=== PATIENT | female | born 1975 | race Caucasian/White ===

== ENCOUNTER 2020-01-28 14:12 | Inpatient (IN) | payer OTHER, SELFPAY ==
[2020-01-28] VITALS (7 sets, daily range): BP systolic 126–163; BP diastolic 69–79; PULSE 82–101; RESP 16–20; TEMP 36.6–36.9; O2SAT 96–98; BMI 27.4
--- NOTE | 2020-01-28 17:59 | ED.ABDPAIN ---
HPI - Abdominal Pain General Chief Complaint: Abdominal Pain Stated Complaint: abd pain Time Seen by Provider: 01/28/20 17:59 Source: patient Mode of arrival: ambulatory Limitations: no limitations History of Present Illness HPI narrative: patient status post gastric bypass surgery 9 weeks ago was doing good until 3 days ago when started having upper abdominal pain which is getting worse associated with nausea and poor oral intake been diabetic also and her blood sugar is in 200 range patient feels slightly bloated no bowel movement for last 3 days. No fever no chills no shortness of breath. No melena or blood in the stool MD elicited complaint: abdominal pain Onset (ago): day(s) (3) Pain Consistency: constant Location: epigastric Severity: moderate Quality: dull Radiation: epigastric Migration to: no migration Exacerbating factors: eating Relieving factors: nothing Associated symptoms: nausea Related Data Home Medications Medication Instructions Recorded Confirmed calcium carbonate 500 mg calcium 500 mg PO BID 01/08/20 01/16/20 (1,250 mg) tablet duloxetine 30 mg capsule,delayed 30 mg PO BID 01/08/20 01/16/20 release hydroxyzine HCl 50 mg tablet 50 mg PO BEDTIME 01/08/20 01/16/20 infusion set for insulin pump #2 ea 01/08/20 01/16/20 lactobacillus combination no.8 3 3,000 mmu cells PO DAILY 01/08/20 01/16/20 billion cell capsule multivitamin 1 cap PO DAILY 01/08/20 01/16/20 topiramate 100 mg tablet 100 mg PO BEDTIME 01/08/20 01/16/20 Previous Rx's Medication Instructions Recorded sucralfate 100 mg/mL oral 10 ml PO QID 30 Days #1200 ml 01/27/20 suspension Allergies Allergy/AdvReac Type Severity Reaction Status Date / Time codeine [Codeine] Allergy Unknown N/V, Unverified 01/08/20 12:29 vomiting Sulfa (Sulfonamide Allergy Unknown RASH Unverified 01/08/20 12:29 Antibiotics) [SULFA (SULFONAMIDE ANTIBIOTICS)] Sulfa Allergy Unknown rash Uncoded 01/08/20 12:29 Review of Systems Review of Systems REVIEW OF SYSTEMS: Pertinent positives and negatives are stated above in the history. GEN: no fevers, chills, fatigue HEENT: no nasal congestion, sore throat, ear pain NEURO: no headache, dizziness, focal weakness PULM: no cough, shortness of breath CV: no chest pain, palpitations, LE edema ABD: per HPI : no dysuria, urgency, frequency SKIN: no rash ROS otherwise negative x 10 Physical Exam Vital Signs: Vital Signs: Vital Signs Temp Pulse Resp BP Pulse Ox 01/28/20 21:14 98.5 F 88 20 148/79 H 96 01/28/20 20:13 16 01/28/20 19:34 97.8 F 84 16 145/77 H 98 01/28/20 19:15 98.5 F 82 20 140/69 H 97 01/28/20 14:23 97.8 F 101 H 16 126/70 98 Body Mass Index 27.4 Appearance: Alert. Oriented X3. in mild distress. Eyes: Pupils equal, round and reactive to light. ENT: oral mucosa dry no pallor or icterus Neck: Normal inspection. Neck supple. CVS: Normal heart rate and rhythm. Pulses normal. Respiratory: No respiratory distress. Breath sounds normal. Abdomen: Soft and tenderness present in upper abdomen, epigastric area no distension bowel sounds are sluggish no mass palpable . No rebound tenderness or guarding Skin: Skin warm and dry. Normal skin color. Normal skin turgor. Extremities: No lower extremity edema. Good range of movement Neuro: Oriented X 3. No motor deficit. No sensory deficit. Course Course Course Narrative: patient status post gastric bypass surgery with increased abdominal pain and dry heaves unable to take any p.o. fluids for last 3 days workup showed edematous efferent part of the small bowel without any obstruction. Patient is slightly ketotic from poor oral intake and diabetes blood sugar has improved to 231, lactic acid level is normal. Case discussed with FIORELLA for bariatric surgery will admit the patient IV hydration patient is on insulin pump on 13 units basal per 24 hours and patient is aware bolus doses according to carbohydrate intake MDM - Abdominal Pain Differential Diagnosis Differential diagnosis: Likely bowel perforation, gastritis and small bowel obstruction Lab Data Result diagrams: 01/28/20 19:10 01/28/20 19:10 Labs: Lab Results 01/28/20 01/28/20 01/28/20 Range/Units 19:10 19:10 19:10 WBC 12.3 H (4.8-10.8) X10*3/uL RBC 3.88 L (4.20-5.50) X10*6/uL Hgb 11.3 L (12.0-16.0) g/dl Hct 35.1 L (37-47) % MCV 90.5 (80-98) fL MCH 29.1 (27.0-33.0) pg MCHC 32.2 (31.0-35.0) g/dl RDW 13.5 (11.0-16.0) % Plt Count 315 (160-400) X10*3/uL MPV 10.9 (9.4-12.3) fL Immature Gran % (Auto) 0.7 H (0.0-0.4) % Neut % (Auto) 85.0 H (45-73) % Lymph % (Auto) 8.6 L (20-40) % [place] % (Auto) 5.3 (2-11) % Eos % (Auto) 0.1 (0-4) % Baso % (Auto) 0.3 (0-2) % Lymph # (Auto) 1.1 L (1.2-4.9) X10*3/uL [place] # (Auto) 0.7 (0.1-1.2) X10*3/uL Eos # (Auto) 0.0 (0.0-0.4) X10*3/uL Baso # (Auto) 0.0 (0.0-0.2) X10*3/uL Abs Immat Gran (auto) 0.09 H (0.00-0.03) X10*3/uL Absolute Neuts (auto) 10.5 H (2.0-8.3) X10*3/uL Absolute Nucleated RBC 0.000 (0.0-0.012) X10*3/uL Nucleated RBC % (auto) 0.0 (0.0-0.2) /100WBC Sodium 137 (135-145) mmol/L Potassium 4.5 (3.3-5.1) mmol/l Chloride 104 (96-108) mmol/L Carbon Dioxide 16 L (22-29) mmol/L Anion Gap 22 H (12-20) BUN 18 H (9-16) mg/dL Creatinine 0.93 (0.5-1.4) mg/dL Estim Creat Clear Calc 75.3 Estimated GFR > 60 POC Glucose (60-115) mg/dL Random Glucose 326 H (60-115) mg/dL Lactic Acid 0.8 (0.5-2.0) mmol/L Calcium 8.3 L (8.4-10.2) mg/dL Magnesium (1.6-2.6) mg/dL Total Bilirubin 0.3 (0.0-1.0) mg/dL Direct Bilirubin 0.2 (0.0-0.5) mg/dL AST 13 (5-31) U/L ALT 11 (0-31) U/L Alkaline Phosphatase 118 H (39-117) U/L Total Protein 6.0 L (6.5-8.0) g/dL Albumin 3.2 L (3.5-5.0) g/dL Lipase 8 (8-78) U/L Urine Color Urine Appearance Urine pH (5.0-8.0) Ur Specific [place] (1.005-1.025) Urine Protein (NEG-TRACE) MG/DL Urine Glucose (UA) (NEG) MG/DL Urine Ketones (NEG) MG/DL Urine Blood (NEG) Urine Nitrite (NEG) Ur Leukocyte Esterase (NEG) Urine RBC (0) /HPF Urine WBC (0-4) /HPF Ur Squamous Epith Cells /LPF Urine Bacteria /LPF Acetone, Qual (Negative) Coronavirus (PCR) (Negative) 01/28/20 01/28/20 01/28/20 Range/Units 19:10 19:10 20:17 WBC (4.8-10.8) X10*3/uL RBC (4.20-5.50) X10*6/uL Hgb (12.0-16.0) g/dl Hct (37-47) % MCV (80-98) fL MCH (27.0-33.0) pg MCHC (31.0-35.0) g/dl RDW (11.0-16.0) % Plt Count (160-400) X10*3/uL MPV (9.4-12.3) fL Immature Gran % (Auto) (0.0-0.4) % Neut % (Auto) (45-73) % Lymph % (Auto) (20-40) % [place] % (Auto) (2-11) % Eos % (Auto) (0-4) % Baso % (Auto) (0-2) % Lymph # (Auto) (1.2-4.9) X10*3/uL [place] # (Auto) (0.1-1.2) X10*3/uL Eos # (Auto) (0.0-0.4) X10*3/uL Baso # (Auto) (0.0-0.2) X10*3/uL Abs Immat Gran (auto) (0.00-0.03) X10*3/uL Absolute Neuts (auto) (2.0-8.3) X10*3/uL Absolute Nucleated RBC (0.0-0.012) X10*3/uL Nucleated RBC % (auto) (0.0-0.2) /100WBC Sodium (135-145) mmol/L Potassium (3.3-5.1) mmol/l Chloride (96-108) mmol/L Carbon Dioxide (22-29) mmol/L Anion Gap (12-20) BUN (9-16) mg/dL Creatinine (0.5-1.4) mg/dL Estim Creat Clear Calc Estimated GFR POC Glucose (60-115) mg/dL Random Glucose (60-115) mg/dL Lactic Acid (0.5-2.0) mmol/L Calcium 8.2 L (8.4-10.2) mg/dL Magnesium 1.9 (1.6-2.6) mg/dL Total Bilirubin (0.0-1.0) mg/dL Direct Bilirubin (0.0-0.5) mg/dL AST (5-31) U/L ALT (0-31) U/L Alkaline Phosphatase (39-117) U/L Total Protein (6.5-8.0) g/dL Albumin (3.5-5.0) g/dL Lipase (8-78) U/L Urine Color YELLOW Urine Appearance CLEAR Urine pH 6.0 (5.0-8.0) Ur Specific [place] >= 1.030 H (1.005-1.025) Urine Protein 1+ H (NEG-TRACE) MG/DL Urine Glucose (UA) 250 H (NEG) MG/DL Urine Ketones >=80 (NEG) MG/DL Urine Blood NEG (NEG) Urine Nitrite NEG (NEG) Ur Leukocyte Esterase NEG (NEG) Urine RBC 0 (0) /HPF Urine WBC 0-2 (0-4) /HPF Ur Squamous Epith Cells 1+ /LPF Urine Bacteria 1+ /LPF Acetone, Qual Small H (Negative) Coronavirus (PCR) (Negative) 01/28/20 01/28/20 Range/Units 22:04 22:25 WBC (4.8-10.8) X10*3/uL RBC (4.20-5.50) X10*6/uL Hgb (12.0-16.0) g/dl Hct (37-47) % MCV (80-98) fL MCH (27.0-33.0) pg MCHC (31.0-35.0) g/dl RDW (11.0-16.0) % Plt Count (160-400) X10*3/uL MPV (9.4-12.3) fL Immature Gran % (Auto) (0.0-0.4) % Neut % (Auto) (45-73) % Lymph % (Auto) (20-40) % [place] % (Auto) (2-11) % Eos % (Auto) (0-4) % Baso % (Auto) (0-2) % Lymph # (Auto) (1.2-4.9) X10*3/uL [place] # (Auto) (0.1-1.2) X10*3/uL Eos # (Auto) (0.0-0.4) X10*3/uL Baso # (Auto) (0.0-0.2) X10*3/uL Abs Immat Gran (auto) (0.00-0.03) X10*3/uL Absolute Neuts (auto) (2.0-8.3) X10*3/uL Absolute Nucleated RBC (0.0-0.012) X10*3/uL Nucleated RBC % (auto) (0.0-0.2) /100WBC Sodium (135-145) mmol/L Potassium (3.3-5.1) mmol/l Chloride (96-108) mmol/L Carbon Dioxide (22-29) mmol/L Anion Gap (12-20) BUN (9-16) mg/dL Creatinine (0.5-1.4) mg/dL Estim Creat Clear Calc Estimated GFR POC Glucose 231 H (60-115) mg/dL Random Glucose (60-115) mg/dL Lactic Acid (0.5-2.0) mmol/L Calcium (8.4-10.2) mg/dL Magnesium (1.6-2.6) mg/dL Total Bilirubin (0.0-1.0) mg/dL Direct Bilirubin (0.0-0.5) mg/dL AST (5-31) U/L ALT (0-31) U/L Alkaline Phosphatase (39-117) U/L Total Protein (6.5-8.0) g/dL Albumin (3.5-5.0) g/dL Lipase (8-78) U/L Urine Color Urine Appearance Urine pH (5.0-8.0) Ur Specific [place] (1.005-1.025) Urine Protein (NEG-TRACE) MG/DL Urine Glucose (UA) (NEG) MG/DL Urine Ketones (NEG) MG/DL Urine Blood (NEG) Urine Nitrite (NEG) Ur Leukocyte Esterase (NEG) Urine RBC (0) /HPF Urine WBC (0-4) /HPF Ur Squamous Epith Cells /LPF Urine Bacteria /LPF Acetone, Qual (Negative) Coronavirus (PCR) NEGATIVE (Negative) Discharge Plan Discharge Clinical Impression: History of Efra-en-Y gastric bypass, Hyperglycemia Abdominal pain Qualifiers: Abdominal location: periumbilical Qualified Code(s): R10.33 - Periumbilical pain Patient Disposition: Admitted As Inpatient [facility] Past Medical History Medical History (Updated 01/28/20 @ 23:22 by Annalee Boykin PA-C) Chronic migraine w/o aura w/o status migrainosus, not intractable Hypertension Insulin dependent diabetes mellitus Malabsorption due to intolerance, not elsewhere classified Overweight (BMI 25.0-29.9) Surgical History (Updated 01/28/20 @ 23:22 by Annalee Boykin PA-C) History of History of repair of hiatal hernia History of Efra-en-Y gastric bypass History of total abdominal hysterectomy S/P laparoscopic sleeve gastrectomy Family History Family History Father Type 2 diabetes mellitus HTN (hypertension) Mother Obesity History of breast cancer Daughter No problems noted. Brother No problems noted. Son No problems noted. Social History Social History Alcohol intake: current Smoking Status: Former smoker Substance Use Type: Marijuana Advance Directives: No Advance Directives Information Provided: No
--- NOTE | 2020-01-28 18:08 | CT_ITS ---
EXAMINATION: CT ABDOMEN AND PELVIS WITH CONTRAST CLINICAL INFORMATION: Upper abdominal pain status post gastric bypass. COMPARISON: None TECHNIQUE: Multidetector volumetric images were obtained from the superior aspect of the liver through the pubic symphysis following administration 85 mL ofOmnipaque 350 intravenous contrast. Sagittal and coronal reformatted images were obtained on the technologist's workstation. Oral contrast: No This CT examination was performed using dose optimization techniques as appropriate, variously including the following: *Automated exposure control *Adjustment of mA and/or kV according to patient size (this includes techniques or standardized protocols for targeted exams where dose is matched to indication/reason for exam; i.e. extremities or head) *Use of iterative reconstruction technique DLP: 530 mGy-cm FINDINGS: LUNG BASES: The visualized lung bases are unremarkable. LIVER, GALLBLADDER, AND BILIARY TREE: The liver is normal in size, shape, and attenuation. No focal hepatic lesion or biliary ductal dilatation is present. The gallbladder is unremarkable with no evidence of radiopaque gallstones, gallbladder wall thickening, or obvious pericholecystic inflammatory changes. PANCREAS: Unremarkable. SPLEEN: Unremarkable. ADRENAL GLANDS: Unremarkable. KIDNEYS AND URETERS: The kidneys are normal in size, shape, and attenuation. No hydronephrosis, hydroureter, or calculi seen. No perinephric stranding. BLADDER: Unremarkable. GASTROINTESTINAL TRACT: Status post gastric bypass. The efferent loop demonstrates significant edema of the wall involving about 20 cm of length of the proximal small bowel. This does not cause obstruction. Oral contrast reaches the mid small bowel loops which are nondilated. Contrast is also present in the colon, mixed with stool. There is a moderate to large-volume of stool in the colon. The appendix is normal. ABDOMINAL WALL: No significant hernia is appreciated. LYMPH NODES: Normal. VASCULAR: There are scattered small volume of Atherosclerotic vascular calcifications of aorta and iliac arteries. No aneurysm. PELVIC VISCERA: Unremarkable. OSSEOUS STRUCTURES: Unremarkable. CT/CT abdomen pelvis w con IMPRESSION: Status post gastric bypass. There is significant edema involving the efferent loop. There is no obstruction.
[2020-01-28] MEDS: ondansetron HCL 4 MG/2 ML VIAL IVPUSH ×2 (18:57→21:59)
[2020-01-28] MEDS: Morphine Sulfate 4 MG/ML CARTRIDGE IVPUSH ×2 (18:57→20:13)
[2020-01-28] MEDS: 0.9 % Sodium Chloride 1,000 ML 999 ML IVCONT ×2 (18:57→21:59)
[2020-01-28 19:25] LABS: MANUAL DIFF FLAG NO
[2020-01-28 19:26] LABS: Basophils Percent Auto 0.3 % (0-2); Eosinophils Percent Auto 0.1 % (0-4); Hematocrit 35.1 % (37-47); Hemoglobin 11.3 g/dl (12.0-16.0); Imm Gran Abs Auto 0.09 X10*3/uL (0.00-0.03); Imm Gran Pct Auto 0.7 % (0.0-0.4); Lymphocytes Absolute Auto 1.1 X10*3/uL (1.2-4.9); Lymphocytes Percent Auto 8.6 % (20-40); Mean Corpuscular HGB Conc 32.2 g/dl (31.0-35.0); Mean Corpuscular Hemoglobin 29.1 pg (27.0-33.0); Mean Corpuscular Volume 90.5 fL (80-98); Mean Platelet Volume 10.9 fL (9.4-12.3); Monocytes Absolute Auto 0.7 X10*3/uL (0.1-1.2); Monocytes Percent Auto 5.3 % (2-11); Neutrophils Absolute Auto 10.5 X10*3/uL (2.0-8.3); Platelet Count 315 X10*3/uL (160-400); Red Blood Count 3.88 X10*6/uL (4.20-5.50); Red Cell Distribution Width 13.5 % (11.0-16.0); White Blood Count 12.3 X10*3/uL (4.8-10.8)
--- NOTE | 2020-01-28 19:40 | PC.NURSE ---
Pt reports decreased nausea and epigastric pain since medication. ambulates to bathroom w. steady and white gait
[2020-01-28 19:55] LABS: Lactic Acid 0.8 mmol/L (0.5-2.0)
[2020-01-28 19:57] LABS: Calcium 8.2 mg/dL (8.4-10.2); Magnesium 1.9 mg/dL (1.6-2.6)
[2020-01-28 20:00] LABS: Acetone, serum QL Small (Negative); Alanine Aminotransferase 11 U/L (0-31); Albumin Level 3.2 g/dL (3.5-5.0); Alkaline Phosphatase 118 U/L (39-117); Anion Gap 22 (12-20); Aspartate Amino Transferase 13 U/L (5-31); Bilirubin Direct 0.2 mg/dL (0.0-0.5); Bilirubin Total 0.3 mg/dL (0.0-1.0); Blood Urea Nitrogen 18 mg/dL (9-16); Calcium 8.3 mg/dL (8.4-10.2); Carbon Dioxide 16 mmol/L (22-29); Chloride 104 mmol/L (96-108); Creatinine Clr Calc Pharmacy 75.3; Estimated Glomerular Filt Rate > 60; Glucose Random 326 mg/dL (60-115); Lipase 8 U/L (8-78); Potassium 4.5 mmol/l (3.3-5.1); Sodium 137 mmol/L (135-145)
[2020-01-28 20:23] LABS: Appearance Urine CLEAR; Color Urine YELLOW; Glucose Urine UA 250 MG/DL (NEG); Leukocyte Esterase Urine NEG (NEG); Nitrite Urine NEG (NEG); Specific Gravity - Urine >= 1.030 (1.005-1.025); Urine Blood NEG (NEG); Urine Ketones >=80 MG/DL (NEG); Urine Protein 1+ MG/DL (NEG-TRACE)
[2020-01-28 20:31] LABS: RBC Urine 0 /HPF (0); WBC Urine 0-2 /HPF (0-4)
[2020-01-28 20:32] LABS: Bacteria Urine 1+ /LPF; Squamous Epithelial Cell Urine 1+ /LPF
--- NOTE | 2020-01-28 21:09 | PC.NURSE ---
Pt reports increased nausea, provider aware
[2020-01-28 22:09] LABS: Glucose, Whole Blood 231 mg/dL (60-115)
--- NOTE | 2020-01-28 22:58 | P.HPGS_ITS ---
History of Present Illness History of Present Illness Chief complaint: ABDOMINAL PAIN <Annalee Boykin PA-C - Last Filed: 01/28/20 23:25> Narrative: Araceli Vides is a 44 year old female who is s/p LSG to [facility] 9 weeks ago. History per ED attending. Pt was feeling well until 4 d prior to admission when she began having LUQ pain and multiple episodes of loose stool. This persisted and became associated with nausea and dry heaves. She called the bariatric office 01/26 with similar complaints and she was started on carafate id for presumed gastritis. Her symtpoms worsened today and she not ed dark urine due to inability to tolerate fluids and came to ED at [facility]. Kaci continues to have + flatus, no BM's in ED. <Annalee Boykin PA-C - Last Filed: 01/28/20 23:25> this is a 44-year-old lady who underwent conversion from a sleeve gastrectomy to a gastric bypass for severe gastroesophageal reflux about 9 weeks ago. Patient reports she started having some loose stools that turned to diarrhea over this past weekend. She took 1/2 of an Imodium and had no further stools. She did call and speak with me 2 days ago and reported having some mild epigastric discomfort. We attributed to likely gastritis following recent surgery and placed her on Carafate. Patient reports yesterday her epigastric pain was worse and she had associated nausea and dry heaves and was unable to tolerate liquids and had dark urine. She came to the emergency department and had IV fluids as well as workup with laboratory values and CT scan abdomen pelvis with p.o. contrast. Laboratory values were consistent with dehydration with a white blood cell count of 12 neutrophilia to 80%. Her kidney function was within normal limits. Patient was hydrated and today's labs are now normal. Patient did had a CT scan abdomen and pelvis with p.o. contrast which showed some edematous appearing bowel that is likely the Becki limb. There is no evidence of any bowel obstruction. There is contrast in the distal small bowel as well as all of the transverse colon. There is some mild stool burden within the colon. Patient reports her pain is significantly improved after being hydrated. When she came to the emergency department her pain was a 10/10 and is now 6/10. Her nausea has resolved. She is passing gas but has not had a bowel movement the past 3 days. Vital signs are within normal limits. <Audelia Castaneda MD - Last Filed: 01/29/20 10:28> Review of Systems Constitutional: Constitutional: Reports anorexia, Reports fatigue, Denies fe isaiah(s) and Reports lethargy <Audelia Castaneda MD - Last Filed: 01/29/20 10:28> Eyes: Eyes: Denies blurry vision, Denies diplopia and Reports requires corrective lenses <Audelia Castaneda MD - Last Filed: 01/29/20 10:28> ENT: Denies dysphagia, Denies vertigo and Denies dizziness <Audelia Castaneda MD - Last Filed: 01/29/20 10:28> Cardiovascular: Cardiovascular: Denies Abdominal Distension, Denies chest pain, Denies chest pain at rest, Denies chest pain with activity, Reports Epigastric Pain, Denies diaphoresis, Denies syncope, Denies rapid heart rate and Denies pedal edema <Audelia Castaneda MD - Last Filed: 01/29/20 10:28> Gastrointestinal: Gastrointestinal: Reports as per HPI <Annalee Boykin PA-C - Last Filed: 01/28/20 23:25> Gastrointestinal: Reports abdominal pain ( epigastric with associated dry heaving and nausea), Denies dysphagia, Denies heartburn, Reports diarrhea, Reports loose stools (No stools in the past 3 days), Reports nausea and Denies vomiting <Audelia Castaneda MD - Last Filed: 01/29/20 10:28> Genitourinary: Genitourinary: Denies hematuria, Denies urinary frequency, Denies difficulty voiding, Denies urinary hesitancy and Denies urinary urgency <Audelia Castaneda MD - Last Filed: 01/29/20 10:28> Musculoskeletal: Musculoskeletal: Denies joint swelling, Denies muscle weakness and Denies stiffness <Audelia Castaneda MD - Last Filed: 01/29/20 10:28> Neurologic: Denies confusion, Denies vertigo, Denies dizziness, Denies syncope and Denies memory loss <Audelia Castaneda MD - Last Filed: 01/29/20 10:28> Psychiatric: Psychiatric: Reports anxiety, Denies confusion, Reports depression, Denies memory loss and Denies suicidal ideation <Audelia Castaneda MD - Last Filed: 01/29/20 10:28> Endocrine: Endocrine: Denies cold intolerance, Reports fatigue, Denies heat intolerance and Denies polydipsia <Audelia Castaneda MD - Last Filed: 01/29/20 10:28> Hematologic/Lymphatic: Hematologic/Lymphatic: Denies easy bleeding, Denies easy bruising and Denies lymphadenopathy <Audelia Castaneda MD - Last Filed: 01/29/20 10:28> [facility] Past Medical History Medical History: Medical History Chronic migraine w/o aura w/o status migrainosus, not intractable Hypertension Insulin dependent diabetes mellitus Malabsorption due to intolerance, not elsewhere classified Overweight (BMI 25.0-29.9) <Annalee Boykin PA-C - Last Filed: 01/28/20 23:25> Family History Family History: Family History Father Type 2 diabetes mellitus HTN (hypertension) Mother Obesity History of breast cancer Daughter No problems noted. Brother No problems noted. Son No problems noted. <Annalee Boykin PA-C - Last Filed: 01/28/20 23:25> Surgical History Surgical History: Surgical History History of History of repair of hiatal hernia History of Becki-en-Y gastric bypass History of total abdominal hysterectomy S/P laparoscopic sleeve gastrectomy <Annalee Boykin PA-C - Last Filed: 01/28/20 23:25> Social History Social History: Social History Household Members: Unknown / Unable to assess Housing: House Alcohol intake: current Smoking Status: Unknown if ever smoked Substance Use Type: Unknown Currently Displaying Signs/Symptoms of Drug Intoxication Withdrawal: No Advance Directives: No Advance Directives Information Provided: No Do you have thoughts of harming others: None Recently lost weight without trying: No service: No Current occupational status: employed <Annalee Boykin PA-C - Last Filed: 01/28/20 23:25> Meds Allergies/Adverse reactions: Allergies Allergy/AdvReac Type Severity Reaction Status Date / Time codeine [Codeine] Allergy Unknown N/V, Unverified 01/08/20 12:29 vomiting Sulfa (Sulfonamide Allergy Unknown RASH Unverified 01/08/20 12:29 Antibiotics) [SULFA (SULFONAMIDE ANTIBIOTICS)] Sulfa Allergy Unknown rash Uncoded 01/08/20 12:29 <Annalee Boykin PA-C - Last Filed: 01/28/20 23:25> Home medications: Home Medications Medication Instructions Recorded Confirmed Type calcium carbonate 500 mg calcium 500 mg PO BID 01/08/20 01/29/20 History (1,250 mg) tablet duloxetine 30 mg capsule,delayed 30 mg PO BID 01/08/20 01/16/20 History release hydroxyzine HCl 50 mg tablet 50 mg PO BEDTIME 01/08/20 01/16/20 History infusion set for insulin pump #2 ea 01/08/20 01/16/20 History lactobacillus combination no.8 3 3,000 mmu cells PO DAILY 01/08/20 01/16/20 History billion cell capsule multivitamin 1 cap PO DAILY 01/08/20 01/16/20 History topiramate 100 mg tablet 100 mg PO BEDTIME 01/08/20 01/16/20 History <Annalee Boykin PA-C - Last Filed: 01/28/20 23:25> Physical Exam Vital Signs: Vital Signs: Vital Signs Temp Pulse Resp BP Pulse Ox 01/28/20 21:14 98.5 F 88 20 148/79 H 96 01/28/20 20:13 16 01/28/20 19:34 97.8 F 84 16 145/77 H 98 01/28/20 19:15 98.5 F 82 20 140/69 H 97 01/28/20 14:23 97.8 F 101 H 16 126/70 98 Body Mass Index 27.4 <SILVIA Adamson Last Filed: 01/28/20 23:25> per ED attending Dr Byers <SILVIA Adamson Last Filed: 01/28/20 23:25> Const: General: cooperative, healthy appearing, comfortable and no acute distress; No confusion <Audelia Castaneda MD - Last Filed: 01/29/20 10:28> Orientation/consciousness: No confusion <Audelia Castaneda MD - Last Filed: 01/29/20 10:28> HENMT: Head: Yes normal to inspection, Yes normocephalic and Yes atraumatic <Audelia Castaneda MD - Last Filed: 01/29/20 10:28> Eyes: General: appearance normal, both eyes and all related structures <Audelia Castaneda MD - Last Filed: 01/29/20 10:28> Sclerae: sclerae normal <Audelia Castaneda MD - Last Filed: 01/29/20 10:28> EOM: EOMs intact bilaterally <Audelia Castaneda MD - Last Filed: 01/29/20 10:28> Neck: Neck: Yes normal visual inspection, Yes full ROM and Yes no lymphadenopathy <Audelia Castaneda MD - Last Filed: 01/29/20 10:28> Thyroid: Thyroid normal <Audelia Castaneda MD - Last Filed: 01/29/20 10:28> Chest: Chest palpation & inspection: normal inspection of the chest <Audelia Castaneda MD - Last Filed: 01/29/20 10:28> Resp: Effort & Inspection: normal respiratory effort, able to speak in complete sentences, no audible wheezes and no cough <Audelia Castaneda MD - Last Filed: 01/29/20 10:28> Auscultation: clear to auscultation bilaterally <Audelia Castaneda MD - Last Filed: 01/29/20 10:28> Cardio: Jugular venous distension: no JVD <Audelia Castaneda MD - Last Filed: 01/29/20 10:28> Heart sounds: S1 normal heart sound present, S2 normal heart sound present, no gallops, no murmurs and no rubs <Audelia Castaneda MD - Last Filed: 01/29/20 10:28> GI: Inspection: Yes normal to inspection, No Abdominal wall edema, No distended and Yes obesity <Audelia Castaneda MD - Last Filed: 01/29/20 10:28> Palpation (GI): Soft to palpation, nontender, no guarding, no hepatosplenomegaly , no hernias and no masses <Audelia Castaneda MD - Last Filed: 01/29/20 10:28> Skin: General skin exam: no rashes or lesions noted <Audelia Castaneda MD - Last Filed: 01/29/20 10:28> Neuro: General: No confusion <Audelia Castaneda MD - Last Filed: 01/29/20 10:28> Extrem: General: Yes normal to inspection and Yes full ROM <Audelia Castaneda MD - Last Filed: 01/29/20 10:28> Right upper extremity: normal to inspection <Audelia Castaneda MD - Last Filed: 01/29/20 10:28> Left upper extremity: normal to inspection and full ROM <Audelia Castaneda MD - Last Filed: 01/29/20 10:28> Psych: Appearance: grossly normal and well kempt <Audelia Castaneda MD - Last Filed: 01/29/20 10:28> Speech and movement: Normal speech and movement present <Audelia Castaneda MD - Last Filed: 01/29/20 10:28> Affect: normal affect <Audelia Castaneda MD - Last Filed: 01/29/20 10:28> Attitude: cooperative <Audelia Castaneda MD - Last Filed: 01/29/20 10:28> Thought process: Normal thought process present <Audelia Castaneda MD - Last Filed: 01/29/20 10:28> Thought content: Normal thought content present <Audelia Castaneda MD - Last Filed: 01/29/20 10:28> Insight: Good insight present (Psych) <Audelia Castaneda MD - Last Filed: 01/29/20 10:28> Results Results Labs: Short CBC 01/28/20 Range/Units 19:10 WBC 12.3 H (4.8-10.8) X10*3/uL Hgb 11.3 L (12.0-16.0) g/dl Hct 35.1 L (37-47) % Plt Count 315 (160-400) X10*3/uL BMP 01/28/20 01/28/20 19:10 19:10 Sodium 137 Potassium 4.5 Chloride 104 Carbon Dioxide 16 L BUN 18 H Creatinine 0.93 Calcium 8.3 L 8.2 L Liver Function 01/28/20 Range/Units 19:10 Total Bilirubin 0.3 (0.0-1.0) mg/dL Direct Bilirubin 0.2 (0.0-0.5) mg/dL AST 13 (5-31) U/L ALT 11 (0-31) U/L Alkaline Phosphatase 118 H (39-117) U/L Albumin 3.2 L (3.5-5.0) g/dL Urine 01/28/20 Range/Units 20:17 Urine Color YELLOW Urine Appearance CLEAR Urine pH 6.0 (5.0-8.0) Ur Specific [place] >= 1.030 H (1.005-1.025) Urine Protein 1+ H (NEG-TRACE) MG/DL Urine Glucose (UA) 250 H (NEG) MG/DL <Annalee Boykin PA-C - Last Filed: 01/28/20 23:25> CT scan - pelvis: report reviewed (edematous proximal small bowel, no obstruction), image r eviewed (large amounts of stool, question of patency of j-j anastomosis) and other (Discussed findings with Dr Schmidt - covering attending. ) <Annalee Boykin PA-C - Last Filed: 01/28/20 23:25> Assessment and Plan (1) History of Becki-en-Y gastric bypass: Problem details: laparoscopic conversion of sleeve gastrectomy to becki-en-y gastric bypass 11/26/2019, Dr Castaneda to review CT scan in am. <Annalee Boykin PA-C - Last Filed: 01/28/20 23:25> Status: Acute <SILVIA Adamson Last Filed: 01/28/20 23:25> (2) Insulin dependent diabetes mellitus: Problem details: patient has insulin pump - humalog, uses ~13 U in 24 hrs, admitted with hyperglycemia , normalizing with IV hydration. Will continue to use insulin pump to keep BS between 100 and 200. <SILVIA Adamson Last Filed: 01/28/20 23:25> Status: Inactive <SILVIA Adamson Last Filed: 01/28/20 23:25> (3) Abdominal pain: Qualifiers: Abdominal location: periumbilical Qualified Code(s): R10.33 - Periumbilical pain <Annalee Boykin PA-C - Last Filed: 01/28/20 23:25> Problem details: Pt with 5 d history of loose stool, nausea, dry heaves, upper abd pain and inability to tolerate po liquids or food. Slightly elevated WBC with increased neutrophils with edematous bowel may represent GI infection - started on Zosyn. Stool cultures if patient continues to have loose stool. Pt to remain NPO, IVF hydration, IV PPI, repeat labs in am. Dr Castaneda bariatric surgeon to assess in am <Annalee Boykin PA-C - Last Filed: 01/28/20 23:25> Status: Acute <Annalee Boykin PA-C - Last Filed: 01/28/20 23:25> I reviewed the patient's CT scan of the abdomen and pelvis which showed some edematous cyst proximal small bowel that is likely the Becki limb. Patient did have 2 day history of loose stools which may likely main that her gastroenteritis is infectious in nature. Patient has not had any further stools in past 3 days. If patient does have further stools we will take a sample and s ent for culture. Patient is currently being kept NPO. I plan to do a endoscopy today to further evaluate the stomach for any evidence ischemia or ulceration. I discussed this with the patient and she agrees to proceed with the plan. Patient is clinically improved after being hydrated. If there is no evidence of abnormality on endoscopy will restart the patient on protein shakes and likely discharge the patient home tomorrow if she has better pain control. <Audelia Castaneda MD - Last Filed: 01/29/20 10:28>
[2020-01-28 23:23] LABS: SARS COV2 PCR INHOUSE NEGATIVE (Negative)
[2020-01-28] MEDS: Prochlorperazine Edisylate 10 MG/2 ML VIAL IVPUSH (23:41)
[2020-01-29] VITALS (8 sets, daily range): BP systolic 103–141; BP diastolic 58–75; PULSE 68–82; RESP 12–20; TEMP 36.1–37.7; O2SAT 97–100
--- NOTE | 2020-01-29 00:01 | PC.NURSE ---
rn to rn with gianni.
[2020-01-29 00:29] LABS: Lactic Acid 0.7 mmol/L (0.5-2.0)
[2020-01-29] MEDS: Piperacillin Sodium/Tazobactam 3.375 GM in 0.9 % Sodium Chloride 50 ML IV ×4 (01:10→20:09)
[2020-01-29] MEDS: Lactated Ringers 1,000 ML 150 ML IVCONT ×2 (01:12→08:15)
[2020-01-29 01:13] LABS: Glucose, Whole Blood 193 mg/dL (60-115)
[2020-01-29] MEDS: Pantoprazole Sodium 40 MG/10 ML VIAL IVPUSH ×3 (01:27→20:09)
[2020-01-29 06:51] LABS: Basophils Percent Auto 0.4 % (0-2); Eosinophils Absolute Auto 0.2 X10*3/uL (0.0-0.4); Eosinophils Percent Auto 1.6 % (0-4); Hematocrit 29.9 % (37-47); Hemoglobin 9.7 g/dl (12.0-16.0); Imm Gran Abs Auto 0.05 X10*3/uL (0.00-0.03); Imm Gran Pct Auto 0.5 % (0.0-0.4); Lymphocytes Absolute Auto 2.4 X10*3/uL (1.2-4.9); Lymphocytes Percent Auto 23.9 % (20-40); MANUAL DIFF FLAG NO; Mean Corpuscular HGB Conc 32.4 g/dl (31.0-35.0); Mean Corpuscular Hemoglobin 29.4 pg (27.0-33.0); Mean Corpuscular Volume 90.6 fL (80-98); Mean Platelet Volume 10.8 fL (9.4-12.3); Monocytes Absolute Auto 0.7 X10*3/uL (0.1-1.2); Monocytes Percent Auto 7.3 % (2-11); Neutrophils Absolute Auto 6.5 X10*3/uL (2.0-8.3); Neutrophils Percent Auto 66.3 % (45-73); Platelet Count 288 X10*3/uL (160-400); Red Cell Distribution Width 13.2 % (11.0-16.0); White Blood Count 9.8 X10*3/uL (4.8-10.8)
[2020-01-29 07:19] LABS: Anion Gap 13 (12-20); Blood Urea Nitrogen 13 mg/dL (9-16); Calcium 7.9 mg/dL (8.4-10.2); Carbon Dioxide 21 mmol/L (22-29); Chloride 108 mmol/L (96-108); Creatinine Clr Calc Pharmacy 97.3; Estimated Glomerular Filt Rate > 60; Glucose Random 155 mg/dL (60-115); Potassium 3.9 mmol/l (3.3-5.1); Sodium 138 mmol/L (135-145)
[2020-01-29] MEDS: 0.9 % Sodium Chloride Flush 3 ML SYRINGE IVFLUSH (08:14)
[2020-01-29 08:57] LABS: Glucose, Whole Blood 136 mg/dL (60-115)
--- NOTE | 2020-01-29 09:30 | MHC.SHP ---
Pre-Procedural Eval Section A The patient is an INPATIENT: Yes The History & Physical has been completed within 30 days and I have reviewed it.: Yes Section B Chief Complaint: ABDOMINAL PAIN Allergies: Allergies Allergy/AdvReac Type Severity Reaction Status Date / Time codeine [Codeine] Allergy Unknown N/V, Unverified 01/08/20 12:29 vomiting Sulfa (Sulfonamide Allergy Unknown RASH Unverified 01/08/20 12:29 Antibiotics) [SULFA (SULFONAMIDE ANTIBIOTICS)] Sulfa Allergy Unknown rash Uncoded 01/08/20 12:29 Plan Patient has been examined and remains a candidate for the planned procedure
--- NOTE | 2020-01-29 09:33 | MHC.CM.PN ---
REHAB SERVICES AIDE completed with pt who reports she lives at home with her and adult son. Pt reports she is independent with care and mobility. She does not have any services. Pt uses an insulin pump, has no other DME. Pt reports she has a HCP completed naming her as her agent. Pt confirms PCP is Vitaliy Godfrey. Pt denies having any concerns related to DC. Current DC plan is home with no services family to transport
--- NOTE | 2020-01-29 11:30 | HO.ANESPROP2 ---
[facility] Past Medical History Medical History Chronic migraine w/o aura w/o status migrainosus, not intractable Hypertension Insulin dependent diabetes mellitus Malabsorption due to intolerance, not elsewhere classified Overweight (BMI 25.0-29.9) Family History Family History Father Type 2 diabetes mellitus HTN (hypertension) Mother Obesity History of breast cancer Daughter No problems noted. Brother No problems noted. Son No problems noted. Surgical History Surgical History History of History of repair of hiatal hernia History of Efra-en-Y gastric bypass History of total abdominal hysterectomy S/P laparoscopic sleeve gastrectomy Social History Social History Household Members: Unknown / Unable to assess Housing: House Alcohol intake: current Smoking Status: Former smoker Smoking Quit Date: 1998 Substance Use Type: Unknown Currently Displaying Signs/Symptoms of Drug Intoxication Withdrawal: No Advance Directives: No Advance Directives Information Provided: No Do you have thoughts of harming others: None Do you have a plan to hurt others: No Plan Recently lost weight without trying: No service: No Current occupational status: employed Meds Allergies Allergy/AdvReac Type Severity Reaction Status Date / Time codeine [Codeine] Allergy Unknown N/V, Unverified 01/08/20 12:29 vomiting Sulfa (Sulfonamide Allergy Unknown RASH Unverified 01/08/20 12:29 Antibiotics) [SULFA (SULFONAMIDE ANTIBIOTICS)] Sulfa Allergy Unknown rash Uncoded 01/08/20 12:29 Home Medications Medication Instructions Recorded Confirmed Type calcium carbonate 500 mg calcium 500 mg PO BID 01/08/20 01/29/20 History (1,250 mg) tablet duloxetine 30 mg capsule,delayed 30 mg PO BID 01/08/20 01/16/20 History release hydroxyzine HCl 50 mg tablet 50 mg PO BEDTIME 01/08/20 01/16/20 History infusion set for insulin pump #2 ea 01/08/20 01/16/20 History lactobacillus combination no.8 3 3,000 mmu cells PO DAILY 01/08/20 01/16/20 History billion cell capsule multivitamin 1 cap PO DAILY 01/08/20 01/16/20 History topiramate 100 mg tablet 100 mg PO BEDTIME 01/08/20 01/16/20 History Exam Exam Date and Time: January 29, 2020 1130 Height,Weight and Vital Signs: Height 5 ft 4 in Weight 72.575 kg Last Vital Signs Temp 97.7 F 01/29/20 11:20 Pulse 70 01/29/20 11:20 Resp 18 01/29/20 11:20 BP 138/72 01/29/20 11:20 Pulse Ox 99 01/29/20 11:20 Pertinent Lab Results Pertinent Lab Results: Laboratory Tests 01/28/20 01/28/20 01/28/20 19:10 19:10 19:10 WBC 12.3 H RBC 3.88 L Hgb 11.3 L Hct 35.1 L MCV 90.5 MCH 29.1 MCHC 32.2 RDW 13.5 Plt Count 315 MPV 10.9 Immature Gran % (Auto) 0.7 H Neut % (Auto) 85.0 H Lymph % (Auto) 8.[address] [place] % (Auto) 5.3 Eos % (Auto) 0.1 Baso % (Auto) 0.3 Lymph # (Auto) 1.[address] [place] # (Auto) 0.7 Eos # (Auto) 0.0 Baso # (Auto) 0.0 Abs Immat Gran (auto) 0.09 H Absolute Neuts (auto) 10.5 H Absolute Nucleated RBC 0.000 Nucleated RBC % (auto) 0.0 Sodium 137 Potassium 4.5 Chloride 104 Carbon Dioxide 16 L Anion Gap 22 H BUN 18 H Creatinine 0.93 Estim Creat Clear Calc 75.3 Estimated GFR > 60 POC Glucose Random Glucose 326 H Lactic Acid 0.8 Calcium 8.3 L Magnesium Total Bilirubin 0.3 Direct Bilirubin 0.2 AST 13 ALT 11 Alkaline Phosphatase 118 H Total Protein 6.0 L Albumin 3.2 L Lipase 8 Urine Color Urine Appearance Urine pH Ur Specific [place] Urine Protein Urine Glucose (UA) Urine Ketones Urine Blood Urine Nitrite Ur Leukocyte Esterase Urine RBC Urine WBC Ur Squamous Epith Cells Urine Bacteria Acetone, Qual Coronavirus (PCR) 01/28/20 01/28/20 01/28/20 19:10 19:10 20:17 WBC RBC Hgb Hct MCV MCH MCHC RDW Plt Count MPV Immature Gran % (Auto) Neut % (Auto) Lymph % (Auto) [place] % (Auto) Eos % (Auto) Baso % (Auto) Lymph # (Auto) [place] # (Auto) Eos # (Auto) Baso # (Auto) Abs Immat Gran (auto) Absolute Neuts (auto) Absolute Nucleated RBC Nucleated RBC % (auto) Sodium Potassium Chloride Carbon Dioxide Anion Gap BUN Creatinine Estim Creat Clear Calc Estimated GFR POC Glucose Random Glucose Lactic Acid Calcium 8.2 L Magnesium 1.9 Total Bilirubin Direct Bilirubin AST ALT Alkaline Phosphatase Total Protein Albumin Lipase Urine Color YELLOW Urine Appearance CLEAR Urine pH 6.0 Ur Specific [place] >= 1.030 H Urine Protein 1+ H Urine Glucose (UA) 250 H Urine Ketones >=80 Urine Blood NEG Urine Nitrite NEG Ur Leukocyte Esterase NEG Urine RBC 0 Urine WBC 0-2 Ur Squamous Epith Cells 1+ Urine Bacteria 1+ Acetone, Qual Small H Coronavirus (PCR) 01/28/20 01/28/20 01/28/20 22:04 22:25 23:55 WBC RBC Hgb Hct MCV MCH MCHC RDW Plt Count MPV Immature Gran % (Auto) Neut % (Auto) Lymph % (Auto) [place] % (Auto) Eos % (Auto) Baso % (Auto) Lymph # (Auto) [place] # (Auto) Eos # (Auto) Baso # (Auto) Abs Immat Gran (auto) Absolute Neuts (auto) Absolute Nucleated RBC Nucleated RBC % (auto) Sodium Potassium Chloride Carbon Dioxide Anion Gap BUN Creatinine Estim Creat Clear Calc Estimated GFR POC Glucose 231 H Random Glucose Lactic Acid 0.7 Calcium Magnesium Total Bilirubin Direct Bilirubin AST ALT Alkaline Phosphatase Total Protein Albumin Lipase Urine Color Urine Appearance Urine pH Ur Specific [place] Urine Protein Urine Glucose (UA) Urine Ketones Urine Blood Urine Nitrite Ur Leukocyte Esterase Urine RBC Urine WBC Ur Squamous Epith Cells Urine Bacteria Acetone, Qual Coronavirus (PCR) NEGATIVE 01/29/20 01/29/20 01/29/20 01:09 06:25 06:25 WBC 9.8 RBC 3.30 L Hgb 9.7 L Hct 29.9 L MCV 90.6 MCH 29.4 MCHC 32.4 RDW 13.2 Plt Count 288 MPV 10.8 Immature Gran % (Auto) 0.5 H Neut % (Auto) 66.3 Lymph % (Auto) 23.9 [place] % (Auto) 7.3 Eos % (Auto) 1.6 Baso % (Auto) 0.4 Lymph # (Auto) 2.4 [place] # (Auto) 0.7 Eos # (Auto) 0.2 Baso # (Auto) 0.0 Abs Immat Gran (auto) 0.05 H Absolute Neuts (auto) 6.5 Absolute Nucleated RBC 0.000 Nucleated RBC % (auto) 0.0 Sodium 138 Potassium 3.9 Chloride 108 Carbon Dioxide 21 L Anion Gap 13 BUN 13 Creatinine 0.72 Estim Creat Clear Calc 97.3 Estimated GFR > 60 POC Glucose 193 H Random Glucose 155 H D Lactic Acid Calcium 7.9 L Magnesium Total Bilirubin Direct Bilirubin AST ALT Alkaline Phosphatase Total Protein Albumin Lipase Urine Color Urine Appearance Urine pH Ur Specific [place] Urine Protein Urine Glucose (UA) Urine Ketones Urine Blood Urine Nitrite Ur Leukocyte Esterase Urine RBC Urine WBC Ur Squamous Epith Cells Urine Bacteria Acetone, Qual Coronavirus (PCR) 01/29/20 07:47 WBC RBC Hgb Hct MCV MCH MCHC RDW Plt Count MPV Immature Gran % (Auto) Neut % (Auto) Lymph % (Auto) [place] % (Auto) Eos % (Auto) Baso % (Auto) Lymph # (Auto) [place] # (Auto) Eos # (Auto) Baso # (Auto) Abs Immat Gran (auto) Absolute Neuts (auto) Absolute Nucleated RBC Nucleated RBC % (auto) Sodium Potassium Chloride Carbon Dioxide Anion Gap BUN Creatinine Estim Creat Clear Calc Estimated GFR POC Glucose 136 H Random Glucose Lactic Acid Calcium Magnesium Total Bilirubin Direct Bilirubin AST ALT Alkaline Phosphatase Total Protein Albumin Lipase Urine Color Urine Appearance Urine pH Ur Specific [place] Urine Protein Urine Glucose (UA) Urine Ketones Urine Blood Urine Nitrite Ur Leukocyte Esterase Urine RBC Urine WBC Ur Squamous Epith Cells Urine Bacteria Acetone, Qual Coronavirus (PCR) Airway Mallampati Class: II TM Dist: >3cm Neck ROM: Full Assessment and Plan Assessment Anesthesia Assessment: Anesthesia Plan Discussed and Chart Reviewed Final Anesthetic Review NPO: Yes ASA Class: II Final Preanesthetic Review: No Changes in Pt Med Stat, Meds/Allgs Chart Reviewed, Consent Obtained/Reviewed and Anes Risks/Benef Reviewed Patient Risk: Intermediate Procedure Risk: Low Assessment/Block/Sedation in SS: Assess/Block/Sedation-SS Anesthetic Plan Anesthetic Plan: MAC: Disposition: Standard PACU
[2020-01-29 11:56] LABS: Glucose, Whole Blood 95 mg/dL (60-115)
--- NOTE | 2020-01-29 13:08 | PM.OP ---
Brief Operative Note Date of procedure: 01/29/20 Pre-op diagnosis: Epigastric pain and edematous Efra limb on CT scan Post-op diagnosis: other ( large marginal ulcer and skip ulceration in the proximal Efra limb and distal esophagus) Procedure: esophagogastroduodenoscopy with biopsy of the Efra limb mucosa Implants: none Surgeon: Audelia Castaneda MD Anesthesia: MAC Estimated blood loss (mL): 0 Pathology: other ( proximal Efra limb) Condition: stable Disposition: PACU
[2020-01-29] MEDS: ondansetron HCL 4 MG/2 ML VIAL IVPUSH ×2 (13:43→22:12)
[2020-01-29 16:05] LABS: Glucose, Whole Blood 101 mg/dL (60-115)
--- NOTE | 2020-01-29 16:22 | PC.NURSE ---
P-patient upset asked for popsicle at on return from procedure and did not get it I-the only available popsicle on the floor has citric acid in it so patient can not have it,nurse called kitchen twice and requested early tray for this patient e-will monitor
[2020-01-29 21:07] LABS: Glucose, Whole Blood 84 mg/dL (60-115)
--- NOTE | 2020-01-29 23:42 | PC.NURSE ---
H pylori test pending,unable to obtain this afternoon,serology staff not available,[place] nursing Trade Sales Assistant aware will assist in am,Yaquelin 11-7 RN made aware
[2020-01-30] MEDS: Piperacillin Sodium/Tazobactam 3.375 GM in 0.9 % Sodium Chloride 50 ML IV ×2 (01:15→06:15)
[2020-01-30] MEDS: 0.9 % Sodium Chloride Flush 3 ML SYRINGE IVFLUSH (01:15)
[2020-01-30] MEDS: Lactated Ringers 1,000 ML 150 ML IVCONT (04:09)
--- NOTE | 2020-01-30 09:19 | PM.PNGS ---
Subjective Subjective Interval history: Patient feeling much better than when she was admitted. She underwent endoscopy yesterday and was found to have a large marginal ulcer on the jejunal surface of the anastomosis with punctate ulcerations at a. The process of healing just distal to that in the Efra limb. Beyond that the rib Efra limb appeared to be healthy and pink mucosa. There also appeared to be a ulceration of the distal esophagus as in the process of healing. Patient was started on Carafate yesterday and continues to be on IV Protonix. She was able to tolerate chicken broth without difficulty. She felt that the protein shakes were a little heavy and cause some discomfort with drinking those. Vital signs are within normal limits. Laboratory values have also come back down to the normal limits. Physical Exam Vital Signs: Vital Signs: Vital Signs Temp Pulse Resp BP Pulse Ox 01/29/20 15:20 97.7 F 72 18 119/61 97 01/29/20 14:53 97.7 F 71 20 119/58 L 98 01/29/20 12:56 98 F 72 16 130/68 98 01/29/20 12:39 99.8 F 68 12 106/60 100 01/29/20 11:20 97.7 F 70 18 138/72 99 Body Mass Index 27.4 Const: General: cooperative, healthy appearing, comfortable, no acute distress and other ( Wearing glasses) Resp: Effort & Inspection: normal respiratory effort and able to speak in complete sentences Auscultation: clear to auscultation bilaterally Cardio: Heart sounds: S1 normal heart sound present and S2 normal heart sound present GI: Inspection: Yes normal to inspection and No distended Palpation (GI): Tenderness to palpation present (GI) ( mild tenderness to deep palpation in epigastrium. No rebound or guarding.) and no guarding Extrem: General: Yes normal to inspection, Yes full ROM, No calf tenderness, No clubbing and No pedal edema Progress Note: A&P Assessment and plan (1) Marginal ulcers: Status: Acute Assessment and Plan: this is a 44-year-old lady who is 9 weeks status post gastric bypass who now has a marginal ulcer on the jejunal surface of the gastrojejunal anastomosis. She also had evidence of healing ulcer and the distal esophagus. Patient will be discharged home today to on a liquid diet which will consist of thin liquids of bone broth and chicken broth, vegetable broth, or beef broth with added collagen. The patient will consume at least 80 g of protein per day. She will drinks at least 60 oz of liquids per day. Patient will also be sent home on Carafate 1 g liquid 4 times daily and should not consume any liquids for an hour after taking Carafate. Patient will also be sent home on Protonix 40 mg tablet b.i.d.. I will follow up with this patient and about 2 weeks time frame to determine how well she is doing and how well her symptoms are resolving. The plan will be to perform a repeat endoscopy and the next 3-4 weeks if not earlier. Patient was in the room with her and they both document understanding of the plan and the liquid diet. Patient was told to call the office with any questions or concerns if she was unsure of anything or there are any changes to her clinical status. (2) History of Efra-en-Y gastric bypass: Problem details: laparoscopic conversion of sleeve gastrectomy to efra-en-y gastric bypass 11/26/2019, Dr Castaneda to review CT scan in am. Status: Acute Fall Risk Details Current Medications: Current Medications Generic Name Dose Route Start Last Admin Trade Name Freq PRN Reason Stop Dose Admin Lactated Ringer's 1,000 mls @ 150 mls/hr 01/28/20 22:45 01/30/20 04:09 Lr IVCONT 150 mls/hr .Q6H40M KEHINDE Administration Thiamine HCl 100 mg/ 1,011.2 mls @ 149.999 mls/hr 01/29/20 09:00 01/29/20 20:11 Multivitamins 10 ml/ Folic IVPUSH Infused Acid 1 mg/ Sodium Chloride DAILY KEHINDE Infusion Acetaminophen 1,000 mg in 100 mls @ 400 mls/hr 01/28/20 23:00 01/30/20 05:50 Ofirmev IV 01/31/20 17:14 Infused Q6H KEHINDE Infusion Piperacillin Sod/Tazobactam 50 mls @ 100 mls/hr 01/29/20 00:00 01/30/20 07:25 Sod 3.375 gm/ Sodium Chloride IV Infused Q6H KEHINDE Infusion Ondansetron HCl 4 mg 01/28/20 22:39 01/29/20 22:12 Ondansetron Hcl 4 Mg/2 Ml Vial IVPUSH 4 mg Q4H PRN Administration Nausea and Vomiting Pantoprazole Sodium 40 mg 01/28/20 23:00 01/29/20 20:09 Pantoprazole Sodium 40 Mg/10 Ml Vial IVPUSH 40 mg BID KEHINDE Administration Sodium Chloride 3 ml 01/29/20 00:00 01/30/20 07:26 0.9 % Sodium Chloride Flush 3 Ml Syringe IVFLUSH Not Given QSHIFT KEHINDE Sodium Chloride 3 ml 01/29/20 00:00 01/30/20 07:27 0.9 % Sodium Chloride Flush 3 Ml Syringe IVFLUSH Not Given QSHIFT KEHINDE Sucralfate 1 gm 01/29/20 17:00 01/29/20 20:09 Sucralfate 1 Gm/10 Ml Oral.Susp PO Not Given QID KEHINDE Time Spent With Patient Time: Total time spent is greater than 50% in coordination of care (as documented) at patient's floor/unit and/or counseling patient: Time with patient: 25 - 35 minutes
[2020-01-30] MEDS: Pantoprazole Sodium 40 MG/10 ML VIAL IVPUSH (09:40)
[2020-01-30] MEDS: ondansetron HCL 4 MG/2 ML VIAL IVPUSH (10:06)
[2020-01-30 11:18] LABS: Glucose, Whole Blood 80 mg/dL (60-115)
--- NOTE | 2020-01-30 13:42 | HO.POSTANES ---
Post Anesthesia Evaluation Post Anesthesia Evaluation Vital Signs: Vital Signs Temp Pulse Resp BP Pulse Ox 01/29/20 15:20 97.7 F 72 18 119/61 97 01/29/20 14:53 97.7 F 71 20 119/58 L 98 Anesthesia: Monitored Mental Status: Awake Pain Control: Satisfactory Nausea/Vomiting: None Hydration: Adequate Anesthesia-Related Issues: No Anes. Related Issues
--- NOTE | 2020-01-30 15:32 | OP_ITS ---
SURGEON: Audelia Castaneda MD PREOPERATIVE DIAGNOSIS: Epigastric pain and edematous Becki-limb on CT, status post gastric bypass 9 weeks ago. POSTOPERATIVE DIAGNOSIS: marginal anastomotic ulcer on jejunal surface comprising about 50 percent of the surface with small punctate ulcerations just distal to marginal ulcer PROCEDURE PERFORMED: Esophagogastrojejunoscopy, enteroscopy to 70 cm from incisors, jejunal biopsy x 2 ESTIMATED BLOOD LOSS:none COMPLICATIONS: None. ANESTHESIA: Total intravenous anesthesia with propofol given by the nurse program clinician. ASSISTANTS:none SPECIMENS:becki limb jejunal biopsy x 2 POSTOPERATIVE DIAGNOSES: Distal esophageal ulceration as well as large marginal ulcer on the jejunal surface of the gastrojejunal anastomosis and skip ulcerations on the mucosa in the proximal Becki-limb. DESCRIPTION OF PROCEDURE: The patient was brought into the operating room, placed on the stretcher in the left lateral decubitus position. A safety time-out was performed. A bite block was placed in teeth. Total intravenous anesthesia was administered by the nurse program clinician. Once the patient was adequately sedated, the gastroscope was placed into the posterior oropharynx, passed down the esophagus under direct vision to the distal esophagus where there was evidence of a 2 moderate-sized ulcerations at the GE junction just above the GE junction. The gastroscope was passed into the gastric lumen. There was no evidence of abnormalities of gastric lumen, it was nice and pink and healthy. The gastroscope was passed through the Becki-limb and just on the jejunal surface of the anastomosis, about half of the anastomosis proximally had evidence of a large marginal ulcer. The gastroscope was passed distally and there were small skip lesions of ulceration on the folds of the small bowel, which were biopsied x2 for sampling. Distally, there was less evidence of ulceration for the remainder of the mucosa and the small bowel was healthy and pink with a small skip areas of eschar and white ulcer. There was no evidence of any stenosis or torsion. The gastroscope was used to desufflate the gastric and the small bowel lumen and the gastroscope was removed without difficulty. The patient tolerated the procedure well. The patient was sent to recovery room in stable condition and I discussed the findings with the patient as well as have her photos of the photodocumentation of the upper endoscopy. SPECIMEN: Biopsy of the Becki-limb mucosa at the skip lesions ulceration. CONDITION POSTPROCEDURE: Fair. MD MARAL Gupta/JESSENIA / [id number] MTDD
--- NOTE | 2020-03-24 15:49 | P.DS_ITS ---
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 Patient underwent repeat endoscopy showing improvement. Patient is now having repeat endoscopy to evaluate marginal ulcer. (2) History of Becki-en-Y gastric bypass: Status: Acute Problem details: laparoscopic conversion of sleeve gastrectomy to becki-en-y gastric bypass DS: Medications Discharge Medications Home Medications: Home Medications Medication Instructions Recorded Confirmed duloxetine 30 mg capsule,delayed 30 mg PO BID 01/08/20 03/05/20 release hydroxyzine HCl 50 mg tablet 50 mg PO BEDTIME 01/08/20 03/05/20 infusion set for insulin pump #2 ea 01/08/20 03/03/20 multivitamin 1 cap PO DAILY 01/08/20 03/05/20 topiramate 100 mg tablet 100 mg PO BEDTIME 01/08/20 03/05/20 bupropion HCl [Wellbutrin XL] 150 mg PO DAILY 02/10/20 03/05/20 insulin lispro [Humalog U-100 0 unit SUBCUT DAILY PRN 02/10/20 03/05/20 Insulin] Previous Rx's Medication Instructions Recorded pantoprazole [Protonix] 40 mg PO BID #60 tab 01/30/20 sucralfate [Carafate] 10 ml PO QID 30 Days #1200 ml 01/30/20 DS: Summary Time Spent with Patient Time attestation: Total time spent providing and/or coordinating discharge services: Physical Exam Vital Signs: Vital Signs: Last Vital Signs Temp 97.7 F 01/29/20 15:20 Pulse 72 01/29/20 15:20 Resp 18 01/29/20 15:20 BP 119/61 01/29/20 15:20 Pulse Ox 97 01/29/20 15:20 Body Mass Index 27.4 DS: Data Data Completed and Pending Completed studies during hospitalization [Text1]: Pending at discharge 01/29/20 12:45 Surgical [PTH] Routine Procedures Excision of Esophagogastric Junction, Via Natural or Artificial Opening Endoscopic, Diagnostic (02/10/20) Excision of Jejunum, Via Natural or Artificial Opening Endoscopic, Diagnostic (01/28/20) Excision of Lower Esophagus, Via Natural or Artificial Opening Endoscopic, Diagnostic (02/10/20) Labs on day of discharge: 01/28/20 18:07 IV insert/maintain .Now 01/28/20 18:08 CT abdomen pelvis w con Stat 01/28/20 18:09 Morphine Sulfate 4 mg IVPUSH ONCE ONE ondansetron HCL [Zofran] 4 mg IVPUSH ONCE ONE 01/28/20 18:15 0.9 % Sodium Chloride [Ns] 1,000 ml IVCONT 999 mls/hr 01/28/20 19:10 Acetone, serum QL Stat Basic Metabolic Panel Stat Calcium Stat Complete Blood Count Auto Diff Stat Lactic Acid Stat Lipase Stat Liver Panel Stat Magnesium Stat 01/28/20 20:09 Morphine Sulfate 4 mg IVPUSH ONCE ONE 01/28/20 21:40 ondansetron HCL [Zofran] 4 mg IVPUSH ONCE ONE 01/28/20 21:45 0.9 % Sodium Chloride [Ns] 1,000 ml IVCONT 999 mls/hr 01/28/20 22:04 Glucose, Whole Blood Routine 01/28/20 22:07 Glucose, blood poc .Now 01/28/20 22:25 SARS COV2 PCR INHOUSE Stat 01/28/20 22:35 Intake and Output Q4HR Code Status Routine 01/28/20 22:39 Compression Therapy QSHIFT Up ad inga .Continous ondansetron HCL [Zofran] 4 mg IVPUSH Q4H PRN 01/28/20 22:45 Lactated Ringers [Lr] 1,000 ml IVCONT 150 mls/hr 01/28/20 22:52 Glucose, blood poc QIDACHS 01/28/20 22:58 Prochlorperazine Edisylate [Compazine] 10 mg IVPUSH ONCE ONE 01/28/20 23:00 Acetaminophen [Ofirmev] 1,000 mg in 100 ml IV Q6H Pantoprazole Sodium [Protonix] 40 mg IVPUSH BID 01/28/20 23:55 Lactic Acid Stat 01/29/20 00:00 0.9 % Sodium Chloride Flush [NS Flush] 3 ml IVFLUSH QSHIFT 0.9 % Sodium Chloride Flush [NS Flush] 3 ml IVFLUSH QSHIFT Piperacillin Sodium/Tazobactam [Zosyn] 3.375 gm 0.9 % Sodium Chloride [Ns] 50 ml IV Q6H 01/29/20 00:41 Piperacillin Sodium/Tazobactam [Zosyn] 3.375 gm IV .STK-MED ONE 01/29/20 01:09 Glucose, Whole Blood Routine 01/29/20 05:02 Piperacillin Sodium/Tazobactam [Zosyn] 3.375 gm IV .STK-MED ONE 01/29/20 06:25 Basic Metabolic Panel DAILY@0600 Complete Blood Count Auto Diff DAILY@0600 01/29/20 07:47 Glucose, Whole Blood Routine 01/29/20 08:05 Thiamine HCL 200 mg .ROUTE .STK-MED ONE 01/29/20 09:00 Thiamine HCL 100 mg MVI, Adult [Infuvite Adult] 10 ml Folic Acid 1 mg 0.9 % Sodium Chloride [Ns] 1,000 ml IVPUSH DAILY 01/29/20 11:35 Lactated Ringers [Lr] 1,000 ml in 1,000 ml IVCONT 20 mls/hr 01/29/20 11:39 Glucose, Whole Blood Routine 01/29/20 12:03 fentaNYL citrate/PF [Sublimaze] 50 mcg .ROUTE .STK-MED ONE 01/29/20 12:04 Lidocaine HCl 2 % MPF [Xylocaine 2 % MPF] 5 ml .ROUTE .STK-MED ONE propofoL [Diprivan] 200 mg IVPUSH .STK-MED ONE 01/29/20 12:22 Transfer Order Routine 01/29/20 12:45 Surgical [PTH] Routine 01/29/20 12:57 Sucralfate Oral Suspension [Carafate Oral Suspension] 1 gm PO QID ONE 01/29/20 13:00 Transfer Order Routine 01/29/20 13:35 Piperacillin Sodium/Tazobactam [Zosyn] 3.375 gm IV .STK-MED ONE 01/29/20 Lunch Clear Liquid Diet 01/29/20 15:56 Glucose, Whole Blood Routine 01/29/20 17:00 Sucralfate Oral Suspension [Carafate Oral Suspension] 1 gm PO QID 01/29/20 20:01 Piperacillin Sodium/Tazobactam [Zosyn] 3.375 gm IV .STK-MED ONE 01/29/20 21:01 Glucose, Whole Blood Routine 01/30/20 01:12 Piperacillin Sodium/Tazobactam [Zosyn] 3.375 gm IV .STK-MED ONE 01/30/20 05:52 Piperacillin Sodium/Tazobactam [Zosyn] 3.375 gm IV .STK-MED ONE 01/30/20 07:26 Glucose, Whole Blood Routine Laboratory Last Values WBC 9.8 X10*3/uL (4.8-10.8) 01/29/20 06:25 RBC 3.30 X10*6/uL (4.20-5.50) L 01/29/20 06:25 Hgb 9.7 g/dl (12.0-16.0) L 01/29/20 06:25 Hct 29.9 % (37-47) L 01/29/20 06:25 MCV 90.6 fL (80-98) 01/29/20 06:25 MCH 29.4 pg (27.0-33.0) 01/29/20 06:25 MCHC 32.4 g/dl (31.0-35.0) 01/29/20 06:25 RDW 13.2 % (11.0-16.0) 01/29/20 06:25 Plt Count 288 X10*3/uL (160-400) 01/29/20 06:25 MPV 10.8 fL (9.4-12.3) 01/29/20 06:25 Immature Gran % (Auto) 0.5 % (0.0-0.4) H 01/29/20 06:25 Neut % (Auto) 66.3 % (45-73) 01/29/20 06:25 Lymph % (Auto) 23.9 % (20-40) 01/29/20 06:25 Cascade % (Auto) 7.3 % (2-11) 01/29/20 06:25 Eos % (Auto) 1.6 % (0-4) 01/29/20 06:25 Baso % (Auto) 0.4 % (0-2) 01/29/20 06:25 Lymph # (Auto) 2.4 X10*3/uL (1.2-4.9) 01/29/20 06:25 Cascade # (Auto) 0.7 X10*3/uL (0.1-1.2) 01/29/20 06:25 Eos # (Auto) 0.2 X10*3/uL (0.0-0.4) 01/29/20 06:25 Baso # (Auto) 0.0 X10*3/uL (0.0-0.2) 01/29/20 06:25 Abs Immat Gran (auto) 0.05 X10*3/uL (0.00-0.03) H 01/29/20 06:25 Absolute Neuts (auto) 6.5 X10*3/uL (2.0-8.3) 01/29/20 06:25 Absolute Nucleated RBC 0.000 X10*3/uL (0.0-0.012) 01/29/20 06:25 Nucleated RBC % (auto) 0.0 /100WBC (0.0-0.2) 01/29/20 06:25 Sodium 138 mmol/L (135-145) 01/29/20 06:25 Potassium 3.9 mmol/l (3.3-5.1) 01/29/20 06:25 Chloride 108 mmol/L (96-108) 01/29/20 06:25 Carbon Dioxide 21 mmol/L (22-29) L 01/29/20 06:25 Anion Gap 13 (12-20) 01/29/20 06:25 BUN 13 mg/dL (9-16) 01/29/20 06:25 Creatinine 0.72 mg/dL (0.5-1.4) 01/29/20 06:25 Estim Creat Clear Calc 97.3 01/29/20 06:25 Estimated GFR > 60 01/29/20 06:25 POC Glucose 80 mg/dL (60-115) 01/30/20 07:26 Random Glucose 155 mg/dL (60-115) H D 01/29/20 06:25 Lactic Acid 0.7 mmol/L (0.5-2.0) 01/28/20 23:55 Calcium 7.9 mg/dL (8.4-10.2) L 01/29/20 06:25 Magnesium 1.9 mg/dL (1.6-2.6) 01/28/20 19:10 Total Bilirubin 0.3 mg/dL (0.0-1.0) 01/28/20 19:10 Direct Bilirubin 0.2 mg/dL (0.0-0.5) 01/28/20 19:10 AST 13 U/L (5-31) 01/28/20 19:10 ALT 11 U/L (0-31) 01/28/20 19:10 Alkaline Phosphatase 118 U/L (39-117) H 01/28/20 19:10 Total Protein 6.0 g/dL (6.5-8.0) L 01/28/20 19:10 Albumin 3.2 g/dL (3.5-5.0) L 01/28/20 19:10 Lipase 8 U/L (8-78) 01/28/20 19:10 Urine Color YELLOW 01/28/20 20:17 Urine Appearance CLEAR 01/28/20 20:17 Urine pH 6.0 (5.0-8.0) 01/28/20 20:17 Ur Specific Eleva >= 1.030 (1.005-1.025) H 01/28/20 20:17 Urine Protein 1+ MG/DL (NEG-TRACE) H 01/28/20 20:17 Urine Glucose (UA) 250 MG/DL (NEG) H 01/28/20 20:17 Urine Ketones >=80 MG/DL (NEG) 01/28/20 20:17 Urine Blood NEG (NEG) 01/28/20 20:17 Urine Nitrite NEG (NEG) 01/28/20 20:17 Ur Leukocyte Esterase NEG (NEG) 01/28/20 20:17 Urine RBC 0 /HPF (0) 01/28/20 20:17 Urine WBC 0-2 /HPF (0-4) 01/28/20 20:17 Ur Squamous Epith Cells 1+ /LPF 01/28/20 20:17 Urine Bacteria 1+ /LPF 01/28/20 20:17 Acetone, Qual Small (Negative) H 01/28/20 19:10 Coronavirus (PCR) NEGATIVE (Negative) 01/28/20 22:25 Discharge Plan Discharge Patient Disposition: Home, Self-Care Referrals: Vitaliy Godfrey MD [Primary Care Provider] - Discharge Medications: New pantoprazole [Protonix] 40 mg tablet,delayed release (DR/EC) 40 mg PO BID Qty: 60 RF: 8 Continued sucralfate [Carafate] 100 mg/mL suspension 10 ml PO QID 30 Days Qty: 1200 RF: 4 topiramate [Topamax] 100 mg tablet 100 mg PO BEDTIME RF: 0 (DME) infusion set for insulin pump Infusion Set See Rx Instructions .ROUTE .MEDSUPPLY Qty: 2 RF: 0 hydroxyzine HCl 50 mg tablet 50 mg PO BEDTIME RF: 0 Hold Instructions: hold duloxetine [Cymbalta] 30 mg capsule,delayed release(DR/EC) 30 mg PO BID RF: 0 multivitamin Capsule 1 cap PO DAILY RF: 0 Discontinued Adult Probiotic 3 billion cell capsule 3,000 mmu cells PO DAILY RF: 0 No Action bupropion HCl [Wellbutrin XL] 150 mg Tablet Extended Release 24 Hr 150 mg PO DAILY RF: 0 insulin lispro [Humalog U-100 Insulin] 100 unit/mL Solution 0 unit SUBCUT DAILY PRN (Reason: INSULIN PUMP REFILL) RF: 0 Discharge Orders: Discharge Order (Routine); Ordered 01/30/20 Ordered By: Audelia Castaneda Diet: other Activity on Discharge: As tolerated Discharge Date/Time: 01/30/20 10:30 Activity Restrictions/Additional Instructions: patient should consume at least 60 oz of liquids daily. She will drink either bone broth, chicken broth, be crossed, vegetable broth with the addition of collagen to equal a total of 80 g of protein daily. Patient was told to avoid any citrus fruits, tomato based products, caffeine, chocolate to avoid increased pain with consumption. Patient will continue taking Carafate 4 times daily and Protonix 40 mg b.i.d.. She will call the office with any questions or concerns crit. We will follow up with her in 2 weeks via [employer]. The plan will be to perform a repeat endoscopy in 2-4 weeks. Discharge Summary Date of Service: 01/30/20 Admitting Diagnosis: Discharge Diagnosis: marginal ulcers s/p LRYGB conversion Procedure Performed: EGD Discharge Medications: 1. sucralfate 2. pantoprazole Discharge Instructions: The patient should consume at least 60 oz of liquids daily. She will drink either bone broth, chicken broth, be crossed, vegetable broth with the addition of collagen to equal a total of 80 g of protein daily. Patient was told to avoid any citrus fruits, tomato based products, caffeine, chocolate to avoid increased pain with consumption. Patient will continue taking Carafate 4 times daily and Protonix 40 mg b.i.d.. She will call the office with any questions or concerns. We will follow up with her in 2 weeks via [employer]. The plan will be to perform a repeat endoscopy in 2-4 weeks. Hospital Course: The patient was admitted after presenting to the ED with complaints of abdominal pain/diarrhea/nausea/dark urine/dry heaves/and inability to tolerate po liquids. She is 9 weeks s/p conversion from a sleeve gastrectomy to a gastric bypass for severe GERD. CT showed edematous bowel, and no evidence of any bowel obstruction. Pain improved with hydration. EGD done yesterday showed marginal ulcers along with evidence of healing ulcers. She was able to tolerate po liquids today 01/30/20. Sent home with above instructions. Will follow up with Dr. Castaneda in 2 weeks time. Discharge Disposition: Home. Visit Report Forms: Patient Portal Discharge page Care Plan Goals: Improve ulcers with the administration of Carafate and Protonix Health Concerns: marginal ulcer Plan of Treatment: Carafate 1 g liquid 4 times daily and Protonix 40 mg b.i.d. with a plan for repeat endoscopy in 2-4weeks
== END 2020-01-30 10:30 | disposition home or self-care (01) | DRG 241 ==
LOC: HO.ED 22:10 → HO.S3 23:08
PROVIDERS: Physician Assistant; Admitting Provider Internal Medicine; Emergency Provider Internal Medicine; PCP Internal Medicine; Visit Provider Surgery
PROC: 0DJ08ZZ Inspection of Upper Intestinal Tract, Via Natural or Artificial Opening Endoscopic (ICD-10-PCS; CPT 43235; principal; 2020-01-29 13:30)
DX: K28.9 Gastrojejunal ulcer, unspecified as acute or chronic, without hemorrhage or perforation (principal); Z20.828 Contact with and (suspected) exposure to other viral communicable diseases; Z87.891 Personal history of nicotine dependence; Z79.4 Long term (current) use of insulin; Z96.41 Presence of insulin pump (external) (internal); Z88.2 Allergy status to sulfonamides; Z98.84 Bariatric surgery status; Z88.5 Allergy status to narcotic agent; Z79.899 Other long term (current) drug therapy
CPT/HCPCS: 43239; 36415; 74177; 80048; 80076; 81001; 82009; 82310; 82947; 83605; 83690; 83735; 85025; 87635; 88305; 96361; 96374; 96375; 96376; 99218; 99219; 99225; 99284; 99285; J0131; J2270; J2405; J2543; J3010; J3411

== ENCOUNTER 2020-02-10 12:32 | Inpatient (IN) | payer OTHER, SELFPAY ==
--- NOTE | 2020-02-10 | CT_ITS ---
EXAMINATION: CT ABDOMEN AND PELVIS WITH CONTRAST CLINICAL INFORMATION: Abdominal pain and diarrhea. Post gastric bypass. COMPARISON: Previous CT scans of the abdomen and pelvis 01/28/2020 TECHNIQUE: Multidetector volumetric images were obtained from the superior aspect of the liver through the pubic symphysis following administration 100 mL of Omnipaque 350 intravenous contrast. Yes Oral contrast: No This CT examination was performed using dose optimization techniques as appropriate, variously including the following: *Automated exposure control *Adjustment of mA and/or kV according to patient size (this includes techniques or standardized protocols for targeted exams where dose is matched to indication/reason for exam; i.e. extremities or head) *Use of iterative reconstruction technique DLP: 369 mGy-cm FINDINGS: LUNG BASES: The visualized lung bases are unremarkable. LIVER, GALLBLADDER, AND BILIARY TREE: The liver is normal in size, shape, and attenuation. No focal hepatic lesion or biliary ductal dilatation is present. The gallbladder is unremarkable with no evidence of radiopaque gallstones, gallbladder wall thickening, or obvious pericholecystic inflammatory changes. PANCREAS: There is a 1.1 cm cyst in the tail the pancreas near the splenic hilum. Axial image 20 series 3 and coronal reconstructed image 57 SPLEEN: Unremarkable. ADRENAL GLANDS: Unremarkable. KIDNEYS AND URETERS: The kidneys are normal in size, shape, and attenuation. No hydronephrosis, hydroureter, or calculi seen. No perinephric stranding. BLADDER: Unremarkable. GASTROINTESTINAL TRACT: There are postsurgical changes following gastric bypass. The edema of the efferent limb seen on 01/28/2020 exam is no longer seen. There are no dilated loops of bowel to suggest obstruction. Small and large bowel is otherwise unremarkable. The surgical staple line extends above the diaphragm questionable for an esophageal hernia. No fluid collection extravasation of oral contrast or extraluminal air is seen. The appendix is unremarkable. ABDOMINAL WALL: No significant hernia is appreciated. LYMPH NODES: There are small, small bowel mesentery lymph nodes. No enlarged lymph nodes are seen. VASCULAR: There is evidence of atherosclerotic disease. PELVIC VISCERA: The uterus appears to have been removed. No pelvic mass is seen. OSSEOUS STRUCTURES: Unremarkable. CT/CT abdomen pelvis w con IMPRESSION: Stable postsurgical changes from gastric bypass. Edema of the efferent limb seen on January 2020 CT scan is no longer seen. Surgical staple line extends above the diaphragm questionable for small esophageal hernia. Shotty small bowel mesentery lymphadenopathy. 1.1 cm cyst in the tail of the pancreas.
[2020-02-10 13:07] LABS: Glucose, Whole Blood 161 mg/dL (60-115)
[2020-02-10 13:15] VITALS: BP 131/72; PULSE 73; RESP 16; TEMP 36.6; O2SAT 100
[2020-02-10] MEDS: Subcutaneous Insulin Pump 1 EACH SUBCUT ×2 (14:43→16:38)
[2020-02-10 14:53] LABS: MANUAL DIFF FLAG NO
[2020-02-10 14:55] LABS: Basophils Percent Auto 0.4 % (0-2); Eosinophils Absolute Auto 0.1 X10*3/uL (0.0-0.4); Eosinophils Percent Auto 1.7 % (0-4); Hematocrit 33.1 % (37-47); Hemoglobin 10.5 g/dl (12.0-16.0); Imm Gran Abs Auto 0.03 X10*3/uL (0.00-0.03); Imm Gran Pct Auto 0.4 % (0.0-0.4); Lymphocytes Absolute Auto 2.2 X10*3/uL (1.2-4.9); Lymphocytes Percent Auto 30.4 % (20-40); Mean Corpuscular HGB Conc 31.7 g/dl (31.0-35.0); Mean Corpuscular Hemoglobin 28.7 pg (27.0-33.0); Mean Corpuscular Volume 90.4 fL (80-98); Mean Platelet Volume 10.8 fL (9.4-12.3); Monocytes Absolute Auto 0.5 X10*3/uL (0.1-1.2); Monocytes Percent Auto 6.8 % (2-11); Neutrophils Absolute Auto 4.3 X10*3/uL (2.0-8.3); Neutrophils Percent Auto 60.3 % (45-73); Platelet Count 370 X10*3/uL (160-400); Red Blood Count 3.66 X10*6/uL (4.20-5.50); Red Cell Distribution Width 14.5 % (11.0-16.0); White Blood Count 7.1 X10*3/uL (4.8-10.8)
[2020-02-10] MEDS: Lactated Ringers 1,000 ML 125 ML IVCONT (15:09)
[2020-02-10] MEDS: ondansetron HCL 4 MG/2 ML VIAL IVPUSH (15:09)
[2020-02-10 15:14] VITALS: BP 149/83; PULSE 81; RESP 18; TEMP 36.6; O2SAT 100
[2020-02-10 15:19] LABS: Amylase 31 U/L (28-100); Anion Gap 13 (12-20); Blood Urea Nitrogen 24 mg/dL (9-16); Calcium 8.2 mg/dL (8.4-10.2); Carbon Dioxide 18 mmol/L (22-29); Chloride 110 mmol/L (96-108); Estimated Glomerular Filt Rate > 60; Glucose Random 127 mg/dL (60-115); Lipase 7 U/L (8-78); Magnesium 2.3 mg/dL (1.6-2.6); Phosphorus 3.4 mg/dL (2.7-4.5); Potassium 3.7 mmol/l (3.3-5.1); Sodium 137 mmol/L (135-145)
[2020-02-10] MEDS: iohexoL 350 MG/ML 100 ML INFUS..BTL IV (16:01)
[2020-02-10] MEDS: Barium Sulfate Oral (Berry) 450 ML ORAL.SUSP PO (16:04)
[2020-02-10 17:22] LABS: Glucose, Whole Blood 83 mg/dL (60-115)
--- NOTE | 2020-02-10 19:23 | P.HPGS_ITS ---
History of Present Illness History of Present Illness Chief complaint: abd pain, diarrhea s/p gbp Narrative: Araceli Vides: 44yo F who is 2.5 mo s/p conversion of LSG (originally done in [address] Castaneda at [facility]) LRYGB done November 2019 due to for severe GERD. She as IDDM with insulin pump and hx of HTN. Since her conversion to bypass, she has had loose BMs. But 1.5 weeks ago was admitted for pain/nausea. EGD showed large marginal ulcer. Been on broth w/ collagen protein (72g/day), electrolyte water (90 oz/day), and few soft foods like rice or banana. Diarrhea is much worse. Some anal leakage noted on clothes. Otherwise has liquid BM every time she goes to the bathroom, up to 10x/day, and 5+ times a night. Thought it was dumping, but happening all night too even when not eating. Going through a bottle of immodium every 2 days (helps a little). No cramping with BMs. No nausea/vomiting/abdominal pain/fever/chills/SOB/chest pain. Notes yellow/orange oiliness on BMs (no hx of gall bladder removal). Patient discussed options with Dr Loyola (covering attending) who recommended admission for work up and control of Type 1 DM. 01/29/20 EGD: large marginal ulcer on the jejunal surface of the gastrojejunal anastamosis, and skip ulceration in the proximal Becki limb and distal esophagus. labs normal except slight dilutional anemia and low calcium. 01/28/20 Went to ED with ? LUQ pain and loose stool, nausea/dry heaves, CT showed edematous bowel, no BM in past 3 days ? admitted. 01/27/20 Called office, given carafate for presumed gastritis 01/16/20 diarrhea had resolved, had f/u with endo, A/P: continue 3 shakes, phase 4 food, hydration 01/08/20 pt noted few episodes of black stools and abdominal pain over the past week, then stools changed to orange/yellow, A/P: ?gastritis w/ mild blood loss, no evidence of ongoing HI blood loss 11/26/19 conversion to [address]YGB with Dr Castaneda. Review of Systems Review of Systems: Yes all other systems are reviewed and are negative PMFSH Past Medical History Medical History (Updated 02/10/20 @ 19:41 by Annalee Boykin PA-C) Chronic migraine w/o aura w/o status migrainosus, not intractable Hyperglycemia Hypertension Insulin dependent diabetes mellitus Malabsorption due to intolerance, not elsewhere classified Overweight (BMI 25.0-29.9) Family History Family History Father Type 2 diabetes mellitus HTN (hypertension) Mother Obesity History of breast cancer Daughter No problems noted. Brother No problems noted. Son No problems noted. Surgical History Surgical History (Updated 02/10/20 @ 19:31 by Annalee Boykin PA-C) History of History of repair of hiatal hernia History of Becki-en-Y gastric bypass History of total abdominal hysterectomy S/P laparoscopic sleeve gastrectomy Social History Social History Household Members: Unknown / Unable to assess Housing: House Alcohol intake: current Smoking Status: Former smoker Substance Use Type: Unknown Advance Directives: No Advance Directives Information Provided: Yes service: No Current occupational status: employed Meds Allergies Allergy/AdvReac Type Severity Reaction Status Date / Time codeine [Codeine] Allergy Unknown N/V, Verified 01/29/20 11:32 vomiting Sulfa (Sulfonamide Allergy Unknown RASH Verified 01/29/20 11:32 Antibiotics) [SULFA (SULFONAMIDE ANTIBIOTICS)] Home Medications Medication Instructions Recorded Confirmed Type calcium carbonate 500 mg calcium 500 mg PO BID 01/08/20 02/10/20 History (1,250 mg) tablet duloxetine 30 mg capsule,delayed 30 mg PO BID 01/08/20 02/10/20 History release hydroxyzine HCl 50 mg tablet 50 mg PO BEDTIME 01/08/20 02/10/20 History infusion set for insulin pump #2 ea 01/08/20 01/16/20 History multivitamin 1 cap PO DAILY 01/08/20 02/10/20 History topiramate 100 mg tablet 100 mg PO BEDTIME 01/08/20 02/10/20 History bupropion HCl [Wellbutrin XL] 150 mg PO DAILY 02/10/20 02/10/20 History insulin lispro [Humalog U-100 0 unit SUBCUT DAILY PRN 02/10/20 02/10/20 History Insulin] Physical Exam Vital Signs: Vital Signs: Last Vital Signs Temp 97.9 F 02/10/20 15:14 Pulse 81 02/10/20 15:14 Resp 18 02/10/20 15:14 BP 149/83 H 02/10/20 15:14 Pulse Ox 100 02/10/20 15:14 Results Results Labs: Short CBC 02/10/20 Range/Units 14:40 WBC 7.1 (4.8-10.8) X10*3/uL Hgb 10.5 L (12.0-16.0) g/dl Hct 33.1 L (37-47) % Plt Count 370 D (160-400) X10*3/uL BMP 02/10/20 14:40 Sodium 137 Potassium 3.7 Chloride 110 H Carbon Dioxide 18 L BUN 24 H D Creatinine 0.80 Calcium 8[address] scan report/results: report reviewed (No further bowel edema, s/p GBP - appears to have hiatal hernia) Assessment and Plan (1) Marginal ulcers: Problem details: EGD to re assess ulcers and esophagitis, NPO, IVF, PPI Status: Acute (2) History of Becki-en-Y gastric bypass: Problem details: laparoscopic conversion of sleeve gastrectomy to becki-en-y gastric bypass 11/26/2019 Status: Acute (3) Diarrhea: Problem details: Stool cultures have been ordered, normal WBC count. Diarrhea may represent chronic GII condition. Status: Acute (4) Insulin dependent diabetes mellitus: Problem details: Patient has insulin pump - humalog, uses ~13 U in 24 hrs. Will continue to use insulin pump to keep BS between 100 and 200. Status: Acute Pt will be kept NPO until EGD to assess marginal ulcer and esophagitis to be performed by Dr Loyola. IVF hydration, PPI, stool cultures orderd.
--- NOTE | 2020-02-10 19:34 | P.HPGS_ITS ---
History of Present Illness History of Present Illness Chief complaint: abd pain, diarrhea s/p gbp Narrative: Araceli Vides is a 44 year old female who is admitted for persistent diarrhea up to 10-12 watery or loose bowel movements per day since her previous admission at the end of December. She does report that she has loose bowel movements prior to that as well and reviewing her past history she did have complaints of diarrhea since 2018. Denies any blood in the stool, fever, nausea. vomiting or abdominal pain. The diarrhea has been persistent despite use of Imodium. The patient has a history of sleeve gastrectomy and anterior hiatal hernia repair on 10/26/2016 at [facility]. Pathology report revealed a 16cm x 5.3cm x 4.5cm specimen. The patient continued to have persistent GERD, several episodes of vomiting and dehydration as well as episode of GI bleed in 04/2017. EGD revealed erosive esophagitis with a recurrent 5cm hiatal hernia. The patient underwent a redo-hiatal hernia repair with gastropexy on 05/10/2017. In both operative reports and anterior crural repair was reported but it is unclear whether circumferential dissection of the esophagus was performed. Lost 71 lbs until last follow up at [facility] prior to conversion to LRYGB on 11/26/19. Continued to have GERD requiring Protonix twice per day. Initially this dose controlled symptoms but since 12/2018 the GERD was not controlled and required admission of GI bleed again. The patient continued to have persistent GERD until her revision to LRYGB. Prior to this operation, the patient was not studied with an UGI or EGD. Operative report of the conversion to LRYGB states that there was no hernia. A transverse division of the sleeve was made to create the pouch. Patient was re-admitted for abdominal pain on 01/27/[address] abd/pelvis showed thickening of the Becki limb. Upon my review there was also a moderate size hiatal hernia with the staple line appearing well into the mediastinum. This was confirmed with yesterday's CT. EGD was performed on 01/28/20 which showed significant erosive esophagitis (biopsies were not obtained), an anastomotic ulcer as well as several supervicial ulcers at the Becki limb which were biopsied revealing enteriris and ulcer. Gastric biopsies were not obtained for H. pylori. H. pylori was not performed preoperatively and not tested at the time of the sleeve gastrectomy. Review of Systems Review of Systems: Yes all other systems are reviewed and are negative Gastrointestinal: Gastrointestinal: Reports heartburn, Reports fecal incontinence, Reports diarrhea, Reports loose stools and Reports nausea PMFSH Past Medical History Medical History (Updated 02/10/20 @ 20:17 by Meet Loyola MD) Chronic migraine w/o aura w/o status migrainosus, not intractable GERD (gastroesophageal reflux disease) Hiatal hernia Hyperglycemia Hypertension Insulin dependent diabetes mellitus Malabsorption due to intolerance, not elsewhere classified Overweight (BMI 25.0-29.9) Family History Family History Father Type 2 diabetes mellitus HTN (hypertension) Mother Obesity History of breast cancer Daughter No problems noted. Brother No problems noted. Son No problems noted. Surgical History Surgical History (Updated 02/10/20 @ 19:31 by Annalee Boykin PA-C) History of History of repair of hiatal hernia History of Becki-en-Y gastric bypass History of total abdominal hysterectomy S/P laparoscopic sleeve gastrectomy Social History Social History Household Members: Unknown / Unable to assess Housing: House Alcohol intake: current Smoking Status: Former smoker Substance Use Type: Unknown Advance Directives: No Advance Directives Information Provided: Yes service: No Current occupational status: employed Meds Allergies Allergy/AdvReac Type Severity Reaction Status Date / Time codeine [Codeine] Allergy Unknown N/V, Verified 01/29/20 11:32 vomiting Sulfa (Sulfonamide Allergy Unknown RASH Verified 01/29/20 11:32 Antibiotics) [SULFA (SULFONAMIDE ANTIBIOTICS)] Home Medications Medication Instructions Recorded Confirmed Type calcium carbonate 500 mg calcium 500 mg PO BID 01/08/20 02/10/20 History (1,250 mg) tablet duloxetine 30 mg capsule,delayed 30 mg PO BID 01/08/20 02/10/20 History release hydroxyzine HCl 50 mg tablet 50 mg PO BEDTIME 01/08/20 02/10/20 History infusion set for insulin pump #2 ea 01/08/20 01/16/20 History multivitamin 1 cap PO DAILY 01/08/20 02/10/20 History topiramate 100 mg tablet 100 mg PO BEDTIME 01/08/20 02/10/20 History bupropion HCl [Wellbutrin XL] 150 mg PO DAILY 02/10/20 02/10/20 History insulin lispro [Humalog U-100 0 unit SUBCUT DAILY PRN 02/10/20 02/10/20 History Insulin] Physical Exam Vital Signs: Vital Signs: Last Vital Signs Temp 97.9 F 02/10/20 15:14 Pulse 81 02/10/20 15:14 Resp 18 02/10/20 15:14 BP 149/83 H 02/10/20 15:14 Pulse Ox 100 02/10/20 15:14 Resp: Effort & Inspection: normal respiratory effort Cardio: Jugular venous distension: no JVD Rhythm: regular rhythm GI: Inspection: Yes normal to inspection and Yes incision (well healed) Extrem: General: Yes normal to inspection (no calf tenderness) Left upper extremity: normal to inspection Right lower extremity: normal to inspection (no calf tenderness) Left lower extremity: normal to inspection (no calf tenderness) Results Results Labs: Short CBC 02/10/20 Range/Units 14:40 WBC 7.1 (4.8-10.8) X10*3/uL Hgb 10.5 L (12.0-16.0) g/dl Hct 33.1 L (37-47) % Plt Count 370 D (160-400) X10*3/uL BMP 02/10/20 14:40 Sodium 137 Potassium 3.7 Chloride 110 H Carbon Dioxide 18 L BUN 24 H D Creatinine 0.80 Calcium 8.2 L Assessment and Plan (1) Marginal ulcers: Problem details: EGD to re assess ulcers and esophagitis, NPO, IVF, PPI Status: Acute (2) History of Becki-en-Y gastric bypass: Problem details: laparoscopic conversion of sleeve gastrectomy to becki-en-y gastric bypass 11/26/2019 Status: Acute (3) Diarrhea: Problem details: Stool cultures have been ordered, normal WBC count. 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 If stool cultures are negative this could be diet-related. If persists, a GI consult will be obtained for additional feedback. Status: Acute (4) Insulin dependent diabetes mellitus: Problem details: Patient has insulin pump - humalog, uses ~13 U in 24 hrs. Will continue to use insulin pump to keep BS between 100 and 200. Check Hba1c tomorrow Status: Acute (5) Malabsorption due to intolerance, not elsewhere classified: Status: Acute (6) Overweight (BMI 25.0-29.9): Status: Acute (7) Hiatal hernia: Status: Acute 1) UGI tomorrow to assess GERD and hiatal hernia seen on CT (8) GERD (gastroesophageal reflux disease): Problem details: EGD to assess with biopsies of esophagus and gastric pouch planned All plans have been discussed with the patient who is in agreement. Status: Acute (9) Anemia: Status: Acute EGD
[2020-02-10 19:52] VITALS: BP 132/72; PULSE 72; RESP 17; TEMP 36.8; O2SAT 100
[2020-02-10 20:43] LABS: C Reactive Protein 0.32 mg/dL (< or = 0.50)
[2020-02-10] MEDS: Pantoprazole Sodium 40 MG/10 ML VIAL IVPUSH (20:49)
[2020-02-10 21:19] LABS: Glucose, Whole Blood 85 mg/dL (60-115)
[2020-02-11] VITALS (7 sets, daily range): BP systolic 116–143; BP diastolic 68–78; PULSE 62–72; RESP 14–19; TEMP 35.9–37.1; O2SAT 96–99
[2020-02-11 00:52] LABS: Glucose, Whole Blood 208 mg/dL (60-115)
[2020-02-11] MEDS: Dextrose 5 % and Lactated Ring 1,000 ML 125 ML IVCONT ×4 (01:06→20:30)
[2020-02-11] MEDS: ondansetron HCL 4 MG/2 ML VIAL IVPUSH ×4 (03:11→22:00)
[2020-02-11] MEDS: Subcutaneous Insulin Pump 1 EACH SUBCUT ×4 (07:33→21:15)
[2020-02-11 07:42] LABS: Estimated Average Glucose 128 mg/dL; Hemoglobin A1c % 6.1 %
--- NOTE | 2020-02-11 07:42 | PC.NURSE ---
pt around 11 pm notified us her senspr glucose was 65 and checked by glucometer 85 she felt slightly lightheaded JUSTINA Boykin was notified and fluids were changed to D5LR same rate 125
[2020-02-11 07:59] LABS: Glucose, Whole Blood 169 mg/dL (60-115)
--- NOTE | 2020-02-11 08:03 | FL_ITS ---
EXAMINATION: XR GI SERIES CLINICAL INFORMATION: Severe esophagitis. GERD, recurrent hiatal hernia COMPARISON: CT abdomen 02/10/2020 TECHNIQUE: Upper GI with air FINDINGS: Postsurgical changes status post gastric bypass surgery. Normal swallowing reflex. Esophagus demonstrates normal distention and motility. No mass or mucosal lesions are seen in the esophagus. The barium demonstrates prompt passage through the residual stomach into the efferent limb/small bowel without evidence of obstruction. Suboptimal distention of the residual stomach, without gross mass or mucosal lesion seen. No significant hiatal hernia is appreciated. No gastroesophageal reflux is demonstrated during the procedure. FLUOROSCOPY TIME: 1.9 minutes DOSE AREA PRODUCT: 22.6 uGy-m2 (microgray-meter squared) FL/FL upper GI series IMPRESSION: 1. Postsurgical changes status post gastric bypass surgery. Prompt passage of the barium into the efferent limb without evidence of obstruction. 2. No discrete mass, lesion, or ulceration is identified. Further evaluation with endoscopy as clinically warranted. 3. No significant hiatal hernia is seen. No gastroesophageal reflux was visualized during the procedure.
[2020-02-11] MEDS: Pantoprazole Sodium 40 MG/10 ML VIAL IVPUSH ×2 (08:43→21:14)
[2020-02-11 11:56] LABS: Glucose, Whole Blood 172 mg/dL (60-115)
[2020-02-11] MEDS: HYDROmorphone HCl 0.5 MG/0.5 ML SYRINGE 0.25 MG IVPUSH ×2 (13:30→17:31)
--- NOTE | 2020-02-11 13:52 | MHC.CM.PN ---
NURSE BUTTER GRADER NOTE ELECTRONIC MEDICAL RECORD REVIEWED ALONG WITH CASE DISCUSSED WITH STAFF NURSE AND MET WITH PATIENT . PATIENT REPORTED TO ME THAT SHE WILL BE HAVING A SCOPE TOMORROW BY DR MCALLISTER AND DEPENDING ON PATIENT RESULTS HE WILL DETERMINE WHETHER SHE NEEDS PIC LINE AND IV FLUIDS VS HOME WITH NO SERVICES SHE IS Active , independent in al adls and mobility , she works from home for the [employer] ( DISCUSED IF SHE GOES HOME NO SERVICES HER WILL PICK HER UP, VS IF NEEDED POSSIBLE PIC LINE AND IV FLUIDS . SHE ASKED THAT I START THE REFERRALS SOON iniated referrasl to the following [facility]na [facility] , [facility] and [facility] also iniated referral to [facility] for possible need for iv fluids
[2020-02-11 17:31] LABS: Glucose, Whole Blood 134 mg/dL (60-115)
[2020-02-11] MEDS: Metoclopramide HCl 10 MG/2 ML VIAL IVPUSH (19:25)
[2020-02-11 23:58] LABS: Glucose, Whole Blood 228 mg/dL (60-115)
[2020-02-12] VITALS (9 sets, daily range): BP systolic 99–161; BP diastolic 49–81; PULSE 65–73; RESP 16–19; TEMP 36.2–36.9; O2SAT 96–100; BMI 27.4
[2020-02-12] MEDS: ondansetron HCL 4 MG/2 ML VIAL IVPUSH ×3 (02:27→17:14)
[2020-02-12] MEDS: Dextrose 5 % and Lactated Ring 1,000 ML 125 ML IVCONT ×3 (04:35→21:34)
[2020-02-12 05:50] LABS: Glucose, Whole Blood 229 mg/dL (60-115)
--- NOTE | 2020-02-12 07:27 | P.CONAN_ITS ---
[facility] Past Medical History Medical History (Updated 02/10/20 @ 20:17 by Meet Loyola MD) Chronic migraine w/o aura w/o status migrainosus, not intractable GERD (gastroesophageal reflux disease) Hiatal hernia Hyperglycemia Hypertension Insulin dependent diabetes mellitus Malabsorption due to intolerance, not elsewhere classified Overweight (BMI 25.0-29.9) Family History Family History Father Type 2 diabetes mellitus HTN (hypertension) Mother Obesity History of breast cancer Daughter No problems noted. Brother No problems noted. Son No problems noted. Surgical History Surgical History (Updated 02/10/20 @ 19:31 by Annalee Boykin PA-C) History of History of repair of hiatal hernia History of Efra-en-Y gastric bypass History of total abdominal hysterectomy S/P laparoscopic sleeve gastrectomy Social History Social History Household Members: Unknown / Unable to assess Housing: House Alcohol intake: current Smoking Status: Never smoker Use of substances other than those prescribed or required for medical reasons: No Substance Use Type: Unknown Currently Displaying Signs/Symptoms of Drug Intoxication Withdrawal: No Advance Directives: No Advance Directives Information Provided: Yes Do you have thoughts of harming others: None Do you have a plan to hurt others: No Plan service: No Current occupational status: employed Meds Allergies Allergy/AdvReac Type Severity Reaction Status Date / Time codeine [Codeine] Allergy Unknown N/V, Verified 01/29/20 11:32 vomiting Sulfa (Sulfonamide Allergy Unknown RASH Verified 01/29/20 11:32 Antibiotics) [SULFA (SULFONAMIDE ANTIBIOTICS)] Home Medications Medication Instructions Recorded Confirmed Type calcium carbonate 500 mg calcium 500 mg PO BID 01/08/20 02/10/20 History (1,250 mg) tablet duloxetine 30 mg capsule,delayed 30 mg PO BID 01/08/20 02/10/20 History release hydroxyzine HCl 50 mg tablet 50 mg PO BEDTIME 01/08/20 02/10/20 History infusion set for insulin pump #2 ea 01/08/20 01/16/20 History multivitamin 1 cap PO DAILY 01/08/20 02/10/20 History topiramate 100 mg tablet 100 mg PO BEDTIME 01/08/20 02/10/20 History bupropion HCl [Wellbutrin XL] 150 mg PO DAILY 02/10/20 02/10/20 History insulin lispro [Humalog U-100 0 unit SUBCUT DAILY PRN 02/10/20 02/10/20 History Insulin] Exam Exam Date and Time: February 12, 2020726 Height,Weight and Vital Signs: Height 5 ft 4 in Weight 72.6 kg Last Vital Signs Temp 97.7 F 02/12/20 07:11 Pulse 70 02/12/20 07:11 Resp 16 02/12/20 07:11 BP 161/81 H 02/12/20 07:11 Pulse Ox 99 02/12/20 07:11 Pertinent Lab Results Pertinent Lab Results: Laboratory Tests 02/10/20 02/10/20 02/10/20 13:02 14:40 14:40 WBC 7.1 RBC 3.66 L Hgb 10.5 L Hct 33.1 L MCV 90.4 MCH 28.7 MCHC 31.7 RDW 14.5 Plt Count 370 D MPV 10.8 Immature Gran % (Auto) 0.4 Neut % (Auto) 60.3 Lymph % (Auto) 30.4 [place] % (Auto) 6.8 Eos % (Auto) 1.7 Baso % (Auto) 0.4 Lymph # (Auto) 2.2 [place] # (Auto) 0.5 Eos # (Auto) 0.1 Baso # (Auto) 0.0 Abs Immat Gran (auto) 0.03 Absolute Neuts (auto) 4.3 Absolute Nucleated RBC 0.000 Nucleated RBC % (auto) 0.0 Sodium 137 Potassium 3.7 Chloride 110 H Carbon Dioxide 18 L Anion Gap 13 BUN 24 H D Creatinine 0.80 Estim Creat Clear Calc TNP Estimated GFR > 60 POC Glucose 161 H Random Glucose 127 H Estimat Average Glucose Hemoglobin A1c % Calcium 8.2 L Phosphorus 3.4 Magnesium 2.3 C-Reactive Protein Amylase 31 Lipase 7 L 02/10/20 02/10/20 02/10/20 14:40 14:40 17:04 WBC RBC Hgb Hct MCV MCH MCHC RDW Plt Count MPV Immature Gran % (Auto) Neut % (Auto) Lymph % (Auto) [place] % (Auto) Eos % (Auto) Baso % (Auto) Lymph # (Auto) [place] # (Auto) Eos # (Auto) Baso # (Auto) Abs Immat Gran (auto) Absolute Neuts (auto) Absolute Nucleated RBC Nucleated RBC % (auto) Sodium Potassium Chloride Carbon Dioxide Anion Gap BUN Creatinine Estim Creat Clear Calc Estimated GFR POC Glucose 83 Random Glucose Estimat Average Glucose 128 Hemoglobin A1c % 6.1 Calcium Phosphorus Magnesium C-Reactive Protein 0.32 Amylase Lipase 02/10/20 02/11/20 02/11/20 21:13 00:47 07:29 WBC RBC Hgb Hct MCV MCH MCHC RDW Plt Count MPV Immature Gran % (Auto) Neut % (Auto) Lymph % (Auto) [place] % (Auto) Eos % (Auto) Baso % (Auto) Lymph # (Auto) [place] # (Auto) Eos # (Auto) Baso # (Auto) Abs Immat Gran (auto) Absolute Neuts (auto) Absolute Nucleated RBC Nucleated RBC % (auto) Sodium Potassium Chloride Carbon Dioxide Anion Gap BUN Creatinine Estim Creat Clear Calc Estimated GFR POC Glucose 85 208 H 169 H Random Glucose Estimat Average Glucose Hemoglobin A1c % Calcium Phosphorus Magnesium C-Reactive Protein Amylase Lipase 02/11/20 02/11/20 02/11/20 11:43 17:25 23:50 WBC RBC Hgb Hct MCV MCH MCHC RDW Plt Count MPV Immature Gran % (Auto) Neut % (Auto) Lymph % (Auto) [place] % (Auto) Eos % (Auto) Baso % (Auto) Lymph # (Auto) [place] # (Auto) Eos # (Auto) Baso # (Auto) Abs Immat Gran (auto) Absolute Neuts (auto) Absolute Nucleated RBC Nucleated RBC % (auto) Sodium Potassium Chloride Carbon Dioxide Anion Gap BUN Creatinine Estim Creat Clear Calc Estimated GFR POC Glucose 172 H 134 H 228 H Random Glucose Estimat Average Glucose Hemoglobin A1c % Calcium Phosphorus Magnesium C-Reactive Protein Amylase Lipase 02/12/20 05:45 WBC RBC Hgb Hct MCV MCH MCHC RDW Plt Count MPV Immature Gran % (Auto) Neut % (Auto) Lymph % (Auto) [place] % (Auto) Eos % (Auto) Baso % (Auto) Lymph # (Auto) [place] # (Auto) Eos # (Auto) Baso # (Auto) Abs Immat Gran (auto) Absolute Neuts (auto) Absolute Nucleated RBC Nucleated RBC % (auto) Sodium Potassium Chloride Carbon Dioxide Anion Gap BUN Creatinine Estim Creat Clear Calc Estimated GFR POC Glucose 229 H Random Glucose Estimat Average Glucose Hemoglobin A1c % Calcium Phosphorus Magnesium C-Reactive Protein Amylase Lipase Airway Mallampati Class: II TM Dist: >3cm Neck ROM: Full Denture: Upper Partial: Lower Heart: RRR Assessment and Plan Assessment Anesthesia Assessment: Anesthesia Plan Discussed Final Anesthetic Review NPO: Yes ASA Class: III Final Preanesthetic Review: Consent Obtained/Reviewed Anesthetic Plan Anesthetic Plan: MAC: Disposition: Standard PACU
[2020-02-12] MEDS: Lactated Ringers 1,000 ML 100 ML IVCONT (07:31)
--- NOTE | 2020-02-12 08:17 | P.BOP_ITS ---
Brief Operative Note Date of procedure: 02/12/20 Pre-op diagnosis: Anastomotic ulcer, esophagitis, jejunal ulcers, diarrhea Post-op diagnosis: same (See detailed report) Procedure: PROCEDURE DATE: 02/12/2020 PREOPERATIVE DIAGNOSIS: GERD, esophagitis, anastomotic ulcer, jejunal ulcers, diarrhea, s/p gastric bypass POSTOPERATIVE DIAGNOSIS: Same as above. 1) Improved esophagitis, 2) fixed diaphragmatic hernia, 3) elongated gastric pouch, 4) Candy cane gastro-jejunostomy, 4) GJ anastomotic ulcer, 5) jejunal ulcer with mild stricture 5cm distal to GJ anastomosis PROCEDURE: Xzjkgnwa-[id number]-[id number] with biopsies Surgeon: Severino Loyola M.D.. Ph.D. Healthcare Social Worker: None Anesthesia: IV sedation Estimated blood loss: Minimal FINDINGS AND PROCEDURE: OPERATIVE INDICATIONS: The patient is a 44 year old female known to the service who underwent a laparoscopic revision of sleeve gastrectomy to gastric bypass. Prior to that she had a sleeve gastrectomy with hiatal hernia repair and subsequently a redo hiatal hernia for persistent GERD. The patient was admitted recently for abdominal pain and work-up revealed esophagitis, a GJ ulcer and several jejunal ulcers. Patient was re-admitted for severe diarrhea. Based on this information I recommended an upper endoscopy to evaluate the patient's symptoms. Risks and complications of the surgery were discussed with the patient in advance particularly the possibility of perforation or bleeding that may require surgical intervention. The patient understood the risks and was in agreement with the plan. PROCEDURE: After informed consent was obtained by the patient, the patient was transferred to the Operating Room and was placed in the supine position. After successful induction of IV sedation, a mouth block was placed and the patient was placed in the left lateral decubitus position. An upper endoscopy was performed next, the oropharynx and proximal esophagus appeared within the normal limits. Previous esophagitis has improved. The z-line was irregular and it was at 35 cm from incisors. Small tongues of gastric mucosa protrude into the esophagus in less than 25% circumference. There was a fixed 3.5-4cm hiatal hernia. Hiatus was at 39cm from incisors. There was mild lateral redundancy of the pouch proximal to the hiatus. Three biopsies were obtained from the distal esophagus 2-3 cm proximal to the GE junction and two biopsies from the GE junction. The intra-abdominal portion of the pouch was entered. There was mild gastritis. The gastric pouch is long with an estimated 10cm length. A biopsy was obtained from the gastric pouch. No significant bleeding was noted from any of the biopsy sites. The gastrojejunostomy was patent. There was a large anastomotic ulcer but it appeared to be in a healing phase. There was mild elongation (3-4cm) of the blind end of the Efra limb (candy cane anatomy. At that point the scope was advanced into the proximal small intestine (proximal Efra limb) to a distance of 80cm from incisors. There was a second jejunal ulcer about 5cm distal to the GJ anastomosis causing mild stricture and inflammation at the area. The scope can easily pass through. The remaining of the examined Efra limb up to 80cm from incisors appeared to be normal. The Efra limb and the pouch were then decompressed and the scope was withdrawn from the patient's mouth. The patient was awaken and was transferred in stable condition to the Recovery Room for further care. I was present and performed all steps of the procedure. There were no residents to assist with this case. Please send a copy of the operative report to Dr. Vitaliy Godfrey. Severino Loyola M.D., Ph.D. Surgeon: Meet Loyola MD Anesthesia: MAC Estimated blood loss (mL): 5 IV fluids (mL): 300 Urine output (mL): 0 (No Mchugh to record) Pathology: other (1) Distal esophagus x3, 2) GEJ x2, 3) stomach x1) Condition: stable Disposition: PACU
[2020-02-12 08:26] LABS: Glucose, Whole Blood 176 mg/dL (60-115)
--- NOTE | 2020-02-12 08:38 | PM.PNGS ---
Subjective Subjective Interval history: Diarrhea has resolved. Complained of nausea overnight. No abdominal pain UGI was reviewed yesterday. Was read as no GERD or hiatal hernia, but in my review there is a 3-4cm fixed diaphragmatic hernia. Physical Exam Vital Signs: Vital Signs: Last Vital Signs Temp 97.7 F 02/12/20 07:11 Pulse 70 02/12/20 07:11 Resp 16 02/12/20 07:11 BP 161/81 H 02/12/20 07:11 Pulse Ox 99 02/12/20 07:11 Body Mass Index 27.4 Resp: Effort & Inspection: normal respiratory effort Cardio: Jugular venous distension: no JVD Rate: regular rate GI: Inspection: Yes normal to inspection Palpation (GI): Soft to palpation (no tenderness) Extrem: Right lower extremity: normal to inspection (no calf tenderness) Left lower extremity: normal to inspection (no calf tenderness) Progress Note: A&P Assessment and plan (1) Hiatal hernia: Status: Acute (2) GERD (gastroesophageal reflux disease): Problem details: EGD to assess with biopsies of esophagus and gastric pouch planned All plans have been discussed with the patient who is in agreement. Status: Acute (3) Marginal ulcers: Problem details: EGD to re assess ulcers and esophagitis, NPO, IVF, PPI Status: Acute Assessment and Plan: EGD today to assess status of esophagitis and anastomotic ulcer as well as the presence of a diaphragmatic hernia. Patient understands and is in agreement with the plan. (4) Diarrhea: Problem details: Stool cultures have been ordered, normal WBC count. Diarrhea may represent chronic GI condition. If stool cultures are negative this could be diet-related. If persists, a GI consult will be obtained for additional feedback. Status: Acute Fall Risk Details Current Medications: Current Medications Generic Name Dose Route Start Last Admin Trade Name Freq PRN Reason Stop Dose Admin Acetaminophen 650 mg 02/12/20 07:26 Acetaminophen 325 Mg Tablet PO ONCE PRN Pain, Mild (Pain Scale 1-3) Hydromorphone HCl 0.25 mg 02/11/20 12:30 02/11/20 17:31 Hydromorphone Hcl 0.5 Mg/0.5 Ml Syringe IVPUSH 0.25 mg Q4H PRN Administration Headache Acetaminophen 1,000 mg in 100 mls @ 400 mls/hr 02/10/20 10:15 02/11/20 20:10 Ofirmev IV Infused Q6H PRN Infusion Pain, Moderate (Pain Scale 4-6 Dextrose/Lactated Ringer's 1,000 mls @ 125 mls/hr 02/11/20 00:00 02/12/20 04:35 D5lr IVCONT 125 mls/hr .Q8H KEHINDE Administration Lactated Ringer's 1,000 mls @ 100 mls/hr 02/12/20 07:30 02/12/20 07:31 Lr IVCONT 100 mls/hr .Q10H KEHINDE Administration Insulin Pump 1 each 02/10/20 11:30 02/11/20 21:15 Subcutaneous Insulin Pump SUBCUT 1 each QIDACHS KEHINDE Administration Metoclopramide HCl 10 mg 02/10/20 10:01 02/11/20 19:25 Metoclopramide Hcl 10 Mg/2 Ml Vial IVPUSH 10 mg Q6H PRN Administration Nausea Non-Formulary Medication 330 container 02/12/20 08:19 Ensure Max PO 02/12/20 08:20 ONCE ONE Ondansetron HCl 4 mg 02/10/20 10:15 02/12/20 02:27 Ondansetron Hcl 4 Mg/2 Ml Vial IVPUSH 4 mg Q8H KEHINDE Administration Ondansetron HCl 4 mg 02/12/20 07:26 Ondansetron Hcl 4 Mg/2 Ml Vial IVPUSH ONCE PRN Nausea and Vomiting Pantoprazole Sodium 40 mg 02/10/20 10:15 02/11/20 21:14 Pantoprazole Sodium 40 Mg/10 Ml Vial IVPUSH 40 mg BID KEHINDE Administration Sodium Chloride 3 ml 02/10/20 16:00 02/11/20 23:03 0.9 % Sodium Chloride Flush 3 Ml Syringe IVFLUSH Not Given QSHIFT KEHINDE Sucralfate 1 gm 02/12/20 16:30 Sucralfate 1 Gm/10 Ml Oral.Susp PO BIDAC KEHINDE Time Spent With Patient Time: Total time spent is greater than 50% in coordination of care (as documented) at patient's floor/unit and/or counseling patient: Time with patient: 15 - 24 minutes
--- NOTE | 2020-02-12 08:41 | HO.POSTANES ---
Post Anesthesia Evaluation Post Anesthesia Evaluation Vital Signs: Vital Signs Temp Pulse Resp BP Pulse Ox 02/12/20 08:21 97.1 F 73 16 99/49 L 98 02/12/20 07:11 97.7 F 70 16 161/81 H 99 02/12/20 03:33 97.3 F 65 19 131/66 96 02/11/20 23:00 97.7 F 68 19 116/68 96 Anesthesia: Monitored Mental Status: Awake Pain Control: Satisfactory Nausea/Vomiting: None Hydration: Adequate Anesthesia-Related Issues: No Anes. Related Issues
--- NOTE | 2020-02-12 08:59 | MHC.SHP ---
Pre-Procedural Eval Section A The patient is an INPATIENT: Yes The History & Physical has been completed within 30 days and I have reviewed it.: Yes Section B Chief Complaint: abd pain, diarrhea s/p gbp Allergies: Allergies Allergy/AdvReac Type Severity Reaction Status Date / Time codeine [Codeine] Allergy Unknown N/V, Verified 01/29/20 11:32 vomiting Sulfa (Sulfonamide Allergy Unknown RASH Verified 01/29/20 11:32 Antibiotics) [SULFA (SULFONAMIDE ANTIBIOTICS)] Review of Systems Sugical H&P ROS: Negative: Constitution, Cardiovascular, Respiratory, Neurological, Psychiatric, Hem-Onc, Allergic/Immunologic, Genitourinary, Musculoskeletal, Integumentary, Endocrine and Eyes/Ears/Nose/Throat and Yes, Specify: Gastrointestinal (nausea and diarrhea) Exam Surgical H&P Exam: Normal: HEENT, Normal: Heart, Normal: Lungs, Normal: Extremities, Normal: Abdomen, Normal: Skin and Normal: Neurological Plan Diagnosis/Plan: Unchanged Patient has been examined and remains a candidate for the planned procedure
[2020-02-12] MEDS: Pantoprazole Sodium 40 MG/10 ML VIAL IVPUSH ×2 (09:11→20:12)
[2020-02-12 09:12] LABS: Glucose, Whole Blood 141 mg/dL (60-115)
[2020-02-12] MEDS: Subcutaneous Insulin Pump 1 EACH SUBCUT ×4 (09:18→20:12)
[2020-02-12] MEDS: 0.9 % Sodium Chloride Flush 3 ML SYRINGE IVFLUSH (09:18)
[2020-02-12 11:59] LABS: Glucose, Whole Blood 194 mg/dL (60-115)
[2020-02-12] MEDS: Metoclopramide HCl 10 MG/2 ML VIAL IVPUSH ×2 (14:09→20:12)
[2020-02-12 19:00] LABS: Glucose, Whole Blood 271 mg/dL (60-115)
[2020-02-12 23:32] LABS: Glucose, Whole Blood 309 mg/dL (60-115)
[2020-02-13] MEDS: 0.9 % Sodium Chloride Flush 3 ML SYRINGE IVFLUSH (02:40)
[2020-02-13] MEDS: ondansetron HCL 4 MG/2 ML VIAL IVPUSH ×2 (02:40→10:32)
[2020-02-13 03:28] VITALS: BP 108/53; PULSE 67; RESP 19; TEMP 36.6; O2SAT 98
[2020-02-13] MEDS: Dextrose 5 % and Lactated Ring 1,000 ML 125 ML IVCONT (05:40)
[2020-02-13 05:48] VITALS: BMI 27.6
[2020-02-13 06:00] LABS: Glucose, Whole Blood 234 mg/dL (60-115)
[2020-02-13 07:02] VITALS: BP 132/72; PULSE 71; RESP 18; TEMP 36.7; O2SAT 96
[2020-02-13] MEDS: Subcutaneous Insulin Pump 1 EACH SUBCUT (07:38)
[2020-02-13] MEDS: Pantoprazole Sodium 40 MG/10 ML VIAL IVPUSH (07:46)
--- NOTE | 2020-02-13 07:50 | PM.PNGS ---
Subjective Subjective Interval history: Feels better. No nausea or diarrhea or pain since endoscopy. Did one Ensure Max protein shake Physical Exam Vital Signs: Vital Signs: Last Vital Signs Temp 98.1 F 02/13/20 07:02 Pulse 71 02/13/20 07:02 Resp 18 02/13/20 07:02 BP 132/72 02/13/20 07:02 Pulse Ox 96 02/13/20 07:02 Body Mass Index 27.6 GI: Inspection: Yes normal to inspection Palpation (GI): Soft to palpation (no tenderness) Progress Note: A&P Assessment and plan (1) GERD (gastroesophageal reflux disease): Problem details: EGD findings were discussed. Patient to do 2 Ensure Max protein shakes this morning drinking 1oz every 15min. If she does OK, without nausea, pain or diarrhea, will be discharged at noon At home she will be on 5 Pure protein shakes per day with 1/2 scoop each in 8oz of low fat unsweetened almond milk taking 2 hours to do each one. No food or bars. Stop collagen shakes. Continue Pantoprazole every 12 hours and Carafate every 12 hours. Follow up at the office with the PA in one week. Instructions were discussed with the patient and the RN. Status: Acute (2) Marginal ulcers: Problem details: EGD to re assess ulcers and esophagitis, NPO, IVF, PPI Status: Acute (3) Hiatal hernia: Status: Acute Fall Risk Details Current Medications: Current Medications Generic Name Dose Route Start Last Admin Trade Name Freq PRN Reason Stop Dose Admin Acetaminophen 650 mg 02/12/20 07:26 Acetaminophen 325 Mg Tablet PO ONCE PRN Pain, Mild (Pain Scale 1-3) Hydromorphone HCl 0.25 mg 02/11/20 12:30 02/11/20 17:31 Hydromorphone Hcl 0.5 Mg/0.5 Ml Syringe IVPUSH 0.25 mg Q4H PRN Administration Headache Acetaminophen 1,000 mg in 100 mls @ 400 mls/hr 02/10/20 10:15 02/11/20 20:10 Ofirmev IV Infused Q6H PRN Infusion Pain, Moderate (Pain Scale 4-6 Dextrose/Lactated Ringer's 1,000 mls @ 125 mls/hr 02/11/20 00:00 02/13/20 05:40 D5lr IVCONT 125 mls/hr .Q8H KEHINDE Administration Lactated Ringer's 1,000 mls @ 100 mls/hr 02/12/20 07:30 02/13/20 03:18 Lr IVCONT Not Given .Q10H KEHINDE Insulin Pump 1 each 02/10/20 11:30 02/13/20 07:38 Subcutaneous Insulin Pump SUBCUT 1 each QIDACHS KEHINDE Administration Metoclopramide HCl 10 mg 02/10/20 10:01 02/12/20 20:12 Metoclopramide Hcl 10 Mg/2 Ml Vial IVPUSH 10 mg Q6H PRN Administration Nausea Ondansetron HCl 4 mg 02/10/20 10:15 02/13/20 02:40 Ondansetron Hcl 4 Mg/2 Ml Vial IVPUSH 4 mg Q8H KEHINDE Administration Ondansetron HCl 4 mg 02/12/20 07:26 Ondansetron Hcl 4 Mg/2 Ml Vial IVPUSH ONCE PRN Nausea and Vomiting Pantoprazole Sodium 40 mg 02/10/20 10:15 02/13/20 07:46 Pantoprazole Sodium 40 Mg/10 Ml Vial IVPUSH 40 mg BID KEHINDE Administration Sodium Chloride 3 ml 02/10/20 16:00 02/13/20 07:39 0.9 % Sodium Chloride Flush 3 Ml Syringe IVFLUSH Not Given QSHIFT KEHINDE Sucralfate 1 gm 02/12/20 16:30 02/13/20 07:46 Sucralfate 1 Gm/10 Ml Oral.Susp PO 1 gm BIDAC KEHINDE Administration Time Spent With Patient Time: Total time spent is greater than 50% in coordination of care (as documented) at patient's floor/unit and/or counseling patient: Time with patient: 15 - 24 minutes Procedures Abscess I/D Date of Service: 02/13/20
[2020-02-13 07:52] LABS: Glucose, Whole Blood 223 mg/dL (60-115)
[2020-02-13 08:00] VITALS: BP 132/72; PULSE 71; RESP 18; TEMP 36.7; O2SAT 96
--- NOTE | 2020-02-13 09:01 | MHC.CM.PN ---
nurse lead care manager note electron ic medical record reviewed along with case discussed with staff nurse . [patient is nows/p esophago gastro jejunoscopy with biopsies per documentation (improved esophagitis, fixed diaphramatic hernia, elongated gastric pouch gastro jejunostomuy anasdtomotic ulcer, jejunal ulcer with mild stricture) she started on bariatric shakes last evening and advancin this morning . if patient is able to conotniue to tolerate this she will not need any vna or home infusion cvo for iv fluids. late entry from 02/12/20 out of 11 vna agencies [facility] was the only one that would be able to accept patient (despite insurance listed on carport the following declined either not contracted , out of network , out os service area short staffing ,/ [facility], [facility] care discharge plan home with no services)- pcp patient follow up post hospital discharge bariatric surgeon follow
[2020-02-13] MEDS: Metoclopramide HCl 10 MG/2 ML VIAL IVPUSH (09:06)
--- NOTE | 2020-02-13 10:29 | HO.POSTANES ---
Post Anesthesia Evaluation Post Anesthesia Evaluation Vital Signs: Vital Signs Temp Pulse Resp BP Pulse Ox 02/13/20 08:00 98.1 F 71 18 132/72 96 02/13/20 07:02 98.1 F 71 18 132/72 96 02/13/20 03:28 97.8 F 67 19 108/53 L 98 02/12/20 23:07 97.7 F 72 19 137/74 96 Anesthesia: Monitored Mental Status: Awake Pain Control: Satisfactory Nausea/Vomiting: None Hydration: Adequate Anesthesia-Related Issues: No Anes. Related Issues
[2020-02-13 11:01] VITALS: BP 137/71; PULSE 66; RESP 17; TEMP 36.2; O2SAT 100
[2020-02-13 11:26] LABS: Glucose, Whole Blood 187 mg/dL (60-115)
--- NOTE | 2020-02-13 14:02 | MHC.CM.PN ---
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
--- NOTE | 2020-03-23 16:02 | PM.DS ---
DS: Providers Provider Date of admission: 02/10/20 12:32 Primary care physician: Vitaliy Godfrey MD DS: Diagnosis Discharge Diagnosis (1) GERD (gastroesophageal reflux disease): Status: Acute (2) Marginal ulcers: Status: Acute Problem details: Patient noted to have severe marginal ulcer disease after gastric bypass. Patient underwent repeat endoscopy showing improvement. Patient is now having repeat endoscopy to evaluate marginal ulcer. (3) Hiatal hernia: Status: Acute DS: Medications Discharge Medications Home Medications: Home Medications Medication Instructions Recorded Confirmed duloxetine 30 mg capsule,delayed 30 mg PO BID 01/08/20 03/05/20 release hydroxyzine HCl 50 mg tablet 50 mg PO BEDTIME 01/08/20 03/05/20 infusion set for insulin pump #2 ea 01/08/20 03/03/20 multivitamin 1 cap PO DAILY 01/08/20 03/05/20 topiramate 100 mg tablet 100 mg PO BEDTIME 01/08/20 03/05/20 bupropion HCl [Wellbutrin XL] 150 mg PO DAILY 02/10/20 03/05/20 insulin lispro [Humalog U-100 0 unit SUBCUT DAILY PRN 02/10/20 03/05/20 Insulin] Previous Rx's Medication Instructions Recorded pantoprazole [Protonix] 40 mg PO BID #60 tab 01/30/20 sucralfate [Carafate] 10 ml PO QID 30 Days #1200 ml 01/30/20 DS: Summary Time Spent with Patient Time attestation: Total time spent providing and/or coordinating discharge services: Physical Exam Vital Signs: Vital Signs: Last Vital Signs Temp 97.1 F 02/13/20 11:01 Pulse 66 02/13/20 11:01 Resp 17 02/13/20 11:01 BP 137/71 02/13/20 11:01 Pulse Ox 100 02/13/20 11:01 Body Mass Index 27.6 DS: Data Data Completed and Pending Completed studies during hospitalization [Text1]: Pending at discharge 02/12/20 08:21 Surgical [PTH] Routine Procedures Excision of Esophagogastric Junction, Via Natural or Artificial Opening Endoscopic, Diagnostic (02/10/20) Excision of Jejunum, Via Natural or Artificial Opening Endoscopic, Diagnostic (01/28/20) Excision of Lower Esophagus, Via Natural or Artificial Opening Endoscopic, Diagnostic (02/10/20) Labs on day of discharge: 02/10/20 CT abdomen pelvis w con Urgent 02/10/20 10:01 Ambulate Q4H WHILE AWAKE Intake and Output QSHIFT Up ad inga .Continous Vital Signs QSHIFT Code Status Routine Metoclopramide HCl [Reglan] 10 mg IVPUSH Q6H PRN 02/10/20 10:15 Acetaminophen [Ofirmev] 1,000 mg in 100 ml IV Q6H Lactated Ringers [Lr] 1,000 ml IVCONT 125 mls/hr Pantoprazole Sodium [Protonix] 40 mg IVPUSH BID ondansetron HCL [Zofran] 4 mg IVPUSH Q8H 02/10/20 11:30 Subcutaneous Insulin Pump [Insulin Pump (Pt own)] 1 each SUBCUT QIDACHS 02/10/20 13:02 Glucose, Whole Blood Routine 02/10/20 14:40 Amylase Urgent Basic Metabolic Panel Urgent C Reactive Protein Routine Complete Blood Count Auto Diff Urgent Hemoglobin A1c Routine Lipase Urgent Magnesium Urgent Phosphorus Urgent 02/10/20 15:03 Glucose, blood poc Q6HR 02/10/20 16:00 0.9 % Sodium Chloride Flush [NS Flush] 3 ml IVFLUSH QSHIFT iohexoL 350 MG/ML [Omnipaque 350 MG/ML] 100 ml IV ONCE ONE 02/10/20 16:03 Barium Sulfate Oral (Downing) [Readi-Cat 2 Smoothie (Downing)] 450 ml PO ONCE ONE 02/10/20 17:04 Glucose, Whole Blood Routine 02/10/20 21:13 Glucose, Whole Blood Routine 02/11/20 00:00 Dextrose 5 % and Lactated Ring [D5lr] 1,000 ml IVCONT 125 mls/hr 02/11/20 00:47 Glucose, Whole Blood Routine 02/11/20 07:29 Glucose, Whole Blood Routine 02/11/20 08:03 FL upper GI series Urgent 02/11/20 11:43 Glucose, Whole Blood Routine 02/11/20 12:30 HYDROmorphone HCl [Dilaudid] 0.25 mg IVPUSH Q4H PRN 02/11/20 15:08 Weight DAILY@0600 02/11/20 17:25 Glucose, Whole Blood Routine 02/11/20 21:39 ondansetron HCL [Zofran] 4 mg IVPUSH ONCE ONE 02/11/20 23:50 Glucose, Whole Blood Routine 02/12/20 05:45 Glucose, Whole Blood Routine 02/12/20 07:18 Lidocaine HCl 2 % MPF [Xylocaine 2 % MPF] 5 ml .ROUTE .STK-MED ONE propofoL [Diprivan] 200 mg IVPUSH .STK-MED ONE 02/12/20 07:26 Continuous pulse oximetry CONT Vital Signs Q4HR Vital Signs Q5MIN Acetaminophen [Tylenol] 650 mg PO ONCE PRN ondansetron HCL [Zofran] 4 mg IVPUSH ONCE PRN 02/12/20 07:30 Lactated Ringers [Lr] 1,000 ml IVCONT 100 mls/hr 02/12/20 07:54 propofoL [Diprivan] 200 mg IVPUSH .STK-MED ONE 02/12/20 08:19 Ensure Max 330 container PO ONCE ONE 02/12/20 08:21 Glucose, Whole Blood Routine Surgical [PTH] Routine 02/12/20 09:05 Glucose, Whole Blood Routine 02/12/20 11:52 Glucose, Whole Blood Routine 02/12/20 16:30 Sucralfate Oral Suspension [Carafate Oral Suspension] 1 gm PO BIDAC 02/12/20 18:56 Glucose, Whole Blood Routine 02/12/20 23:25 Glucose, Whole Blood Routine 02/13/20 05:56 Glucose, Whole Blood Routine 02/13/20 07:04 Glucose, Whole Blood Routine 02/13/20 11:03 Glucose, Whole Blood Routine Laboratory Last Values WBC 7.1 X10*3/uL (4.8-10.8) 02/10/20 14:40 RBC 3.66 X10*6/uL (4.20-5.50) L 02/10/20 14:40 Hgb 10.5 g/dl (12.0-16.0) L 02/10/20 14:40 Hct 33.1 % (37-47) L 02/10/20 14:40 MCV 90.4 fL (80-98) 02/10/20 14:40 MCH 28.7 pg (27.0-33.0) 02/10/20 14:40 MCHC 31.7 g/dl (31.0-35.0) 02/10/20 14:40 RDW 14.5 % (11.0-16.0) 02/10/20 14:40 Plt Count 370 X10*3/uL (160-400) D 02/10/20 14:40 MPV 10.8 fL (9.4-12.3) 02/10/20 14:40 Immature Gran % (Auto) 0.4 % (0.0-0.4) 02/10/20 14:40 Neut % (Auto) 60.3 % (45-73) 02/10/20 14:40 Lymph % (Auto) 30.4 % (20-40) 02/10/20 14:40 Stewart % (Auto) 6.8 % (2-11) 02/10/20 14:40 Eos % (Auto) 1.7 % (0-4) 02/10/20 14:40 Baso % (Auto) 0.4 % (0-2) 02/10/20 14:40 Lymph # (Auto) 2.2 X10*3/uL (1.2-4.9) 02/10/20 14:40 Stewart # (Auto) 0.5 X10*3/uL (0.1-1.2) 02/10/20 14:40 Eos # (Auto) 0.1 X10*3/uL (0.0-0.4) 02/10/20 14:40 Baso # (Auto) 0.0 X10*3/uL (0.0-0.2) 02/10/20 14:40 Abs Immat Gran (auto) 0.03 X10*3/uL (0.00-0.03) 02/10/20 14:40 Absolute Neuts (auto) 4.3 X10*3/uL (2.0-8.3) 02/10/20 14:40 Absolute Nucleated RBC 0.000 X10*3/uL (0.0-0.012) 02/10/20 14:40 Nucleated RBC % (auto) 0.0 /100WBC (0.0-0.2) 02/10/20 14:40 Sodium 137 mmol/L (135-145) 02/10/20 14:40 Potassium 3.7 mmol/l (3.3-5.1) 02/10/20 14:40 Chloride 110 mmol/L (96-108) H 02/10/20 14:40 Carbon Dioxide 18 mmol/L (22-29) L 02/10/20 14:40 Anion Gap 13 (12-20) 02/10/20 14:40 BUN 24 mg/dL (9-16) H D 02/10/20 14:40 Creatinine 0.80 mg/dL (0.5-1.4) 02/10/20 14:40 Estim Creat Clear Calc TNP 02/10/20 14:40 Estimated GFR > 60 02/10/20 14:40 POC Glucose 187 mg/dL (60-115) H 02/13/20 11:03 Random Glucose 127 mg/dL (60-115) H 02/10/20 14:40 Estimat Average Glucose 128 mg/dL 02/10/20 14:40 Hemoglobin A1c % 6.1 % 02/10/20 14:40 Calcium 8.2 mg/dL (8.4-10.2) L 02/10/20 14:40 Phosphorus 3.4 mg/dL (2.7-4.5) 02/10/20 14:40 Magnesium 2.3 mg/dL (1.6-2.6) 02/10/20 14:40 C-Reactive Protein 0.32 mg/dL (< or = 0.50) 02/10/20 14:40 Amylase 31 U/L (28-100) 02/10/20 14:40 Lipase 7 U/L (8-78) L 02/10/20 14:40 Discharge Plan Discharge Patient Disposition: Home, Self-Care Referrals: Vitaliy Godfrey MD [Primary Care Provider] - 1 Week (Nurse will call you to schedule a follow up appointment) Discharge Medications: Continued bupropion HCl [Wellbutrin XL] 150 mg Tablet Extended Release 24 Hr 150 mg PO DAILY RF: 0 insulin lispro [Humalog U-100 Insulin] 100 unit/mL Solution 0 unit SUBCUT DAILY PRN (Reason: INSULIN PUMP REFILL) RF: 0 pantoprazole [Protonix] 40 mg tablet,delayed release (DR/EC) 40 mg PO BID Qty: 60 RF: 8 sucralfate [Carafate] 100 mg/mL suspension 10 ml PO QID 30 Days Qty: 1200 RF: 4 topiramate [Topamax] 100 mg tablet 100 mg PO BEDTIME RF: 0 (DME) infusion set for insulin pump Infusion Set See Rx Instructions .ROUTE .MEDSUPPLY Qty: 2 RF: 0 duloxetine [Cymbalta] 30 mg capsule,delayed release(DR/EC) 30 mg PO BID RF: 0 multivitamin Capsule 1 cap PO DAILY RF: 0 Held hydroxyzine HCl 50 mg tablet 50 mg PO BEDTIME RF: 0 Hold Instructions: hold Discontinued calcium carbonate [Calcium 500] 500 mg calcium (1,250 mg) tablet 500 mg PO BID RF: 0 Discharge Orders: Discharge Order (Routine); Ordered 02/13/20 Ordered By: Meet Loyola Diet: other Activity on Discharge: As tolerated Discharge Date/Time: 02/13/20 14:41 Activity Restrictions/Additional Instructions: Discharge Instructions: At home she will be on 5 Pure protein shakes per day with 1/2 scoop each in 8oz of low fat unsweetened almond milk taking 2 hours to do each one. No food or bars. Stop collagen shakes. Continue Pantoprazole every 12 hours and Carafate every 12 hours. Follow up at the office with the PA in one week (appointment scheduled for next Sunday02/20/20 at 9am), then weekly after that. Discharge Summary: Date of Service: 02/13/20 Admitting Diagnosis: abdominal pain and diarrhea s/p revision LSG --> LRYGB Discharge Diagnosis: GERD, marginal ulcers, hiatal hernia Procedure Performed: Discharge Medications: 1. pantoprazole BID 2. sucralfate BID Discharge Instructions: See above, Dr. Loyola discussed with patient this morning. Hospital Course: The patient was admitted after experieneing abdominal pain and persisant diarrhea. She is 3 yrs s/p LSG and anterior hiatal hernia repair in 2017 at [facility] [place] with Dr. Castaneda, then had persistent GERD and a GI bleed in 2018. At that time had a recurrent hiatal hernia and erosive esophagitis. Had a conversion to LRYGB with Dr. Castaneda on 11/26/19. She was previously admitted last month on 01/27/20 for abdominal pain - CT scan showed edematous bowel, and endoscopy revealed erosive esophagitis, an anastomotic ulcer, and jejunal ulcers at the Efra limb. She was discharged on collagen powder and broth, and experienced worsening diarrhea up to 10+ BMs/day. Re-admitted directly on 02/10/20. UGI was read as no GERD or hiatal hernia, but in Dr. Loyola's review there is a 3-4cm fixed diaphragmatic hernia. Endoscopy on 02/12/20 showed 1) Improved esophagitis, 2) fixed diaphragmatic hernia, 3) elongated gastric pouch, 4) Candy cane gastro-jejunostomy, 4) GJ anastomotic ulcer, 5) jejunal ulcer with mild stricture 5cm distal to GJ anastomosis. Patient started on po protein shakes on 02/12/20. Tolerated well, slight nausea, but no abdominal pain and diarrhea has ceased since admission. Today 02/13/20 tolerated 2 protein shakes po and was discharged home with the above instructions. Discharge Disposition: Home. Visit Report Forms: Patient Portal Discharge page Care Plan Goals: Heal ulcer Health Concerns: Follow directions Plan of Treatment: In my note
== END 2020-02-13 14:41 | disposition home or self-care (01) | DRG 241 ==
PROVIDERS: Physician Assistant; Admitting Provider Surgery; PCP Internal Medicine; Visit Provider Surgery
PROC: 0DJ08ZZ Inspection of Upper Intestinal Tract, Via Natural or Artificial Opening Endoscopic (ICD-10-PCS; CPT 43235; principal; 2020-02-12 07:30)
DX: K28.9 Gastrojejunal ulcer, unspecified as acute or chronic, without hemorrhage or perforation (principal); E66.3 Overweight; K20.90 Esophagitis, unspecified without bleeding; K21.9 Gastro-esophageal reflux disease without esophagitis; Z68.27 Body mass index [BMI] 27.0-27.9, adult; Z87.891 Personal history of nicotine dependence; Z79.4 Long term (current) use of insulin; Z98.84 Bariatric surgery status; Z88.2 Allergy status to sulfonamides; Z88.5 Allergy status to narcotic agent; Z79.899 Other long term (current) drug therapy
CPT/HCPCS: 43239; 36415; 74177; 74240; 80048; 82150; 82947; 83036; 83690; 83735; 84100; 85025; 86140; 88305; 88342; 99218; J0131; J1170; J2405; J2765; Q9967

== ENCOUNTER → 2020-03-03 08:53 | Outpatient (BNVA) | payer OTHER, SELFPAY | PROVIDERS: PCP Internal Medicine; Visit Provider Physician Assistant | DX: Z76.89 Persons encountering health services in other specified circumstances (principal) ==

== ENCOUNTER 2020-03-10 06:25 | Day surgery (SDC) | payer OTHER, SELFPAY ==
--- NOTE | 2020-03-09 12:34 | HO.ANESPROP2 ---
Documented by User: Araceli De Santiago 03/09/20 12:40 HPI - Anesthesia Eval Consult details Narrative: 44yo F for Upper Endoscopy s/p gastric bypass 11/2019 [facility] Past Medical History Medical History Chronic migraine w/o aura w/o status migrainosus, not intractable GERD (gastroesophageal reflux disease) Hiatal hernia History of anxiety History of depression Hyperglycemia Hypertension Insulin dependent diabetes mellitus Intestinal malabsorption following gastrectomy Malabsorption due to intolerance, not elsewhere classified Overweight (BMI 25.0-29.9) PONV (postoperative nausea and vomiting) Family History Family History Father Type 2 diabetes mellitus HTN (hypertension) Mother Obesity History of breast cancer Daughter No problems noted. Brother No problems noted. Son No problems noted. Surgical History Surgical History History of History of repair of hiatal hernia History of Efra-en-Y gastric bypass History of total abdominal hysterectomy Hx of esophagogastroduodenoscopy S/P laparoscopic sleeve gastrectomy Social History Social History Household Members: Unknown / Unable to assess Housing: House Alcohol intake: current Alcohol intake frequency: a few times a month Smoking Status: Former smoker Smoking Quit Date: 1998 Substance Use Type: Marijuana Advance Directives: No Advance Directives Information Provided: No Advance Directives on File: No service: No Current occupational status: employed Meds Allergies Allergy/AdvReac Type Severity Reaction Status Date / Time codeine [Codeine] Allergy Unknown N/V, Verified 03/05/20 10:31 vomiting Sulfa (Sulfonamide Allergy Unknown RASH Verified 03/05/20 10:31 Antibiotics) [SULFA (SULFONAMIDE ANTIBIOTICS)] Home Medications Medication Instructions Recorded Confirmed Type duloxetine 30 mg capsule,delayed 30 mg PO BID 01/08/20 03/05/20 History release hydroxyzine HCl 50 mg tablet 50 mg PO BEDTIME 01/08/20 03/05/20 History infusion set for insulin pump #2 ea 01/08/20 03/03/20 History multivitamin 1 cap PO DAILY 01/08/20 03/05/20 History topiramate 100 mg tablet 100 mg PO BEDTIME 01/08/20 03/05/20 History bupropion HCl [Wellbutrin XL] 150 mg PO DAILY 02/10/20 03/05/20 History insulin lispro [Humalog U-100 0 unit SUBCUT DAILY PRN 02/10/20 03/05/20 History Insulin] Exam Exam Date and Time: March 09, 2020 1234 Height,Weight and Vital Signs: Height 5 ft 4 in Pertinent Lab Results Pertinent Lab Results: Laboratory Tests 02/10/20 02/10/20 14:40 14:40 WBC 7.1 Hgb 10.5 L Hct 33.1 L Plt Count 370 D Sodium 137 Potassium 3.7 Chloride 110 H Carbon Dioxide 18 L BUN 24 H D Creatinine 0.80 Assessment and Plan Assessment Anesthesia Assessment: Chart Reviewed Documented by User: Jessica Sage 03/10/20 07:37 [facility] Past Medical History Medical History Chronic migraine w/o aura w/o status migrainosus, not intractable GERD (gastroesophageal reflux disease) Hiatal hernia History of anxiety History of depression Hyperglycemia Hypertension Insulin dependent diabetes mellitus Intestinal malabsorption following gastrectomy Malabsorption due to intolerance, not elsewhere classified Overweight (BMI 25.0-29.9) PONV (postoperative nausea and vomiting) Family History Family History Father Type 2 diabetes mellitus HTN (hypertension) Mother Obesity History of breast cancer Daughter No problems noted. Brother No problems noted. Son No problems noted. Surgical History Surgical History History of History of repair of hiatal hernia History of Efra-en-Y gastric bypass History of total abdominal hysterectomy Hx of esophagogastroduodenoscopy S/P laparoscopic sleeve gastrectomy Social History Social History Household Members: Unknown / Unable to assess Housing: House Alcohol intake: current Alcohol intake frequency: a few times a month Smoking Status: Former smoker Smoking Quit Date: 1998 Substance Use Type: Marijuana Advance Directives: No Advance Directives Information Provided: No Advance Directives on File: No service: No Current occupational status: employed Meds Allergies Allergy/AdvReac Type Severity Reaction Status Date / Time codeine [Codeine] Allergy Unknown N/V, Verified 03/05/20 10:31 vomiting Sulfa (Sulfonamide Allergy Unknown RASH Verified 03/05/20 10:31 Antibiotics) [SULFA (SULFONAMIDE ANTIBIOTICS)] Home Medications Medication Instructions Recorded Confirmed Type duloxetine 30 mg capsule,delayed 30 mg PO BID 01/08/20 03/05/20 History release hydroxyzine HCl 50 mg tablet 50 mg PO BEDTIME 01/08/20 03/05/20 History infusion set for insulin pump #2 ea 01/08/20 03/03/20 History multivitamin 1 cap PO DAILY 01/08/20 03/05/20 History topiramate 100 mg tablet 100 mg PO BEDTIME 01/08/20 03/05/20 History bupropion HCl [Wellbutrin XL] 150 mg PO DAILY 02/10/20 03/05/20 History insulin lispro [Humalog U-100 0 unit SUBCUT DAILY PRN 02/10/20 03/05/20 History Insulin] Exam Airway Mallampati Class: I TM Dist: >3cm Neck ROM: Full Denture: Upper Partial: Lower Loose/Missing/Broken Teeth: Yes (Edentulous upper, missing lower central incisors), Upper and Lower (Edentulous upper, missing lower central incisors) Heart: RRR Lungs: CTA Assessment and Plan Assessment Anesthesia Assessment: Anesthesia Plan Discussed and Chart Reviewed Final Anesthetic Review NPO: Yes ASA Class: III Final Preanesthetic Review: Meds/Allgs Chart Reviewed, Consent Obtained/Reviewed and Anes Risks/Benef Reviewed Patient Risk: Intermediate Procedure Risk: Intermediate Anesthetic Plan Anesthetic Plan: MAC: Disposition: Standard PACU
[2020-03-09 12:54] VITALS: BMI 28.5
--- NOTE | 2020-03-09 17:14 | MHC.SHP ---
Pre-Procedural Eval Section B Chief Complaint: Ulcer Allergies: Allergies Allergy/AdvReac Type Severity Reaction Status Date / Time codeine [Codeine] Allergy Unknown N/V, Verified 03/05/20 10:31 vomiting Sulfa (Sulfonamide Allergy Unknown RASH Verified 03/05/20 10:31 Antibiotics) [SULFA (SULFONAMIDE ANTIBIOTICS)] Plan Patient has been examined and remains a candidate for the planned procedure
--- NOTE | 2020-03-09 17:15 | PM.PNGS ---
Subjective Subjective Date of Service: 03/09/20 Interval history: 44-year-old type 1 diabetic found to have significant marginal ulcer disease after gastric bypass. Patient has had a repeat endoscopy in is undergoing another repeat endoscopy to evaluate improvement ulcer disease. Patient's ulcers were improving on last endoscopy. Physical Exam Vital Signs: Vital Signs: Body Mass Index 28.5 Const: General: cooperative, healthy appearing and comfortable Resp: Effort & Inspection: normal respiratory effort and no audible wheezes Auscultation: clear to auscultation bilaterally Cardio: Heart sounds: S1 normal heart sound present, S2 normal heart sound present and normal S1 and S2 Extrem: General: Yes normal to inspection, Yes no pedal edema and Yes no calf tenderness Progress Note: A&P Assessment and plan (1) Marginal ulcers: Problem details: Patient noted to have severe marginal ulcer disease after gastric bypass. Patient underwent repeat endoscopy showing improvement. Patient is now having repeat endoscopy to evaluate marginal ulcer. Status: Acute Time Spent With Patient Time with patient: less than 15 minutes
[2020-03-10 06:54] LABS: Glucose, Whole Blood 184 mg/dL (60-115)
[2020-03-10 06:58] VITALS: BP 97/72; PULSE 80; RESP 16; TEMP 37.2; O2SAT 97
[2020-03-10 08:06] VITALS: BP 110/62; PULSE 69; RESP 16; TEMP 36.2; O2SAT 100
[2020-03-10 08:21] VITALS: BP 113/71; PULSE 67; RESP 18; TEMP 36.2; O2SAT 100
--- NOTE | 2020-03-10 08:48 | HO.POSTANES ---
Post Anesthesia Evaluation Post Anesthesia Evaluation Vital Signs: Vital Signs Temp Pulse Resp BP Pulse Ox 03/10/20 08:21 97.2 F 67 18 113/71 100 03/10/20 08:06 97.2 F 69 16 110/62 100 03/10/20 06:58 99 F 80 16 97/72 97 Anesthesia: Monitored Mental Status: Awake Pain Control: Satisfactory Nausea/Vomiting: None Hydration: Adequate Anesthesia-Related Issues: No Anes. Related Issues
--- NOTE | 2020-03-10 11:06 | OP_ITS ---
SURGEON: Audelia Castaneda MD PREOPERATIVE DIAGNOSIS: POSTOPERATIVE DIAGNOSIS: PROCEDURE PERFORMED: 1. esophagogastrojejunoscopy 2. Enteroscopy to 90 cm from incisors. ESTIMATED BLOOD LOSS: COMPLICATIONS: None. ANESTHESIA: Total intravenous anesthesia with propofol given by the nurse gas furnace installer. ASSISTANTS: None. SPECIMENS: PREOPERATIVE DIAGNOSES: Marginal ulcer at the gastrojejunal anastomosis as well as small hiatal hernia. POSTOPERATIVE DIAGNOSES: Improved marginal ulcer and small hiatal hernia. FINDINGS: 1. Small sliding hiatal hernia located at the GE junction at 35 cm from the incisors. 2. Improved healing marginal ulcer at anastomosis of the gastrojejunal anastomosis, significantly improved from my first endoscopy. The small punctate ulcerations that was in the small bowel were completely resolved and the ulceration in the distal esophagus was also resolved. There was no evidence of any mucosal lesions within the stomach and there was no evidence of stenosis or torsion. COMPLICATIONS: None. CONDITION: Postprocedure, good. DESCRIPTION OF PROCEDURE: The patient was brought into the operating room, placed on the stretcher in the left lateral decubitus position. A safety time-out was performed. Total intravenous anesthesia was administered using propofol by the nurse gas furnace installer. Once the patient was adequately sedated, the gastroscope was placed in the posterior oropharynx, passed down the esophagus, evaluating esophageal mucosa which was normal. GE junction was located at 35 cm from the incisors. There was a small sliding hiatal hernia. Gastroscope was passed into the stomach. The gastric mucosa was normal. There was no evidence of abnormal lesions or torsion or stenosis. Gastroscope was passed to the anastomosis. There was significant improvement in the marginal ulcer that was on the jejunal surface of the anastomosis, was in good healing condition. There was white plaque on the ulceration and it was superficial. There was no evidence of black eschar anymore. The gastroscope was passed distally. The small punctate ulcerations within the small bowel that were scattered are all resolved. Enteroscopy was performed at 90 cm from the incisors. There were no other abnormalities. All these portions of the upper endoscopy were documented using photo documentation. The gastroscope was retracted back in the stomach. Stomach was desufflated and gastroscope was removed without difficulty. The patient tolerated the procedure well and was sent to the recovery room in stable condition. MD MARAL Gupta/MODL / [phone] MTDD
== END 2020-03-10 09:05 | disposition home or self-care (01) ==
PROVIDERS: PCP Internal Medicine; Visit Provider Surgery
PROC: 0DJ08ZZ Inspection of Upper Intestinal Tract, Via Natural or Artificial Opening Endoscopic (ICD-10-PCS; CPT 43235; principal; 2020-03-10 07:30)
DX: K28.9 Gastrojejunal ulcer, unspecified as acute or chronic, without hemorrhage or perforation (principal); K44.9 Diaphragmatic hernia without obstruction or gangrene; Z98.84 Bariatric surgery status; K91.2 Postsurgical malabsorption, not elsewhere classified; Z98.0 Intestinal bypass and anastomosis status; E10.8 Type 1 diabetes mellitus with unspecified complications; Z96.41 Presence of insulin pump (external) (internal); Z79.4 Long term (current) use of insulin; Z79.899 Other long term (current) drug therapy; Z88.2 Allergy status to sulfonamides; Z88.8 Allergy status to other drugs, medicaments and biological substances
CPT/HCPCS: 43235; 82947; 99024

== ENCOUNTER → 2020-04-09 13:57 | Outpatient (BNVA) | payer OTHER, SELFPAY | PROVIDERS: PCP Internal Medicine; Visit Provider Surgery | DX: Z76.89 Persons encountering health services in other specified circumstances (principal) ==

== ENCOUNTER 2020-04-14 07:37 | Day surgery (SDC) | payer OTHER, SELFPAY ==
[2020-04-13 10:39] VITALS: BMI 25.4
--- NOTE | 2020-04-13 11:54 | P.CONAN_ITS ---
Documented by User: Araceli De Santiago 04/13/20 11:56 HPI - Anesthesia Eval Consult details Narrative: 44yo F for Upper Endoscopy PMFSH Past Medical History Medical History Chronic migraine w/o aura w/o status migrainosus, not intractable GERD (gastroesophageal reflux disease) Hiatal hernia History of anxiety History of depression Hyperglycemia Hypertension Insulin dependent diabetes mellitus Intestinal malabsorption following gastrectomy Malabsorption due to intolerance, not elsewhere classified Overweight (BMI 25.0-29.9) PONV (postoperative nausea and vomiting) Stage 3 chronic kidney disease due to type 1 diabetes mellitus Family History Family History Father Type 2 diabetes mellitus HTN (hypertension) Mother Obesity History of breast cancer Daughter No problems noted. Brother No problems noted. Son No problems noted. Surgical History Surgical History History of History of repair of hiatal hernia History of Efra-en-Y gastric bypass History of total abdominal hysterectomy Hx of esophagogastroduodenoscopy S/P laparoscopic sleeve gastrectomy Social History Social History Household Members: Unknown / Unable to assess Housing: House Alcohol intake: current Alcohol intake frequency: a few times a month Smoking Status: Former smoker Second Hand Smoke Exposure: No Use of substances other than those prescribed or required for medical reasons: Yes Substance Use Type: Marijuana Advance Directives: No Advance Directives Information Provided: No Advance Directives on File: No service: No Current occupational status: employed Meds Allergies Allergy/AdvReac Type Severity Reaction Status Date / Time codeine [Codeine] Allergy Unknown N/V, Verified 04/09/20 14:09 vomiting Sulfa (Sulfonamide Allergy Unknown RASH Verified 04/09/20 14:09 Antibiotics) [SULFA (SULFONAMIDE ANTIBIOTICS)] Home Medications Medication Instructions Recorded Confirmed Type duloxetine 30 mg capsule,delayed 30 mg PO BID 01/08/20 04/09/20 History release hydroxyzine HCl 50 mg tablet 50 mg PO BEDTIME 01/08/20 04/09/20 History infusion set for insulin pump #2 ea 01/08/20 04/09/20 History multivitamin 1 cap PO DAILY 01/08/20 04/09/20 History topiramate 100 mg tablet 100 mg PO BEDTIME 01/08/20 04/09/20 History insulin lispro [Humalog U-100 0 unit SUBCUT DAILY PRN 02/10/20 04/09/20 History Insulin] celebrate calcium citrate 1 tab PO BID 04/09/20 04/09/20 History ondansetron 4 mg disintegrating 4 mg PO Q6-8H PRN 04/09/20 04/09/20 History tablet Exam Exam Date and Time: April 13, 2020 1154 Height,Weight and Vital Signs: Height 5 ft 4 in Weight 67.132 kg Pertinent Lab Results Pertinent Lab Results: Laboratory Tests 02/10/20 02/10/20 14:40 14:40 WBC 7.1 Hgb 10.5 L Hct 33.1 L Plt Count 370 D Sodium 137 Potassium 3.7 Chloride 110 H Carbon Dioxide 18 L BUN 24 H D Creatinine 0.80 Assessment and Plan Assessment Anesthesia Assessment: Chart Reviewed Documented by User: Kena Thompson 04/14/20 08:46 [facility] Past Medical History Medical History Chronic migraine w/o aura w/o status migrainosus, not intractable GERD (gastroesophageal reflux disease) Hiatal hernia History of anxiety History of depression Hyperglycemia Hypertension Insulin dependent diabetes mellitus Intestinal malabsorption following gastrectomy Malabsorption due to intolerance, not elsewhere classified Overweight (BMI 25.0-29.9) PONV (postoperative nausea and vomiting) Stage 3 chronic kidney disease due to type 1 diabetes mellitus Family History Family History Father Type 2 diabetes mellitus HTN (hypertension) Mother Obesity History of breast cancer Daughter No problems noted. Brother No problems noted. Son No problems noted. Family history of problems with anesthesia: No Surgical History Surgical History History of History of repair of hiatal hernia History of Efra-en-Y gastric bypass History of total abdominal hysterectomy Hx of esophagogastroduodenoscopy S/P laparoscopic sleeve gastrectomy History of Problems with Anesthesia: No Social History Social History Household Members: Unknown / Unable to assess Housing: House Alcohol intake: current Alcohol intake frequency: a few times a month Smoking Status: Former smoker Second Hand Smoke Exposure: No Use of substances other than those prescribed or required for medical reasons: Yes Substance Use Type: Marijuana Advance Directives: No Advance Directives Information Provided: No Advance Directives on File: No service: No Current occupational status: employed Meds Allergies Allergy/AdvReac Type Severity Reaction Status Date / Time codeine [Codeine] Allergy Unknown N/V, Verified 04/09/20 14:09 vomiting Sulfa (Sulfonamide Allergy Unknown RASH Verified 04/09/20 14:09 Antibiotics) [SULFA (SULFONAMIDE ANTIBIOTICS)] Home Medications Medication Instructions Recorded Confirmed Type duloxetine 30 mg capsule,delayed 30 mg PO BID 01/08/20 04/09/20 History release hydroxyzine HCl 50 mg tablet 50 mg PO BEDTIME 01/08/20 04/09/20 History infusion set for insulin pump #2 ea 01/08/20 04/09/20 History multivitamin 1 cap PO DAILY 01/08/20 04/09/20 History topiramate 100 mg tablet 100 mg PO BEDTIME 01/08/20 04/09/20 History insulin lispro [Humalog U-100 0 unit SUBCUT DAILY PRN 02/10/20 04/09/20 History Insulin] celebrate calcium citrate 1 tab PO BID 04/09/20 04/09/20 History ondansetron 4 mg disintegrating 4 mg PO Q6-8H PRN 04/09/20 04/09/20 History tablet Exam Height,Weight and Vital Signs: Vital Signs Temp Pulse Resp BP Pulse Ox 04/14/20 08:08 97.8 F 84 16 105/73 100 Pertinent Lab Results Pertinent Lab Results: Lab Results 04/14/20 Range/Units 08:04 POC Glucose 112 (60-115) mg/dL Airway Mallampati Class: II TM Dist: >3cm Denture: Upper Partial: Lower Heart: RRR Lungs: CTAB Assessment and Plan Assessment Anesthesia Assessment: Anesthesia Plan Discussed and Chart Reviewed Final Anesthetic Review NPO: Yes ASA Class: III Final Preanesthetic Review: No Changes in Pt Med Stat, Meds/Allgs Chart Reviewed, Consent Obtained/Reviewed and Anes Risks/Benef Reviewed Patient Risk: Intermediate Procedure Risk: Low Assessment/Block/Sedation in SS: Assess/Block/Sedation-SS Anesthetic Plan Anesthetic Plan: MAC: Disposition: Standard PACU
--- NOTE | 2020-04-13 13:11 | MHC.SHP ---
Pre-Procedural Eval Section B Chief Complaint: gastrojejunal ulcer, Allergies: Allergies Allergy/AdvReac Type Severity Reaction Status Date / Time codeine [Codeine] Allergy Unknown N/V, Verified 04/09/20 14:09 vomiting Sulfa (Sulfonamide Allergy Unknown RASH Verified 04/09/20 14:09 Antibiotics) [SULFA (SULFONAMIDE ANTIBIOTICS)] Plan I have reviewed the history and physical and performed a pertinent physical examination on my patient. No changes have occurred unless specified.
[2020-04-14 08:07] LABS: Glucose, Whole Blood 112 mg/dL (60-115)
[2020-04-14 08:08] VITALS: BP 105/73; PULSE 84; RESP 16; TEMP 36.6; O2SAT 100
[2020-04-14] MEDS: 0.9 % Sodium Chloride 1,000 ML 50 ML IVCONT (08:48)
[2020-04-14 09:06] VITALS: BP 96/70; PULSE 82; RESP 12; TEMP 36.6; O2SAT 100
[2020-04-14 09:21] VITALS: BP 109/63; PULSE 70; RESP 16; TEMP 36.6; O2SAT 98
--- NOTE | 2020-04-14 09:43 | HO.POSTANES ---
Post Anesthesia Evaluation Post Anesthesia Evaluation Vital Signs: Vital Signs Temp Pulse Resp BP Pulse Ox 04/14/20 09:21 97.8 F 70 16 109/63 98 04/14/20 09:06 97.8 F 82 12 96/70 100 04/14/20 08:08 97.8 F 84 16 105/73 100 Anesthesia: Monitored Mental Status: Awake Pain Control: Satisfactory Nausea/Vomiting: None Hydration: Adequate Anesthesia-Related Issues: No Anes. Related Issues
--- NOTE | 2020-04-14 09:45 | OP_ITS ---
SURGEON: Audelia Castaneda MD PREOPERATIVE DIAGNOSIS: POSTOPERATIVE DIAGNOSIS: PROCEDURE PERFORMED: Esophagogastrojejunoscopy and enteroscopy to 90 cm from the incisors. ESTIMATED BLOOD LOSS: COMPLICATIONS: None. ANESTHESIA: Total intravenous anesthesia with propofol given by the nurse instrument lens inspector. ASSISTANTS: None. SPECIMENS: PREPROCEDURE DIAGNOSIS: Anastomotic marginal ulcer. POSTPROCEDURE DIAGNOSES: Small sliding hiatal hernia and significantly improved anastomotic marginal ulcer on the jejunal surface of the gastrojejunostomy. FINDINGS: Significantly improved anastomotic marginal ulcer and small sliding hiatal hernia. Otherwise, the gastric bypass anatomy was normal. DESCRIPTION OF PROCEDURE: The patient was brought into the operating room, placed on the stretcher in the left lateral decubitus position. A safety time-out was performed. A bite block was placed between the teeth. Total intravenous anesthesia was given by the nurse instrument lens inspector. Once the patient was adequately sedated, the gastroscope was placed into posterior oropharynx, passed down the esophagus, evaluating the esophageal mucosa which was normal. The GE junction was located at 36 cm from the incisors. The gastroscope was then passed into the gastric pouch. There was a small sliding hiatal hernia. The gastroscope was passed to the anastomosis, which was located at 44 cm from the incisors on the jejunal surface of the anastomosis. There was evidence of a significantly healed marginal ulcer, which appeared significantly better than the past 2 endoscopies. There was white slough on the anastomotic ulcer. There was no evidence of any active bleeding. The gastroscope was passed down the Efra limb to 90 cm from the incisors, all of which was normal. All these portions of the upper endoscopy were documented using photo documentation. The gastroscope was used to desufflate the stomach and the Efra limb was removed without difficulty. The patient did well during the procedure, was sent to the recovery room in stable condition. Audelia Castaneda MD UM/MODL / [id number]
--- NOTE | 2020-04-15 16:28 | PM.OP ---
Brief Operative Note Date of Service: 04/14/20 Pre-op diagnosis: Postop marginal ulcer status post gastric bypass Post-op diagnosis: other (Healing marginal ulcer at the anastomosis) Procedure: Esophagogastrojejunoscopy and enteroscopy to 90 cm from the incisors Implants: None Surgeon: Audelia Castaneda MD Anesthesia: MAC Estimated blood loss (mL): 0 Pathology: none sent Condition: stable Disposition: PACU
== END 2020-04-14 09:45 | disposition home or self-care (01) ==
PROVIDERS: PCP Internal Medicine; Visit Provider Surgery
PROC: 0DJ08ZZ Inspection of Upper Intestinal Tract, Via Natural or Artificial Opening Endoscopic (ICD-10-PCS; CPT 43235; principal; 2020-04-14 08:50)
DX: K28.9 Gastrojejunal ulcer, unspecified as acute or chronic, without hemorrhage or perforation (principal); Z98.84 Bariatric surgery status; Z98.0 Intestinal bypass and anastomosis status; K21.9 Gastro-esophageal reflux disease without esophagitis; K44.9 Diaphragmatic hernia without obstruction or gangrene; K58.9 Irritable bowel syndrome, unspecified; E11.9 Type 2 diabetes mellitus without complications; Z79.4 Long term (current) use of insulin; Z79.899 Other long term (current) drug therapy; Z87.891 Personal history of nicotine dependence; Z96.41 Presence of insulin pump (external) (internal)
CPT/HCPCS: 43235; 82947

== ENCOUNTER → 2020-05-13 10:34 | Outpatient (BNVA) | payer OTHER, SELFPAY | PROVIDERS: PCP Internal Medicine; Visit Provider Surgery ==

== ENCOUNTER → 2020-05-27 08:12 | Outpatient (BNVA) | payer OTHER, SELFPAY | PROVIDERS: PCP Internal Medicine; Visit Provider Surgery ==

== ENCOUNTER → 2020-07-02 08:09 | Outpatient (BNVA) | payer OTHER, SELFPAY | PROVIDERS: PCP Internal Medicine; Visit Provider Dietitian, Registered ==

== ENCOUNTER 2020-11-02 14:02 | Outpatient (REF) | payer OTHER, SELFPAY ==
--- NOTE | ~2020-11-02 | XR_ITS ---
EXAMINATION: XR RIBS, RIGHT CLINICAL INFORMATION: R07.89 - Other chest pain. COMPARISON: None TECHNIQUE: Frontal view chest and 3 views of the right ribs are obtained for 4 views. FINDINGS: The lungs are clear. There is no pneumothorax, pleural reaction, infiltrate, or effusion. The costophrenic sulci are well-defined. The heart is normal in size. The hilar and mediastinal contours are normal. The right ribs show no visible fracture or destructive process. Remainder of visualized bony structures are unremarkable. No free air beneath the diaphragms. No subcutaneous emphysema. XR/XR ribs RT min 3V w CXR1V IMPRESSION: Unremarkable examination.
== END 2020-11-02 14:03 | disposition home or self-care (01) ==
LOC: HO.HMGCX 14:02
PROVIDERS: PCP Internal Medicine; Visit Provider Nurse Practitioner Family
DX: R07.89 Other chest pain (principal)
CPT/HCPCS: 71101

== ENCOUNTER → 2020-12-07 08:54 | Outpatient (BNVA) | payer OTHER, SELFPAY | PROVIDERS: PCP Internal Medicine; Referring Provider Internal Medicine; Visit Provider Surgery | DX: Z01.818 Encounter for other preprocedural examination (principal); K91.2 Postsurgical malabsorption, not elsewhere classified; Z90.3 Acquired absence of stomach [part of] ==

== ENCOUNTER 2023-09-08 23:37 | Emergency (ER) | payer OTHER, SELFPAY ==
--- NOTE | ~2023-09-08 | CT_ITS ---
EXAMINATION: CT ABDOMEN AND PELVIS WITH CONTRAST CLINICAL INFORMATION: History abdominal pain patient within known history of gastric bypass COMPARISON: 02/10/2020 TECHNIQUE: Multidetector volumetric images were obtained from the superior aspect of the liver through the pubic symphysis following administration 85 mL of Omnipaque 350 intravenous contrast. Sagittal and coronal reformatted images were obtained on the technologist's workstation. Oral contrast: Small amount This CT examination was performed using dose optimization techniques as appropriate, variously including the following: *Automated exposure control *Adjustment of mA and/or kV according to patient size (this includes techniques or standardized protocols for targeted exams where dose is matched to indication/reason for exam; i.e. extremities or head) *Use of iterative reconstruction technique DLP: 380 mGy-cm FINDINGS: There is pneumoperitoneum seen surrounding liver and most likely extending from microperforation in the stomach is no free air is seen below the stomach through the abdomen. Given to patient small amount of oral contrast and revealed no definite active extravasation of contrast through the gastric pouch or any other places. Initially suspected area of fistulization adjacent to the suture line duplicated appearance of high attenuation material in comparison to February 2020. Maximum amount of air seen in the upper abdomen and seems to be extending between the liver and gastric pouch in images 31/98-36/98, not associated with contrast extravasation is seen in place. The amount of pneumoperitoneum of the considered moderate. LUNG BASES: The visualized lung bases are unremarkable. LIVER, GALLBLADDER, AND BILIARY TREE: The liver is normal in size, shape, and attenuation. No focal hepatic lesion or biliary ductal dilatation is present. The gallbladder is unremarkable with no evidence of radiopaque gallstones, gallbladder wall thickening, or obvious pericholecystic inflammatory changes. PANCREAS: Unremarkable. SPLEEN: Unremarkable. ADRENAL GLANDS: Unremarkable. KIDNEYS AND URETERS: The kidneys are normal in size, shape, and attenuation. No hydronephrosis, hydroureter, or calculi seen. No perinephric stranding. BLADDER: Unremarkable. GASTROINTESTINAL TRACT: Need addition to the described postsurgical changes in perforation there are no abnormal findings in the colon or small bowel is small amount of ascites is along the right flank and appendix is unremarkable. ABDOMINAL WALL: No significant hernia is appreciated. LYMPH NODES: Normal. VASCULAR: Unremarkable. PELVIC VISCERA: Patient is status post hysterectomy OSSEOUS STRUCTURES: Unremarkable. CT/CT abdomen pelvis w IV con IMPRESSION: Moderate pneumoperitoneum most likely due to microperforation in the stomach. No evidence of active extravasation of oral contrast. Small amount of ascites along the right flank. Images reviewed with Dr. Sanchez at 9:25 AM on 09/09/2023 Fleischner guidelines were followed.
--- NOTE | ~2023-09-08 | CT_ITS ---
EXAMINATION: CT ANGIOGRAM OF THE CHEST WITH AND WITHOUT CONTRAST (CT PULMONARY ANGIOGRAM FOR PE) CLINICAL INFORMATION: Reason for Exam Sudden onset left pleuritic pain, rule out PE COMPARISON: None available. TECHNIQUE: Prior to contrast administration, noncontrast localization images were obtained. Subsequently, multidetector volumetric imaging was performed from the thoracic inlet to below the diaphragms following the administration of 65 mL Omnipaque 350 intravenous contrast. No contrast reaction reported Sagittal, coronal, and MIP oblique sagittal reformatted images were obtained on the CT workstation, uploaded to PACS, and reviewed. This CT examination was performed using dose optimization techniques as appropriate, variously including the following: *Automated exposure control *Adjustment of mA and/or kV according to patient size (this includes techniques or standardized protocols for targeted exams where dose is matched to indication/reason for exam; i.e. extremities or head) *Use of iterative reconstruction technique Total exam dose-length product 141 mGy-cm FINDINGS: QUALITY OF STUDY/CONTRAST BOLUS: Satisfactory. PULMONARY ARTERIES: No pulmonary emboli. THORACIC AORTA: No aneurysm or dissection. LUNG: No regions of consolidation bilaterally. A couple calcified granulomas are noted. PLEURA: No pleural effusion or pneumothorax. MEDIASTINUM: The visualized thyroid gland is unremarkable. Small hiatal hernia. There are subcentimeter mediastinal lymph nodes within the range of normal variation. Cardiac size is within normal limits; no pericardial effusion. No evidence of septal bowing or right heart strain. CORONARY ARTERY CALCIFICATION: Present CHEST WALL/AXILLA: No axillary or internal mammary lymphadenopathy. OSSEOUS STRUCTURES: Subacute appearing fracture of the manubrium. A few subacute appearing bilateral rib fractures are also noted. UPPER ABDOMEN: Small amount of pneumoperitoneum. Trace perihepatic fluid. Postoperative changes of the stomach. Possible colonic wall thickening in the left upper quadrant, suboptimally assessed due to collapsed. No reflux of contrast into the hepatic veins to suggest elevated right heart pressures. CT/CT angio chest PE protocol IMPRESSION: 1. No pulmonary embolus identified. 2. Small amount of pneumoperitoneum and trace perihepatic fluid, most consistent with perforated viscus in the absence of recent abdominal surgery. Possible colonic wall thickening in the left upper quadrant, suboptimally assessed due to collapsed. 3. Subacute appearing fracture of the manubrium. A few subacute appearing bilateral rib fractures are also noted. VTE: negative. This critical result was discussed with Dr. Pollard on 09/09/2023 6:21 AM, and it was ascertained that the content and urgency of the report was understood at the time of direct communication.
--- NOTE | ~2023-09-08 | XR_ITS ---
EXAMINATION: XR PORTABLE CHEST CLINICAL INFORMATION: Chest pain COMPARISON: 11/29/2020 TECHNIQUE: AP portable (c) view of the chest FINDINGS: Lungs are clear. No consolidation, pneumothorax, or pleural effusion. Cardiac and mediastinal contours are normal. Pulmonary vasculature is unremarkable. Osseous structures are unremarkable. XR/XR chest 1V IMPRESSION: No acute cardiopulmonary findings
[2023-09-08 23:41] VITALS: BP 113/60; BP 117/60; PULSE 60; PULSE 63; RESP 16; TEMP 37.1; O2SAT 98; BMI 19.4
--- NOTE | 2023-09-08 23:41 | ECG_ITS ---
Test Reason : CHEST PAIN Blood Pressure : / mmHG Vent. Rate : 062 BPM Atrial Rate : 062 BPM P-R Int : 158 ms QRS Dur : 080 ms QT Int : 444 ms P-R-T Axes : 039 058 056 degrees QTc Int : 450 ms Normal sinus rhythm Cannot rule out Anterior infarct , age undetermined Abnormal ECG When compared with ECG of 21-NOV-2019 11:15, No significant change was found Referred By: Generic ED Physician Electronically Signed By:JASMINE COATS MD
[2023-09-09] VITALS (10 sets, daily range): BP systolic 89–106; BP diastolic 46–56; PULSE 67–76; RESP 13–18; TEMP 37–37.4; O2SAT 96–98
[2023-09-09 00:08] LABS: Basophils Percent Auto 0.6 % (0-2); Eosinophils Absolute Auto 0.1 X10*3/uL (0.0-0.4); Eosinophils Percent Auto 2.5 % (0-4); Hematocrit 28.9 % (37.0-47.0); Hemoglobin 9.2 g/dl (12.0-16.0); Imm Gran Abs Auto 0.02 X10*3/uL (0.00-0.03); Imm Gran Pct Auto 0.4 % (0.0-0.4); Lymphocytes Absolute Auto 1.7 X10*3/uL (1.2-4.9); Lymphocytes Percent Auto 35.8 % (20-40); MANUAL DIFF FLAG NO; Mean Corpuscular HGB Conc 31.8 g/dl (31.0-35.0); Mean Corpuscular Hemoglobin 30.1 pg (27.0-33.0); Mean Corpuscular Volume 94.4 fL (80.0-98.0); Mean Platelet Volume 9.9 fL (9.4-12.3); Monocytes Absolute Auto 0.4 X10*3/uL (0.1-1.2); Monocytes Percent Auto 7.9 % (2-11); Neutrophils Absolute Auto 2.5 x10*3/uL (2.0-8.3); Neutrophils Percent Auto 52.8 % (45-73); Platelet Count 250 X10*3/uL (160-400); Red Blood Count 3.06 X10*6/uL (4.20-5.50); Red Cell Distribution Width 12.5 % (11.0-16.0); White Blood Count 4.8 X10*3/uL (4.8-10.8)
[2023-09-09 00:23] LABS: Alanine Aminotransferase 27 U/L (0-31); Albumin Level 2.9 g/dL (3.5-5.0); Alkaline Phosphatase 139 U/L (39-117); Anion Gap 8 (12-20); Aspartate Amino Transferase 26 U/L (5-31); Bilirubin Total 0.2 mg/dL (0.0-1.0); Blood Urea Nitrogen 12 mg/dL (9-16); Calcium 8.2 mg/dL (8.4-10.2); Carbon Dioxide 22 mmol/L (22-29); Chloride 114 mmol/L (96-108); Creatinine Clr Calc Pharmacy 67.9; Estimated Glomerular Filt Rate > 60; Glucose Random 310 mg/dL (60-115); Potassium 4.3 mmol/L (3.3-5.1); Sodium 140 mmol/L (135-145); Total Protein 5.4 g/dL (6.5-8.0)
[2023-09-09 00:29] LABS: B Type Natriuretic Peptide 145 pg/mL (<100)
[2023-09-09 00:43] LABS: Troponin-I High Sensitivity < 2.7 ng/L (<3.5-17.0)
[2023-09-09 00:58] LABS: Glucose, Whole Blood 248 mg/dL (60-115)
--- NOTE | 2023-09-09 02:08 | ED_ITS ---
HPI - Chest Pain General Chief Complaint: Chest Pain Stated Complaint: CHEST PAIN Time Seen by Provider: 09/09/23 02:07 Source: patient Mode of arrival: EMS Limitations: no limitations History of Present Illness ED Provider: Dr. Stoney Pollard HPI narrative: 48-year-old female history of diabetes mellitus, IBS, GERD, gastric bypass surgery with malabsorption syndrome who presents emergency department for evaluation of sudden onset of left-sided chest pain and left shoulder pain. The patient states that she was watching television around 23:00 hours when she had a sudden onset of left shoulder and left chest pain. She describes the pain is stabbing sensation which was worse with breathing. She did feel short of breath. She states that the pain is been constant since onset. The pain is currently 8/10 at its worst. This is a 1st episode of this type pain. She denied fever, chills, rhinorrhea, sore throat, cough. She states she has had diarrhea for the past 2 days. Patient states the pain was severe therefore she called an ambulance was brought to emergency department for evaluation. Patient denies recent travel. She does have chronic lower extremity edema and is on diuretics, she states that her edema is unchanged. Related Data Home Medications ?Medication ?Instructions ?Recorded ?Confirmed duloxetine 30 mg capsule,delayed 30 mg PO BID 01/08/20 12/07/20 release (Cymbalta) hydroxyzine HCl 50 mg tablet 50 mg PO BEDTIME 01/08/20 12/07/20 infusion set for insulin pump #2 ea 01/08/20 12/07/20 topiramate 100 mg tablet (Topamax) 100 mg PO BEDTIME 01/08/20 12/07/20 insulin lispro 100 unit/mL 0 unit subcut DAILY PRN INSULIN 02/10/20 12/07/20 subcutaneous solution (Humalog PUMP REFILL U-100 Insulin) celebrate calcium citrate 1 tab PO BID 04/09/20 12/07/20 ondansetron 4 mg disintegrating 4 mg PO Q6-8H PRN 04/09/20 12/07/20 tablet dicyclomine 10 mg capsule 10 mg PO TID 12/07/20 12/07/20 refudc-dayrfyja-utzpmcf 1 cap PO BID 12/07/20 12/07/20 40,000-126,000-168,000 unit capsule, delay rel (Zenpep) dscaqhuy-klygltra-srty 45 mg-folic cap PO DAILY 12/07/20 12/07/20 acid 800 mcg-vit K 120 mcg capsule (Bariatric Multivitamins) Previous Rx's ?Medication ?Instructions ?Recorded cyclobenzaprine 5 mg tablet 5 mg PO TID PRN muscle spasm #15 11/02/20 tabs lidocaine 5 % topical patch 1 patch topical DAILY #15 ea 11/02/20 ondansetron HCl 4 mg tablet 4 mg PO Q6H PRN nausea and 12/07/20 (Zofran) vomiting #30 tabs pantoprazole 40 mg tablet,delayed 40 mg PO BID #60 tabs 12/07/20 release pantoprazole 40 mg tablet,delayed 40 mg PO DAILY #60 tabs 03/03/21 release Allergies Allergy/AdvReac Type Severity Reaction Status Date / Time codeine [Codeine] Allergy Unknown N/V, Verified 09/08/23 23:45 vomiting Sulfa (Sulfonamide Allergy Unknown RASH Verified 09/08/23 23:45 Antibiotics) [SULFA (SULFONAMIDE ANTIBIOTICS)] Review of Systems 2 Review of Systems: Yes all other systems are reviewed and are negative [facility] Past Medical History [facility] Narrative: Social history: Patient is a former smoker and stop smoking 1989 12. She states she does have a history of alcohol use disorder but he is in recovery in his been sober for 90 days. She does not smoke marijuana. Medical History Exocrine pancreatic insufficiency Stage 3 chronic kidney disease due to type 1 diabetes mellitus PONV (postoperative nausea and vomiting) History of depression History of anxiety Intestinal malabsorption following gastrectomy Anemia Hiatal hernia GERD (gastroesophageal reflux disease) Diarrhea Hyperglycemia Malabsorption due to intolerance, not elsewhere classified Overweight (BMI 25.0-29.9) Insulin dependent diabetes mellitus Hypertension Chronic migraine w/o aura w/o status migrainosus, not intractable Surgical History Hx of esophagogastroduodenoscopy History of Efra-en-Y gastric bypass History of total abdominal hysterectomy History of repair of hiatal hernia S/P laparoscopic sleeve gastrectomy History of Family History Family History Father Type 2 diabetes mellitus HTN (hypertension) Mother Obesity History of breast cancer Daughter No problems noted. Brother No problems noted. Son No problems noted. Social History Social History Household Members: Unknown / Unable to assess Housing: House Unable to assess alcohol history related to: Unknown Alcohol intake: current Alcohol intake frequency: does not drink Smoked in Last 30 Days: No Second Hand Smoke Exposure: No Use of substances other than those prescribed or required for medical reasons: No Substance Use Type: Marijuana Advance Directives: No Advance Directives Information Provided: No service: No Current occupational status: employed Physical Exam 2 Vital Signs: Vital Signs: Last Vital Signs Temp 98.7 F 09/09/23 06:02 Pulse 75 09/09/23 07:23 Resp 15 09/09/23 07:23 BP 106/56 L 09/09/23 07:23 Pulse Ox 97 09/09/23 07:23 O2 Del Method Room Air 09/09/23 07:23 BMI result Body Mass Index 19.4 Vital signs were unremarkable Exam: General: Awake, alert in no distress Head: Normocephalic, atraumatic EENT: PERRL, Lids normal, sclera normal, conjunctiva normal, nose normal , ears normal, throat without erythema or exudates Neck: Supple, no adenopathy Lung: breath sounds symmetric, no wheezing, rales or rhonchi Chest: symmetric movement, nontender Heart: regular rate and rhythm, normal S1, S2 no murmurs or rubs Abdomen: soft, mild epigastric pain, no rebound, no voluntary or involuntary guarding, normoactive bowel sounds Back: no vertebral tenderness, no CVAT Extremities: Trace to 1+ pitting edema bilaterally symmetric Neuro: Awake, alert, oriented, normal speech, cranial nerves intact, moves all extremities symmetrically Psych: Pleasant, cooperative Medications Administered Discontinued Medications Generic Name Dose Route Start Last Admin Trade Name Freq PRN Reason Stop Dose Admin Hydromorphone HCl 1 mg 09/09/23 07:28 09/09/23 07:36 Hydromorphone Hcl 1 Mg/Ml Syringe IVPUSH 09/09/23 07:29 1 mg ONCE STA Administration Protocol Piperacillin Sod/Tazobactam 100 mls @ 200 mls/hr 09/09/23 06:27 09/09/23 07:29 Sod 4.5 gm/ Sodium Chloride IV 09/09/23 06:56 200 mls/hr ONCE ONE Administration Lactated Ringer's 1,000 mls @ 999 mls/hr 09/09/23 06:45 09/09/23 07:33 Lr IV 09/09/23 07:45 999 mls/hr .Q1H1M KEHINDE Administration Iohexol 65 ml 09/09/23 03:37 09/09/23 03:37 Iohexol 350 Mg/Ml 100 Ml Infus..Btl IV 09/09/23 03:38 65 ml ONCE ONE Administration Ketorolac Tromethamine 15 mg 09/09/23 02:30 09/09/23 03:15 Ketorolac Tromethamine 15 Mg/Ml Vial IVPUSH 09/09/23 02:31 15 mg ONCE STA Administration Morphine Sulfate 4 mg 09/09/23 06:27 09/09/23 06:41 Morphine Sulfate 4 Mg/Ml Cartridge IVPUSH 09/09/23 06:28 4 mg ONCE STA Administration Protocol Ondansetron HCl 4 mg 09/09/23 06:34 09/09/23 06:41 Ondansetron Hcl 4 Mg/2 Ml Vial IVPUSH 09/09/23 06:35 4 mg ONCE ONE Administration Medical Decision Making Medical Decision Making MDM Narrative: 48-year-old female history of diabetes mellitus, IBS, GERD, gastric bypass surgery with malabsorption syndrome who presents emergency department for evaluation of sudden onset of left-sided chest pain and left shoulder pain which began at 23:00 hours, it has been constant, worse with breathing and with movement, sharp, 8/10 at its worse, 1st episode of this type of pain. Patient has a history of bilateral lower extremity edema which she states is not gotten worse and she is on diuretics. Vital signs were normal. Physical examination was consistent with pitting edema otherwise unremarkable. Differential diagnosis: ?Includes but is not limited to myocardial infarction, myocardial ischemia, pulmonary embolism, pleurisy, costochondritis, congestive heart failure, pneumonia, electrolyte abnormalities, anemia Following evaluation was ordered: CBC, CMP, BNP, chest x-ray, EKG, troponin, chest x-ray, CT pulmonary angiogram PE protocol Course: 02:40 My interpretation patient's laboratory evaluation as follows: Normocytic anemia with an H&H of 9.2 and 28.9-this is chronic. Elevated glucose 310. Elevated alk-phos 139. Troponin was below detectable limits. The patient's 12 EKG revealed no acute findings. Chest x-ray was unremarkable. Patient's sudden onset of symptoms is concerning for pulmonary embolism therefore I ordered a CT pulmonary angiogram PE protocol, D-dimer and PTT. Patient will also get a repeat 3 hour troponin. I ordered troponin 15 mg IV. 06:33 Patient's D-dimer was elevated 834. PTT was normal CT scan of the chest angiogram of the pulmonary artery PE protocol did not reveal any PE but radiologist did note a ?small amount of pneumoperitoneum and trace perihepatic fluid, mos consistent with perforated viscus and possible colonic wall thickening in the left upper quadrant, suboptimally assessed due to collapsed. Given this finding, patient most likely has a perforated viscus as the cause of her pain. I ordered blood cultures x2, lactic acid, morphine 4 mg IV, Zofran 4 mg IV, Zosyn 4.5 g IV, lactated Ringer's x1 L. I will discuss this finding with bariatric surgery to determine if they want further studies and disposition. 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 Audelia Castaneda and Dr. Castaneda did her initial surgery. Dr. Briceno is at [facility]. I did speak to the on-call surgeon at [facility], dr. Alix Altamirano and she has not a bariatric surgeon. Also, [facility] has no bed capacity and can not accept the patient in transfer. I did speak to our bariatric physician production assistant, Man Sanchez. After our discussion, I ordered a CT scan of the abdomen pelvis with oral contrast to the upper abdomen only and IV contrast. Patient had increased pain and was given Dilaudid 1 mg IV, lactated Ringer's x1 L and Zofran 4 mg IV. 08:39 I did speak to the bariatric physician production assistant, Man sanchez again and he would like to wait for the CT scan results to determine disposition on this patient. The patient came back from CT scan and had increased abdominal pain therefore I ordered Dilaudid 1 mg IV. At the end of my shift, patient's care was turned over to my colleague, Dr. Lane. Admission/Observation Consideration of admission/observation: Escalation of care including admission/observation considered Lab Data MDM Lab Attestation statement: I reviewed the patient's lab results. 09/09/23 00:03 09/09/23 00:03 Labs: Lab Results 09/08/23 09/09/23 09/09/23 Range/Units 23:53 00:03 03:01 WBC 4.8 (4.8-10.8) X10*3/uL RBC 3.06 L (4.20-5.50) X10*6/uL Hgb 9.2 L (12.0-16.0) g/dl Hct 28.9 L (37.0-47.0) % MCV 94.4 (80.0-98.0) fL MCH 30.1 (27.0-33.0) pg MCHC 31.8 (31.0-35.0) g/dl RDW 12.5 (11.0-16.0) % Plt Count 250 (160-400) X10*3/uL MPV 9.9 (9.4-12.3) fL Immature Gran % (Auto) 0.4 (0.0-0.4) % Neut % (Auto) 52.8 (45-73) % Lymph % (Auto) 35.8 (20-40) % Beauregard % (Auto) 7.9 (2-11) % Eos % (Auto) 2.5 (0-4) % Baso % (Auto) 0.6 (0-2) % Lymph # (Auto) 1.7 (1.2-4.9) X10*3/uL Beauregard # (Auto) 0.4 (0.1-1.2) X10*3/uL Eos # (Auto) 0.1 (0.0-0.4) X10*3/uL Baso # (Auto) 0.0 (0.0-0.2) X10*3/uL Abs Immat Gran (auto) 0.02 (0.00-0.03) X10*3/uL Absolute Neuts (auto) 2.5 (2.0-8.3) x10*3/uL Absolute Nucleated RBC 0.000 (0.0-0.012) X10*3/uL Nucleated RBC % (auto) 0.0 (0.0-0.2) /100WBC APTT 25.2 L (26.0-36.8) SEC D-Dimer High Sensitivty 834 NG/ML Sodium 140 (135-145) mmol/L Potassium 4.3 (3.3-5.1) mmol/L Chloride 114 H (96-108) mmol/L Carbon Dioxide 22 (22-29) mmol/L Anion Gap 8 L (12-20) BUN 12 (9-16) mg/dL Creatinine 0.82 (0.5-1.4) mg/dL Estim Creat Clear Calc 67.9 Estimated GFR > 60 POC Glucose 248 H (60-115) mg/dL Random Glucose 310 H (60-115) mg/dL Lactic Acid (0.5-2.0) mmol/L Calcium 8.2 L (8.4-10.2) mg/dL Total Bilirubin 0.2 (0.0-1.0) mg/dL AST 26 (5-31) U/L ALT 27 (0-31) U/L Alkaline Phosphatase 139 H (39-117) U/L Troponin I High Sens < 2.7 < 2.7 (<3.5-17.0) ng/L B-Natriuretic Peptide 145 H (<100) pg/mL Total Protein 5.4 L (6.5-8.0) g/dL Albumin 2.9 L (3.5-5.0) g/dL 09/09/23 Range/Units 06:51 WBC (4.8-10.8) X10*3/uL RBC (4.20-5.50) X10*6/uL Hgb (12.0-16.0) g/dl Hct (37.0-47.0) % MCV (80.0-98.0) fL MCH (27.0-33.0) pg MCHC (31.0-35.0) g/dl RDW (11.0-16.0) % Plt Count (160-400) X10*3/uL MPV (9.4-12.3) fL Immature Gran % (Auto) (0.0-0.4) % Neut % (Auto) (45-73) % Lymph % (Auto) (20-40) % Beauregard % (Auto) (2-11) % Eos % (Auto) (0-4) % Baso % (Auto) (0-2) % Lymph # (Auto) (1.2-4.9) X10*3/uL Beauregard # (Auto) (0.1-1.2) X10*3/uL Eos # (Auto) (0.0-0.4) X10*3/uL Baso # (Auto) (0.0-0.2) X10*3/uL Abs Immat Gran (auto) (0.00-0.03) X10*3/uL Absolute Neuts (auto) (2.0-8.3) x10*3/uL Absolute Nucleated RBC (0.0-0.012) X10*3/uL Nucleated RBC % (auto) (0.0-0.2) /100WBC APTT (26.0-36.8) SEC D-Dimer High Sensitivty NG/ML Sodium (135-145) mmol/L Potassium (3.3-5.1) mmol/L Chloride (96-108) mmol/L Carbon Dioxide (22-29) mmol/L Anion Gap (12-20) BUN (9-16) mg/dL Creatinine (0.5-1.4) mg/dL Estim Creat Clear Calc Estimated GFR POC Glucose (60-115) mg/dL Random Glucose (60-115) mg/dL Lactic Acid 1.0 (0.5-2.0) mmol/L Calcium (8.4-10.2) mg/dL Total Bilirubin (0.0-1.0) mg/dL AST (5-31) U/L ALT (0-31) U/L Alkaline Phosphatase (39-117) U/L Troponin I High Sens (<3.5-17.0) ng/L B-Natriuretic Peptide (<100) pg/mL Total Protein (6.5-8.0) g/dL Albumin (3.5-5.0) g/dL Independent Interpretation I performed an independent interpretation of an: Plain X-Ray Interpretation: My interpretation patient's one-view chest x-ray is as follows: No acute disease My interpretation patient's 12 EKG done at 23:47 hours is as follows: Normal sinus rhythm rate of 62, normal TX interval, QRS duration QTC interval, no ST segment elevation, no ST segment depression, no PACs, no PVCs, no significant T- wave abnormalities, poor R-wave progression V1 through V3. Compared to EKG dated 11/21/2019 the poor R-wave progression is old Radiology Impression Discussion of test interpretation with radiology: I discussed test interpretation with the radiologist and I have reviewed the radiologist's reading. Radiologist Impression: CT angio chest PE protocol IMPRESSION: 1. No pulmonary embolus identified. 2. Small amount of pneumoperitoneum and trace perihepatic fluid, most consistent with perforated viscus in the absence of recent abdominal surgery. Possible colonic wall thickening in the left upper quadrant, suboptimally assessed due to collapsed. 3. Subacute appearing fracture of the manubrium. A few subacute appearing bilateral rib fractures are also noted. VTE: negative. This critical result was discussed with Dr. Pollard on 09/09/2023 6:21 AM, and it was ascertained that the content and urgency of the report was understood at the time of direct communication. Dictated By: Julio Skaggs MD Signed By: <Electronically signed by Julio Skaggs MD in OV> 09/09/23 0624 XR chest 1V IMPRESSION: No acute cardiopulmonary findings Dictated By: Arsen Saleem MD Independent Historian Clinical information obtained from an independent historian. History obtained from or confirmed by: Spouse Chronic Conditions Patient?s care impacted by: Diabetes Critical Care Time Critical Care Time Critical Care Time: Yes Total Critical Care Time: 80 Attestation: Critical Care: The patient was critically ill with a high probability of imminent or life threatening deterioration. I spent greater than 30 minutes of discontinuous time evaluating the patient,delivering critical care at the bedside, discussing and evaluating pertinent data with consultants. Critical care time does not include time spent performing separately billable procedures or teaching. Total time spent performing critical care was 80 minutes. Discharge Plan Discharge Clinical Impression: Perforated abdominal viscus Chest pain Qualifiers: Chest pain type: unspecified Qualified Code(s): R07.9 - Chest pain, unspecified Patient Disposition: Still a Patient Prescriptions: No Action lidocaine 5 % adhesive patch,medicated 1 patch topical DAILY Qty: 15 0RF Rx Instructions: leave on most painful area for up to 12 hrs pantoprazole 40 mg tablet,delayed release (DR/EC) 40 mg PO DAILY Qty: 60 6RF insulin lispro [Humalog U-100 Insulin] 100 unit/mL Solution 0 unit SUBCUT DAILY PRN (Reason: INSULIN PUMP REFILL) cyclobenzaprine 5 mg tablet 5 mg PO TID PRN (Reason: muscle spasm) Qty: 15 0RF dicyclomine 10 mg capsule 10 mg PO TID Zenpep 40,000-126,000- 168,000 unit capsule,delayed release(DR/EC) 1 cap PO BID Rx Instructions: administer with meals and/or snacks Bariatric Multivitamins 45 mg iron- 800 mcg-120 mcg capsule PO DAILY pantoprazole 40 mg tablet,delayed release (DR/EC) 40 mg PO BID Qty: 60 0RF ondansetron HCl [Zofran] 4 mg tablet 4 mg PO Q6H PRN (Reason: nausea and vomiting) Qty: 30 3RF topiramate [Topamax] 100 mg tablet 100 mg PO BEDTIME (DME) infusion set for insulin pump Infusion Set See Rx Instructions .ROUTE .MEDSUPPLY Qty: 2 Rx Instructions: As directed hydroxyzine HCl 50 mg tablet 50 mg PO BEDTIME Hold Instructions: hold duloxetine [Cymbalta] 30 mg capsule,delayed release(DR/EC) 30 mg PO BID ondansetron 4 mg tablet,disintegrating 4 mg PO Q6-8H PRN celebrate calcium citrate 1 tab PO BID Print Language: Nicaraguan
[2023-09-09 03:14] LABS: D Dimer High Sensitivity 834 NG/ML; Partial Thromboplastin Time 25.2 SEC (26.0-36.8)
[2023-09-09] MEDS: Ketorolac Tromethamine 15 MG/ML VIAL IVPUSH (03:15)
[2023-09-09 03:28] LABS: Troponin-I High Sensitivity < 2.7 ng/L (<3.5-17.0)
[2023-09-09] MEDS: iohexoL 350 MG/ML 100 ML INFUS..BTL 65 ML IV (03:37)
--- NOTE | 2023-09-09 06:23 | PC.NURSE ---
pt reports cp return with 9/10 intensity. no radiation. pt reports nausea. nsr on monitor. MD aware.
[2023-09-09] MEDS: ondansetron HCL 4 MG/2 ML VIAL IVPUSH (06:41)
[2023-09-09] MEDS: Morphine Sulfate 4 MG/ML CARTRIDGE IVPUSH (06:41)
[2023-09-09] MEDS: Piperacillin Sodium/Tazobactam 4.5 GM in 0.9 % Sodium Chloride 100 ML IV ×3 (07:29→19:46)
[2023-09-09] MEDS: Lactated Ringers 1,000 ML 999 ML IV ×2 (07:33→17:31)
[2023-09-09] MEDS: HYDROmorphone HCl 1 MG/ML SYRINGE IVPUSH ×4 (07:36→18:40)
--- NOTE | 2023-09-09 07:38 | PC.NURSE ---
this RN resumed care of pt at 0700. a&ox4. vss and up to date. nsr on the civil manager. pt spoke w/ ED provider/aware of plan of care at this time. pt verbalizing pain level is a 8/10 despite medication administration. pt medicated per provider order. IVF infusing at this time. CT bedside explaining oral contrast. pt waiting to go to CT at this time. no sob/wob noted. respirations even/unlabored. plan of care ongoing. call crawford placed within reach.
[2023-09-09] MEDS: iohexoL 350 MG/ML 100 ML INFUS..BTL IV (08:34)
[2023-09-09] MEDS: Diatrizoate Meglumine, Sodium 30 ML SOLUTION PO (08:35)
--- NOTE | 2023-09-09 09:20 | PC.NURSE ---
pt remedicated d/t pain level staying the same despite previous administration. effectiveness pending. CT results pending at this time.
--- NOTE | 2023-09-09 11:51 | PM.CNGS ---
History of Present Illness Consult details Consult date: 09/09/23 Reason for consult: abdominal pain Narrative: 48 yo female w hx multiple bariatric surgeries; sleeve gastrectomy w hiatal hernia repair 2017, redo of hiatal hernia repair w gastropexy 2017, conversion of LSG to GBP in 2019 due to persistent GERD. Admitted to [facility] 01/28/20-03/24/20 for anastomotic ulcer. Pts primary bariatric surgeon, Dr Castaneda moved to [facility] and pt followe her there and has not been seen in [facility] since 12/2020. Developed sudden LLQ abdominal pain and CP last night while watching TV at approximately 1030. Called EMS and requested [facility] but EMS felt that if it was cardiac [facility] was closer hospital. W/U in ER, cardic troponins neg, CTA neg PE but positive small pneumoperitoneum. No leukosytosis, lactic acidosis, electrolyte derrangement or s/sx of sepsis. Our service was then contacted. Discussed case with attending Dr Loyola and pt was then sent for abd CT w IV contrast and some oral to determine if extravasation. Abd CT pos for moderate pneumoperitoneum but no definite extravasation and CT contrast appeared similar previous study from 2019. Discussed case with [facility] covering surgeon for possible transfer and no bariatric surgeon available at [facility] today. [facility] Past Medical History Medical History Exocrine pancreatic insufficiency Stage 3 chronic kidney disease due to type 1 diabetes mellitus PONV (postoperative nausea and vomiting) History of depression History of anxiety Intestinal malabsorption following gastrectomy Anemia Hiatal hernia GERD (gastroesophageal reflux disease) Diarrhea Hyperglycemia Malabsorption due to intolerance, not elsewhere classified Overweight (BMI 25.0-29.9) Insulin dependent diabetes mellitus Hypertension Chronic migraine w/o aura w/o status migrainosus, not intractable Family History Family History Father Type 2 diabetes mellitus HTN (hypertension) Mother Obesity History of breast cancer Daughter No problems noted. Brother No problems noted. Son No problems noted. Surgical History Surgical History Hx of esophagogastroduodenoscopy History of Efra-en-Y gastric bypass History of total abdominal hysterectomy History of repair of hiatal hernia S/P laparoscopic sleeve gastrectomy History of Social History Social History Household Members: Unknown / Unable to assess Housing: House Unable to assess alcohol history related to: Unknown Alcohol intake: current Alcohol intake frequency: does not drink Smoked in Last 30 Days: No Second Hand Smoke Exposure: No Use of substances other than those prescribed or required for medical reasons: No Substance Use Type: Marijuana Advance Directives: No Advance Directives Information Provided: No service: No Current occupational status: employed Meds Allergies Allergy/AdvReac Type Severity Reaction Status Date / Time codeine [Codeine] Allergy Unknown N/V, Verified 09/08/23 23:45 vomiting Sulfa (Sulfonamide Allergy Unknown RASH Verified 09/08/23 23:45 Antibiotics) [SULFA (SULFONAMIDE ANTIBIOTICS)] Active Medications: Current Medications Pantoprazole Sodium 80 mg/ (Sodium Chloride) 100 mls @ 10 mls/hr IV .Q10H KEHINDE Home Medications ?Medication ?Instructions ?Recorded ?Confirmed ?Last Taken ?Type duloxetine 30 mg capsule,delayed 30 mg PO BID 01/08/20 12/07/20 01/26/20 History release (Cymbalta) 30 hydroxyzine HCl 50 mg tablet 50 mg PO BEDTIME 01/08/20 12/07/20 01/26/20 History 50 infusion set for insulin pump #2 ea 01/08/20 12/07/20 Unknown History topiramate 100 mg tablet (Topamax) 100 mg PO BEDTIME 01/08/20 12/07/20 01/26/20 History insulin lispro 100 unit/mL 0 unit subcut DAILY PRN INSULIN 02/10/20 12/07/20 Unknown History subcutaneous solution (Humalog PUMP REFILL U-100 Insulin) celebrate calcium citrate 1 tab PO BID 04/09/20 12/07/20 Unknown History ondansetron 4 mg disintegrating 4 mg PO Q6-8H PRN 04/09/20 12/07/20 Unknown History tablet dicyclomine 10 mg capsule 10 mg PO TID 12/07/20 12/07/20 Unknown History qsaicb-oyrmtfjb-yrswbnh 1 cap PO BID 12/07/20 12/07/20 Unknown History 40,000-126,000-168,000 unit capsule, delay rel (Zenpep) glflcjuo-vmvmqopi-fbyz 45 mg-folic cap PO DAILY 12/07/20 12/07/20 Unknown History acid 800 mcg-vit K 120 mcg capsule (Bariatric Multivitamins) Physical Exam Vital Signs: Vital Signs: Last Vital Signs Temp 99.3 F 09/09/23 10:40 Pulse 76 09/09/23 10:40 Resp 16 09/09/23 10:40 BP 100/52 L 09/09/23 10:40 Pulse Ox 97 09/09/23 10:40 O2 Del Method Room Air 09/09/23 10:40 BMI result Body Mass Index 19.4 Results Labs 09/09/23 00:03 09/09/23 00:03 Labs: Abnormal lab results 09/08/23 09/09/23 09/09/23 Range/Units 23:53 00:03 03:01 RBC 3.06 L (4.20-5.50) X10*6/uL Hgb 9.2 L (12.0-16.0) g/dl Hct 28.9 L (37.0-47.0) % APTT 25.2 L (26.0-36.8) SEC Chloride 114 H (96-108) mmol/L Anion Gap 8 L (12-20) POC Glucose 248 H (60-115) mg/dL Random Glucose 310 H (60-115) mg/dL Calcium 8.2 L (8.4-10.2) mg/dL Alkaline Phosphatase 139 H (39-117) U/L B-Natriuretic Peptide 145 H (<100) pg/mL Total Protein 5.4 L (6.5-8.0) g/dL Albumin 2.9 L (3.5-5.0) g/dL Short CBC 09/09/23 Range/Units 00:03 WBC 4.8 (4.8-10.8) X10*3/uL Hgb 9.2 L (12.0-16.0) g/dl Hct 28.9 L (37.0-47.0) % Plt Count 250 (160-400) X10*3/uL BMP 09/09/23 00:03 Sodium 140 Potassium 4.3 Chloride 114 H Carbon Dioxide 22 BUN 12 Creatinine 0.82 Calcium 8.2 L Liver Function 09/09/23 Range/Units 00:03 Total Bilirubin 0.2 (0.0-1.0) mg/dL AST 26 (5-31) U/L ALT 27 (0-31) U/L Alkaline Phosphatase 139 H (39-117) U/L Albumin 2.9 L (3.5-5.0) g/dL All other labs normal. Assessment and Plan (1) Pneumoperitoneum: Status: Acute no evidence of definitive extravasation on ct scan and similar contrast pattern to 2020. Pneumoperitonem likely due to microperforation of anastomotic ulceration although not completely clear at this time the exact location. Pt would be best served under the care of her bariatric surgeon at [facility]. After conversation with attending Dr Loyola, gen surg coverage at [facility], Dr Wang, return of pts bariatric surgeon (Dr Castaneda) tomorrow, and ability to take the pt in direct transfer to [facility] service at [facility] on [address] tomorrow morning, we will recommend the following: remain in the ER Strict NPO IV NS at 150 ml/hr IV ABX - Zosyn and Flagyl IV PPI drip monitoring coordinator bed repeat cbc at 1500 hrs to trend WBC transfer to [address] bariatric service-Dr Castaneda tomorrow morning at 0700 hrs Further decision making to change this plan will be based on any evidence of BP/cardiac instability, fever, significant leukocytosis, evidence of sepsis. Procedures Date of Service Date of Service: 09/09/23
[2023-09-09] MEDS: metroNIDAZOLE/NS 500 MG/100 ML PIGGYBACK 100 MG IV ×2 (12:14→18:40)
[2023-09-09] MEDS: Pantoprazole Sodium 80 MG in 0.9 % Sodium Chloride 80 ML 10 MG IV ×2 (12:22→22:27)
--- NOTE | 2023-09-09 12:25 | PC.NURSE ---
pt spoke w/ dr. crawford/aware of plan of care at this time. medication administered per provider order. plan of care ongoing.
[2023-09-09] MEDS: Lactated Ringers 1,000 ML 125 ML IVCONT (13:28)
--- NOTE | 2023-09-09 13:34 | PC.NURSE ---
pt seemingly uncomfortably as she has to lay still d/t pain increasing w/ movement. prn medication utilized. abx/IVF administered per provider order. respirations remain even/unlabored. plan of care ongoing. call crawford placed within reach.
--- NOTE | 2023-09-09 14:02 | PC.NURSE ---
pt's /HCP called for status update on pt. update given at this time.
[2023-09-09 16:19] LABS: MANUAL DIFF FLAG NO
[2023-09-09 16:32] LABS: Basophils Percent Auto 0.2 % (0-2); Eosinophils Percent Auto 0.1 % (0-4); Hematocrit 25.3 % (37.0-47.0); Imm Gran Abs Auto 0.04 X10*3/uL (0.00-0.03); Imm Gran Pct Auto 0.5 % (0.0-0.4); Lymphocytes Absolute Auto 1.2 X10*3/uL (1.2-4.9); Lymphocytes Percent Auto 14.3 % (20-40); Mean Corpuscular HGB Conc 31.6 g/dl (31.0-35.0); Mean Corpuscular Volume 94.8 fL (80.0-98.0); Mean Platelet Volume 10.8 fL (9.4-12.3); Monocytes Absolute Auto 0.8 X10*3/uL (0.1-1.2); Monocytes Percent Auto 9.3 % (2-11); Neutrophils Absolute Auto 6.5 x10*3/uL (2.0-8.3); Neutrophils Percent Auto 75.6 % (45-73); Platelet Count 227 X10*3/uL (160-400); Red Blood Count 2.67 X10*6/uL (4.20-5.50); Red Cell Distribution Width 12.7 % (11.0-16.0); White Blood Count 8.6 X10*3/uL (4.8-10.8)
--- NOTE | 2023-09-09 17:00 | PC.NURSE ---
pt becoming lightly hypotensive. otherwise vss and up to date. nsr on the plant science professor. dr. curtis notified/aware of pt's BP. pt denies feeling dizzy/lightheaded/etc. repeat cbc obtained by tech. pt only c/o LLQ abd pain at this time - nonradiating. no sob/wob noted. respirations even/unlabored. plan of care ongoing.
[2023-09-09] MEDS: Lactated Ringers 1,000 ML 150 ML IVCONT (17:31)
--- NOTE | 2023-09-09 21:03 | MHC.EDTECH ---
This tech took over care of this patient at this time,hourly rounds and vitals completed,BP is low 94/51 RN was made aware. call crawford in reach
--- NOTE | 2023-09-09 21:22 | MHC.EDTECH ---
Type N Screen drawn and sent to lab,placed band on left wrist
--- NOTE | 2023-09-09 21:49 | PC.NURSE ---
this rn assumed care of pt, pt resting in stretcher, no acute distress noted. pt denies pain at this time. vss.
--- NOTE | 2023-09-09 22:27 | MHC.EDTECH ---
Hourly rounds and vitals completed,BP is low 93/52 RN made aware,patient ambulated to the bathroom with s slow and steady gait,patient urinated
--- NOTE | 2023-09-09 22:31 | PC.NURSE ---
this rn noted that PRBC have been ordered for pt, pt refusing blood transfusion at this time. Man KOCH aware.
--- NOTE | 2023-09-09 23:35 | MHC.EDTECH ---
Call out to [facility] @ [phone] to verify booked ambulance. Spoke to Regan who gave a pick time of 1000 to [facility].
--- NOTE | 2023-09-09 23:42 | MHC.EDTECH ---
Hourly rounds and vitals completed,BP is low 89/48, ,patient stated she is having pain, property appraiser and MD made aware,call crawford in reach
[2023-09-10] VITALS (8 sets, daily range): BP systolic 93–123; BP diastolic 54–73; PULSE 51–75; RESP 14–16; TEMP 36.6–36.9; O2SAT 92–98
[2023-09-10] MEDS: Lactated Ringers 500 ML 999 ML IV (00:07)
--- NOTE | 2023-09-10 00:08 | PC.NURSE ---
provider aware of pt blood pressure, fluid bolus hung at this time.
[2023-09-10] MEDS: metroNIDAZOLE/NS 500 MG/100 ML PIGGYBACK 100 MG IV ×2 (00:13→06:08)
[2023-09-10] MEDS: HYDROmorphone HCl 1 MG/ML SYRINGE IVPUSH ×3 (00:16→08:05)
--- NOTE | 2023-09-10 00:16 | PC.NURSE ---
provider aware of pt BP, okay to give PRN pain medication at this time.
[2023-09-10] MEDS: Lactated Ringers 1,000 ML 150 ML IVCONT ×2 (00:19→07:22)
--- NOTE | 2023-09-10 00:35 | PC.NURSE ---
pt ambulated to bathroom with steady gait.
[2023-09-10] MEDS: Piperacillin Sodium/Tazobactam 4.5 GM in 0.9 % Sodium Chloride 100 ML IV ×2 (01:50→07:22)
--- NOTE | 2023-09-10 03:37 | MHC.EDTECH ---
Hourly rounds and vitals completed,patient is resting comfortably,call crawford in reach
--- NOTE | 2023-09-10 04:39 | PC.NURSE ---
pt reporting 8/10 abdominal pain at this time, pt requesting prn medication. pt medicated per may.
--- NOTE | 2023-09-10 04:39 | MHC.EDTECH ---
Patient ambulated to the bathroom with a steady gait,hourly rounds and vitals completed
--- NOTE | 2023-09-10 06:37 | MHC.EDTECH ---
Hourly rounds and vitals completed,call crawford in reach
--- NOTE | 2023-09-10 07:24 | PC.NURSE ---
resumed care of patient she is currently resting comfortably, currently awaiting transport to [facility] at this time
--- NOTE | 2023-09-10 08:31 | PC.NURSE ---
nursing sup from [facility] ([phone]) called to give room assignment on [facility] room 315, gave this RN the charge nurse number ([phone]) to call and given report. This RN called, but nurse Han was in a room and will call this RN back when available.
[2023-09-10] MEDS: Pantoprazole Sodium 80 MG in 0.9 % Sodium Chloride 80 ML 10 MG IV (09:10)
== END 2023-09-10 10:50 | disposition other institution (70) ==
PROVIDERS: Emergency Medicine Emergency Medical Services; Emergency Provider Emergency Medicine; PCP Registered Nurse
DX: K63.1 Perforation of intestine (nontraumatic) (principal); R07.9 Chest pain, unspecified; R10.13 Epigastric pain; M25.512 Pain in left shoulder; R60.0 Localized edema; R06.02 Shortness of breath; E11.22 Type 2 diabetes mellitus with diabetic chronic kidney disease; I12.9 Hypertensive chronic kidney disease with stage 1 through stage 4 chronic kidney disease, or unspecified chronic kidney disease; N18.30 Chronic kidney disease, stage 3 unspecified; D64.9 Anemia, unspecified; K86.81 Exocrine pancreatic insufficiency; K21.9 Gastro-esophageal reflux disease without esophagitis; Z98.84 Bariatric surgery status; Z87.891 Personal history of nicotine dependence; Z79.4 Long term (current) use of insulin; Z79.899 Other long term (current) drug therapy
CPT/HCPCS: 36415; 71045; 71275; 74177; 80053; 82947; 83605; 83880; 84484; 85025; 85379; 85730; 86850; 86900; 86901; 86923; 87040; 93005; 96361; 96365; 96366; 96367; 96368; 96375; 96376; 99285; 99291; 99292; C9113; J1170; J1836; J1885; J2270; J2405; J2543; J7120; Q9967

== ENCOUNTER → 2023-09-08 23:41 | Outpatient (BNV) | payer OTHER, SELFPAY | PROVIDERS: Emergency Provider Emergency Medicine; PCP Registered Nurse; Visit Provider Internal Medicine Cardiovascular Disease | DX: R07.9 Chest pain, unspecified (principal); R94.31 Abnormal electrocardiogram [ECG] [EKG] | CPT/HCPCS: 93010 ==

== ENCOUNTER → 2023-09-09 01:01 | Outpatient (BNV) | payer OTHER, SELFPAY | PROVIDERS: Emergency Provider Emergency Medicine; PCP Registered Nurse; Visit Provider Physician Assistant Surgical | DX: K66.8 Other specified disorders of peritoneum (principal) | CPT/HCPCS: 99283 ==